=== PATIENT | female | born 1970 | race African-American/Black ===

== ENCOUNTER 2019-04-02 06:58 | Emergency (ER) | payer OTHER, BC ==
[2019-04-02 07:25] VITALS: BP 119/70; PULSE 87; TEMP 98.3; BMI 34.3
[2019-04-02] MEDS ORDERED: ONDANSETRON *ODT* 4 MG TABLET SL ONE (07:31)
[2019-04-02] MEDS ORDERED: ONDANSETRON *ODT* 4 MG TABLET ONE (07:34)
[2019-04-02] MEDS ORDERED: METOCLOPRAMIDE HCL 10 MG TABLET (FP) PO ONE ×2 (08:29→08:40)
--- NOTE | 2019-04-02 08:29 | PDOC ---
History of Present Illness - General History Source: Patient Exam Limitations: No Limitations <Jessica Peña - Last Filed: 04/02/19 09:06> <Immanuel Álvarez - Last Filed: 04/02/19 12:46> - General Chief Complaint: Injury Stated Complaint: R KNEE INJURY Time Seen by Provider: 04/02/19 07:20 Past History - Travel Traveled outside of the country in the last 30 days: No Close contact w/someone who was outside of country & ill: No - Past Medical History COPD: No HTN: Yes Hypercholesterolemia: Yes - Immunization History Immunization Up to Date: Yes - Psycho Social/Smoking Cessation Hx Smoking History: Never smoked Have you smoked in the past 12 months: No Hx Alcohol Use: No Drug/Substance Use Hx: No Substance Use Type: None <Jessica Peña - Last Filed: 04/02/19 09:06> <Immanuel Álvarez - Last Filed: 04/02/19 12:46> - Past Medical History Allergies/Adverse Reactions: Allergies Allergy/AdvReac Type Severity Reaction Status Date / Time metaxalone [From Skelaxin] Allergy Hives Verified 05/16/15 21:30 Home Medications: Ambulatory Orders Atorvastatin Ca [Lipitor -] 40 mg PO HS 05/16/15 Carvedilol 25 mg PO BID 04/02/19 Ondansetron [Zofran Odt -] 4 mg SL TID #10 od.tablet 04/02/19 Oxycodone HCl/Acetaminophen [Percocet 5-325 mg Tablet] 1 tab PO Q6H PRN #10 tab MDD 4 04/02/19 hydrALAZINE HCL [Apresoline -] 25 mg PO TID 04/02/19 Review of Systems - Review of Systems Able to Perform ROS?: Yes Comments:: 04/02/19 08:19 CONSTITUTIONAL: Absent: fever, chills, diaphoresis, generalized weakness, malaise, loss of appetite MUSCULOSKELETAL: Present: R knee pain Absent: myalgia, arthralgia, joint swelling SKIN: Absent: rash, itching, pallor NEUROLOGIC: Absent: headache, focal weakness or paresthesias, dizziness, unsteady gait, seizure, mental status changes, bladder or bowel incontinence PSYCHIATRIC: Absent: anxiety, depression, suicidal or homicidal ideation, hallucinations. Is the patient limited Guamanian proficient: No <Jessica Peña - Last Filed: 04/02/19 09:06> *Physical Exam - Vital Signs Last Vital Signs Temp Pulse Resp BP Pulse Ox 98.3 F 87 20 119/70 99 04/02/19 07:16 04/02/19 07:16 04/02/19 07:16 04/02/19 07:16 04/02/19 07:16 - Physical Exam 04/02/19 08:20 GENERAL: The patient is awake, alert, and fully oriented, in no acute distress. HEAD: Normal with no signs of trauma. EYES: Pupils equal, round and reactive to light, extraocular movements intact, sclera anicteric, conjunctiva clear. EXTREMITIES: Normal range of motion, no edema. NEUROLOGICAL: Tenderness to palpation of the distal right knee. Positive Janeth's test. (-) anterior draw, varus/valgus stress, Normal speech, normal gait. PSYCH: Normal mood, normal affect. SKIN: Warm, Dry, normal turgor, no rashes or lesions noted. <Jessica Peña - Last Filed: 04/02/19 09:06> - Vital Signs Last Vital Signs Temp Pulse Resp BP Pulse Ox 98.3 F 87 20 119/70 99 04/02/19 07:16 04/02/19 07:16 04/02/19 07:16 04/02/19 07:16 04/02/19 07:16 <Immanuel Álvarez - Last Filed: 04/02/19 12:46> ED Treatment Course - RADIOLOGY Radiology Studies Ordered: Category Date Time Status KNEE 3 POS-RIGHT [RAD] Stat Radiology 04/02/19 07:32 Ordered - Medications Given in the ED: ED Medications Discontinued Medications Generic Name Dose Route Start Last Admin Trade Name Freq PRN Reason Stop Dose Admin Ondansetron HCl 4 mg 04/02/19 07:31 04/02/19 07:35 Zofran Odt - SL 04/02/19 07:32 4 mg ONCE ONE Administration Oxycodone/Acetaminophen 1 combo 04/02/19 07:31 04/02/19 07:35 Percocet 5/325 - PO 04/02/19 07:32 1 combo ONCE ONE Administration <Jessica Peña - Last Filed: 04/02/19 09:06> - Medications Given in the ED: ED Medications Discontinued Medications Generic Name Dose Route Start Last Admin Trade Name Tolu PRN Reason Stop Dose Admin Metoclopramide HCl 10 mg 04/02/19 08:29 04/02/19 08:40 Reglan - PO 04/02/19 08:30 10 mg ONCE ONE Administration Ondansetron HCl 4 mg 04/02/19 07:31 04/02/19 07:35 Zofran Odt - SL 04/02/19 07:32 4 mg ONCE ONE Administration Oxycodone/Acetaminophen 1 combo 04/02/19 07:31 04/02/19 07:35 Percocet 5/325 - PO 04/02/19 07:32 1 combo ONCE ONE Administration <Immanuel Álvarez - Last Filed: 04/02/19 12:46> Medical Decision Making - Medical Decision Making 04/02/19 09:11 The patient is a 48-year-old female who presents the ER with right knee pain. 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 She states that it immediately swelled up. She states that it hurts to walk up the steps or to squat. Denies fevers, chills, numbness and tingling and weakness the affected extremity. A/P: Right knee pain On exam positive Rich's test with medial stressing of the right foot. X-ray shows no acute pathology. Oxycodone given for relief of pain. Patient took Tylenol at home with no relief yesterday. Concern for meniscus injury We will refer to orthopedics. Percocet prescription written. I stop was referenced. No outstanding prescriptions for narcotics noted Patient given knee immobilizer and crutches, weight-bear as tolerated Discharge home I discussed the physical exam findings, ancillary test results and final diagnoses with the patient. I answered all of the patient's questions. The patient was satisfied with the care received and felt comfortable with the discharge plan and treatment plan. The Patient agrees to follow up with the primary care physician/specialist within 24-72 hours. Return precautions were given. <Jessica Peña - Last Filed: 04/02/19 09:06> - Medical Decision Making 04/02/19 12:46 I reviewed the case of the mid-level practitioner and was available for consultation while in the emergency department <Immanuel Álvarez - Last Filed: 04/02/19 12:46> Discharge - Discharge Information Problems reviewed: Yes - Admission No - Additional Discharge Information Prescription Drug Monitoring Program (I-STOP) results: I-STOP reviewed and no issues identified (Reference #: [id number]) <Jessica Peña - Last Filed: 04/02/19 09:06> <Immanuel Álvarez - Last Filed: 04/02/19 12:46> - Discharge Information Clinical Impression/Diagnosis: Right knee pain Qualifiers: Chronicity: acute Qualified Code(s): M25.561 - Pain in right knee Condition: Stable Disposition: HOME - Additional Discharge Information Prescriptions: Ondansetron [Zofran Odt -] 4 mg SL TID #10 od.tablet Oxycodone HCl/Acetaminophen [Percocet 5-325 mg Tablet] 1 tab PO Q6H PRN #10 tab MDD 4 PRN Reason: Pain - Follow up/Referral Referrals: Minal Rachel [Primary Care Provider] - Michael Jackson MD [Staff Physician] - - Patient Discharge Instructions Patient Printed Discharge Instructions: DI for Knee Pain Additional Instructions: You were evaluated for your knee pain today I suspect you may have injured your meniscus Take the Percocet every 6 hours as needed for pain. Do not drink or drive after taking this medication as it may make you drowsy You may apply heat to the area to help with your pain. Please wear the knee immobilizer and use the crutches. You may weight-bear as tolerated. You may take the knee immobilizer off to shower. Please follow-up with orthopedics within the week. A referral has been provided to you. Return to the ER for worsening pain, numbness and tingling down the leg or if you have any changes in your symptoms. - Post Discharge Activity Work/Back to School Note: Back to Work
== END 2019-04-02 09:30 | disposition home or self-care (01) ==
LOC: JER 06:58
CPT/HCPCS: 73562-TC-RT-FY; 99282-25; Q0162

== ENCOUNTER 2020-01-11 23:04 | Inpatient (IN) | payer BC, OTHER ==
--- OUTSIDE RECORDS SUMMARY | 2020-01-11 23:31 | XMS ---
:1970 [facility] Care Team Providers Name Role Phone Merary De La Cruz Unavailable Unavailable Errol Wilkinson MD Unavailable Unavailable Other Unavailable Unavailable MD Joyce Unavailable Unavailable MD Demario Unavailable Unavailable MD Demario Unavailable Unavailable MD Demario Unavailable Unavailable Re-disclosure Warning The records that you are about to access may contain information from federally- assisted alcohol or drug abuse programs. If such information is present, then the following federally mandated warning applies: This information has been disclosed to you from records protected by federal confidentiality rules (42 CFR part 2). The federal rules prohibit you from making any further disclosure of this information unless further disclosure is expressly permitted by the written consent of the person to whom it pertains or as otherwise permitted by 42 CFR part 2. A general authorization for the release of medical or other information is NOT sufficient for this purpose. The Federal rules restrict any use of the information to criminally investigate or prosecute any alcohol or drug abuse patient.The records that you are about to access may contain highly sensitive health information, the redisclosure of which is protected by Article 27-F of the [place] State Public Health law. If you continue you may haveaccess to information: Regarding HIV / AIDS; Provided by facilities licensed or operated by the [facility] Office of Mental Health; or Provided by the [facility] Office for People With Developmental Disabilities. If such information is present, then the following [facility] mandated warning applies: This information has been disclosed to you from confidential records which are protected by state law. State law prohibits you from making any further disclosure of this information without the specific written consent of the person to whom it pertains, or as otherwise permitted by law. Any unauthorized further disclosure in violation of state law may result in a fine or senior care sentence or both. A general authorization for the release of medical or other information is NOT sufficient authorization for further disclosure. Allergies and Adverse Reactions Type Description Substance Reaction Status Data Source(s ) Drug allergy metaxalone metaxalone [facility] Encounters Encounter Providers Location Date Indications Data Source(s ) Outpatient Attender: ICU-LAB 10/21/2019 [facility] Josh Cook 10:05:00 AM Hospit al EDT - 10/21/2019 11:59:00 PM EDT Patient discharged. Emergency Attender: Merary ICU-EMERG 09/17/2019 COVID TEST S - Trisha Quirosttender: Doctor 11:58:00 AM EDT Angelica Other - 09/17/2019 [facility] 12:45:00 PM EDT COVID TEST Patient discharged. Emergency Attender: Verónica ICU-EMERG 09/16/2019 RAPID COVID [facility] Josh Hanks 06:31:00 PM EDT - TEST FOR Marii e CHERRYttender: Doctor 09/16/2019 [facility] Other 08:19:00 PM EDT RAPID COVID TEST FOR DIALYSIS Patient discharged. Outpatient Attender: Errol 04/09/2019 08:43:00 AM [facility] Wilkinson MD [facility] Hospital SCREENING Medications Medication Brand Start Product Dose Route Administrative Pharmacy [facility] Indications Reaction Description Data Name Date Form Instructions Instructions Source(s) Hydralazine hydrAL 1 P78502 active HydrALA ZINE [facility] Hydrochlori AZINE {tab( Hydrochlori d Health de 50 MG 50 mg s)} e System Oral Tablet oral hydrALAZINE tablet 50 mg oral tablet atorvastati atorva 1 K53092 active Lipitor [facility] n 40 MG statin {tab( Health Oral Tablet 40 mg s)} System atorvastati oral n 40 mg tablet oral tablet carvedilol carved 2 H67817 active Carvedil ol [facility] 25 MG Oral ilol {tab( Health Tablet 25 mg s)} System carvedilol oral 25 mg oral tablet tablet Insurance Providers Payer name Policy type Policy ID Covered Covered green party's Policy P armaan / Coverage green party ID relationship to [employer] ormation type [place] [employer] [id number] 1 [id number] [facility] BLUE CROSS [id number] PT [id number] [place] [id number] SP [id number] BC INDEMNITY [id number] SP [id number] PENDING WC/NF [id number] SP [id number] ONLY Problems, Conditions, and Diagnoses Code Display Name Description Problem Type Effective Data Sour ce(s) Dates I12.0 Hypertensive Hypertensive renal Diagnosis 09/17/2019 [facility] - New chronic kidney disease with stage 11:58:00 AM R ochelle disease with 5 chronic kidney EDT Hospit al stage 5 chronic disease or end kidney disease or stage renal disease end stage renal disease N18.6 End stage renal End-stage renal Diagnosis 09/17/2019 S - New disease disease 11:58:00 AM [facility] COVID TEST COVID TEST Diagnosis 09/17/2019 S - New 11:58:00 AM [facility] Z11.59 Encounter for Special screening Diagnosis 09/17/2019 [facility] - New screening for examination for 11:58:00 AM [facility] other viral other specified EDT Hospital diseases viral diseases RAPID COVID TEST RAPID COVID TEST Diagnosis 09/16/2019 [facility] S - New FOR DIALYSIS FOR DIALYSIS 06:31:00 PM [facility] E78.5 Hyperlipidemia, Hyperlipidemia Diagnosis 09/16/2019 S - New unspecified 06:31:00 PM [facility] Z13.9 Encounter for Encounter for Diagnosis 09/16/2019 S - Ne w screening, screening 06:31:[address] [facility] Z03.818 Encounter for Encounter for Diagnosis 09/16/2019 S - Ne w observation for observation for 06:31:00 PM [facility]art suspected suspected exposure EDT Hospit al exposure to other to other biological biological agents agent, ruled out ruled out Z12.39 Encounter for Z12.39 Diagnosis 04/09/2019 [facility] other screening 08:43:00 AM Hospital for malignant EST neoplasm of breast Z12.31 Encounter for Z12.31 Diagnosis 04/09/2019 [facility] screening 08:43:00 AM Hospital mammogram for EST malignant neoplasm of breast Surgeries/Procedures Procedure Description Date Indications Data Source(s) Venipuncture 10/21/2019 [facility] th 10:08:02 AM EDT - System 10/21/2019 12:00:07 PM EDT COVID-19.. RNA Swab 09/17/2019 [facility] 12:07:48 PM EDT - System 09/17/2019 12:08:00 PM EDT Results ID Date Data Source [id number] 11/29/2019 01:41:00 PM EDT [facility] Name Value Range Interpretation Code Description Data Valery rce(s) Supporting Document(s ) SARS-CoV-2 [facility] RNA [facility] Ql ZARINA+probe This lab was ordered by [facility] a nd reported by [facility]. ID Date Data Source [id number] 11/02/2019 11:53:00 AM EDT [facility] Name Value Range Interpretation Code Description Data Valery rce(s) Supporting Document(s ) SARS-CoV-2 [facility] RNA [facility] Ql ZARINA+probe This lab was ordered by [facility] a nd reported by [facility]. ID Date Data Source [id number] 10/27/2019 02:01:23 AM EDT [facility] Name Value Range Interpretation Description Data Sup porting Code Source(s) Document(s ) 55258-4 NEGATIVE Testing Normal (applies COVID-19.. [facility] using Leos ID results) NOW COVID-19, an isothermal nucleic acid amplification technology for the qualitative detection of nucleic acid from the SARS-CoV-2 viral RNA in respiratory specimens. The ID NOW COVID-19 test has been approved by the Food and Drug Administration (FDA) under an Emergency Use Authorization for use by authorized laboratories. Reference Range: NEGATIVE . ID Date Data Source [id number] 10/27/2019 02:01:23 AM EDT [facility] Name Value Range Interpretation Description Data Sup porting Code Source(s) Document(s ) 35585-5 NEGATIVE Testing Normal (applies COVID-19.. [facility] was performed to [facility] using [facility] ID results) NOW COVID-19, an isothermal nucleic acid amplification technology for the qualitative detection of nucleic acid from the SARS-CoV-2 viral RNA in respiratory specimens. The ID NOW COVID-19 test has been approved by the Food and Drug Administration (FDA) under an Emergency Use Authorization for use by authorized laboratories. Reference Range: NEGATIVE . ID Date Data Source [id number] 09/27/2019 01:25:00 PM EDT [facility] Name Value Range Interpretation Code Description Data Valery rce(s) Supporting Document(s ) SARS-CoV-2 [facility] Ql ZARINA+probe This lab was ordered by [facility] a nd reported by [facility]. ID Date Data Source [id number] 09/17/2019 12:10:00 PM EDT [facility] Name Value Range Interpretation Code Description Data Valery rce(s) Supporting Document(s ) COVID-19.. [facility] This lab was ordered by [facility] and reported by [facility]. ID Date Data Source [id number] 09/16/2019 06:41:00 PM EDT [facility] Name Value Range Interpretation Code Description Data Valery rce(s) Supporting Document(s ) COVID-19.. [facility] This lab was ordered by [facility] and reported by [facility]. ID Date Data Source [id number] 09/13/2019 04:32:00 PM EDT [facility] Name Value Range Interpretation Code Description Data Valery rce(s) Supporting Document(s ) COV2 [facility] This lab was ordered by MITRA MOY a nd reported by [facility]. ID Date Data Source [id number] 08/28/2019 05:04:00 PM EDT [facility] Name Value Range Interpretation Code Description Data Valery rce(s) Supporting Document(s ) COV2 [facility] This lab was ordered by MITRA harrison nd reported by [facility]. ID Date Data Source [id number] 07/20/2019 12:00:00 AM EDT [facility] Name Value Range Interpretation Code Description Data Valery rce(s) Supporting Document(s ) OVER [facility] This lab was ordered by [facility] and reported by [employer] [facility]. Procedure Vital Signs ID Date Data Source UNK Name Value Range Interpretation Code Description Data Source(s) Body surface area 2.1 m2 2.1 m2 [facility] from [facility] formula Body mass index 34.8 kg/m2 34.8 kg/m2 [facility] (BMI) [Ratio] [facility] Body weight 103.87 kg 103.87 kg [facility] Body height 172.72 cm 172.72 cm [facility] Body temperature 98.4 [degF] 0 - 200 Normal (applies to 98.4 [degF ] [facility] non-numeric results) [facility] Body temperature 36.8 Robyn 0 - 99.9 Normal (applies to 36.8 Robyn [facility] non-numeric results) [facility] Diastolic blood 81 mm[Hg] 0 - 999 Normal (applies to 81 mm[Hg] [facility] pressure non-numeric results) [facility] Systolic blood 149 mm[Hg] 0 - 999 Above high normal 149 mm[Hg] [facility] pressure [facility] Oxygen saturation 97 % 0 - 999 Normal (applies to 97 % [facility] in Arterial blood non-numeric results) [facility] by Pulse oximetry Respiratory rate 16 0 - 999 Normal (applies to 16 [facility] non-numeric results) [facility] Heart rate 85 0 - 999 Normal (applies to 85 [facility] non-numeric results) [facility] Body surface area 2.1 m2 2.1 m2 [facility] Derived [facility] formula Body mass index 34.8 kg/m2 34.8 kg/m2 [facility] (BMI) [Ratio] [facility] Body weight 103.87 kg 103.87 kg [facility] Body height 172.72 cm 172.72 cm [facility] Body temperature 99 [degF] 0 - 200 Normal (applies to 99 [degF] [facility] non-numeric results) [facility] Body temperature 37.2 Robyn 0 - 99.9 Normal (applies to 37.2 Robyn [facility] non-numeric results) [facility] Diastolic blood 73 mm[Hg] 0 - 999 Normal (applies to 73 mm[Hg] [facility] pressure non-numeric results) [facility] Systolic blood 134 mm[Hg] 0 - 999 Normal (applies to 134 mm[Hg] [facility] pressure non-numeric results) [facility] Oxygen saturation 98 % 0 - 999 Normal (applies to 98 % [facility] in Arterial blood non-numeric results) [facility] by Pulse oximetry Respiratory rate 17 0 - 999 Normal (applies to 17 [facility] non-numeric results) [facility] Heart rate 86 0 - 999 Normal (applies to 86 [facility] non-numeric results) [facility] Patient Treatment Plan of Care Planned Activity Planned Date Details Description Data Source (s) atorvastatin 40 MG Oral [facility] Tablet Hydralazine Hydrochloride 50 [facility] MG Oral Tablet carvedilol 25 MG Oral Tablet [facility]
--- NOTE | 2020-01-12 00:12 | PDOC ---
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 She reports that the flank pain began after a peritoneal dialysis 5 days ago, and she is concerned that the line may not have been fully primed leading to air in her peritoneum. She reports 7/10 pleuritic chest pain that radiates to her R flank. She reports speaking with her gis coordinator (Dr. Ochoa) who encouraged her to present to the ED. She reports nausea, shortness of breath, chest pain. No similar prior episodes. 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 Past History - Medical History Allergies/Adverse Reactions: Allergies Allergy/AdvReac Type Severity Reaction Status Date / Time metaxalone [From Skelaxin] Allergy Hives Verified 05/16/15 21:30 Home Medications: Ambulatory Orders Atorvastatin Ca [Lipitor -] 40 mg PO HS 05/16/15 Carvedilol 25 mg PO BID 04/02/19 Ondansetron [Zofran Odt -] 4 mg SL TID #10 od.tablet 04/02/19 Oxycodone HCl/Acetaminophen [Percocet 5-325 mg Tablet] 1 tab PO Q6H PRN #10 tab MDD 4 04/02/19 hydrALAZINE HCL [Apresoline -] 25 mg PO TID 04/02/19 COPD: No Dialysis: Yes (ESRD) HTN: Yes Hypercholesterolemia: Yes - Reproductive History Is Patient Now?: No - Immunization History Immunization Up to Date: Yes - Psycho-Social/Smoking History Smoking History: Never smoked Have you smoked in the past 12 months: No - Substance Abuse Hx (Audit-C & DAST Scrn) How often the patient has a drink containing alcohol: Never Score: In Men: 4 or > Positive; In Women: 3 or > Positive: 0 Screen Result (Pos requires Nsg. Audit-10AR): Negative Review of Systems - Review of Systems Able to Perform ROS?: Yes Comments:: 01/12/20 05:27 GENERAL/CONSTITUTIONAL: Fevers. No chills. No weakness. HEAD, EYES, EARS, NOSE AND THROAT: No change in vision. No ear pain or discharge. No sore throat. CARDIOVASCULAR: Chest pain, shortness of breath RESPIRATORY: No cough, wheezing, or hemoptysis. GASTROINTESTINAL: Nausea. No vomiting, diarrhea or constipation. GENITOURINARY: No dysuria, frequency, or change in urination. MUSCULOSKELETAL: No joint or muscle swelling or pain. No neck or back pain. SKIN: No rash NEUROLOGIC: No headache, vertigo, loss of consciousness, or change in strength/sensation. ENDOCRINE: No increased thirst. No abnormal weight change HEMATOLOGIC/LYMPHATIC: No anemia, easy bleeding, or history of blood clots. ALLERGIC/IMMUNOLOGIC: No hives or skin allergy. *Physical Exam - Vital Signs Last Vital Signs Temp Pulse Resp BP Pulse Ox 99.1 F 130 H 20 105/69 96 01/11/20 23:12 01/11/20 23:12 01/11/20 23:12 01/11/20 23:12 01/11/20 23:12 - Physical Exam 01/12/20 05:27 GENERAL: Awake, alert, and fully oriented, in no acute distress HEAD: No signs of trauma, normocephalic, atraumatic EYES: PERRLA, EOMI, sclera anicteric, conjunctiva clear ENT: Auricles normal inspection, hearing grossly normal, nares patent, oropharynx clear without exudates. Moist mucosa NECK: Normal ROM, supple, no lymphadenopathy, JVD, or masses LUNGS: No distress, speaks full sentences, clear to auscultation bilaterally HEART: Regular rate and rhythm, normal S1 and S2, no murmurs, rubs or gallops, peripheral pulses normal and equal bilaterally. ABDOMEN: Peritoneal dialysis port. Soft, nontender, normoactive bowel sounds. No guarding, no rebound. No masses EXTREMITIES : Normal inspection, Normal range of motion, no edema. No clubbing or cyanosis NEUROLOGICAL: Cranial nerves II through XII grossly intact. Normal speech, normal gait, no focal sensorimotor deficits SKIN: Warm, Dry, normal turgor, no rashes or lesions noted ED Treatment Course - LABORATORY CBC & Chemistry Diagram: 01/12/20 00:50 01/12/20 00:50 Medical Decision Making - Medical Decision Making 49F w/hx ESRD on peritoneal dialysis p/w 4 days of intermittent fevers, pleuritic chest pain, tachycardic to 130s with O2% to 95% on room air. Ddx PE given tachycardia, chest pain, decreased O2%. SBP unlikely without ascites. Pneumonia vs other infectious etiology also possible given intermittent fevers. 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 Plan: CBC CMP EKG CXR Blood cultures UA urine culture Acetaminophen Nephrology consult CTA chest pending nephrology consult Dispo: admit --- Attempted to reach Dr. Ochoa (patient's gis coordinator). No answer to contact phone number. Plan for consult with on-call gis coordinator, Dr. Deluca, prior to CTA chest. 01/12/20 03:02 Case d/w Nephrology (Dr. Deluca) Peritoneal dialysis not a contraindication to contrast load if clinical suspicion for PE. Plan for CTA Chest, HD tomorrow 01/12/20 04:51 Per imaging supervisor home energy consultant read: No PE visualized R sided pneumonia Abx ordered Plan for admission for HD tomorrow, pneumonia, worsening kidney function despite peritoneal dialysis regimen 01/12/20 05:26 Discharge - Discharge Information Problems reviewed: Yes Clinical Impression/Diagnosis: Pneumonia Qualifiers: Pneumonia type: due to unspecified organism Laterality: right Lung location: lower lobe of lung Qualified Code(s): J18.9 - Pneumonia, unspecified organism Condition: Stable - Admission Yes - Follow up/Referral - Patient Discharge Instructions - Post Discharge Activity
[2020-01-12] MEDS ORDERED: ACETAMINOPHEN 1000 MG/100 ML VIAL (NON FORMULARY) IVPB ONE ×3 (00:26→23:00)
[2020-01-12] MEDS ORDERED: PANTOPRAZOLE SODIUM 40 MG VIAL IVPUSH ONE (00:26)
[2020-01-12] MEDS ORDERED: ACETAMINOPHEN INJECTION 100 ML IVPB ONE ×2 (00:38→05:40)
[2020-01-12] MEDS ORDERED: PANTOPRAZOLE SODIUM 40 MG VIAL ONE (00:38)
[2020-01-12 01:14] LABS: BASO % 0.7 % (0-2.0); EOS % 0.4 % (0-4.5); HEMATOCRIT 41.1 % (32.4-45.2); HEMOGLOBIN 13.1 GM/dL (10.7-15.3); LYMPH % 8.4 % (8-40); MCH 28.5 pg (25.7-33.7); MCHC 31.8 g/dl (32.0-36.0); MEAN CELL VOLUME 89.5 fl (80-96); MEAN PLT VOLUME 8.6 fl (7.5-11.1); MONO % 8.8 % (3.8-10.2); NEUT % 81.7 % (42.8-82.8); PLATELET COUNT 270 K/MM3 (134-434); RDW 15.8 % (11.6-15.6)
--- NOTE | 2020-01-12 01:24 | PDOC ---
Attending Attestation - Resident Resident Name: ElsyBruno fraknlin - ED Attending Attestation I have performed the following: I have examined & evaluated the patient, The case was reviewed & discussed with the resident, I agree w/resident's findings & plan, Exceptions are as noted - HPI HPI: 01/12/20 01:22 49-year-old female with a longstanding history of kidney disease, FSGS who started peritoneal dialysis 1 month ago and presents with right sided back pain with inspiration Her technical supervisor is Valdemar She reports intermittent fevers for several days and today it was 101.1 at home 01/12/20 01:24 - Physicial Exam PE: 01/12/20 01:57 49-year-old female presents with complaint of several days of intermittent fevers, pleuritic pain and right upper back pain Head normocephalic atraumatic Neck is supple Lungs are clear to auscultation bilaterally CVS tachycardia Abdomen no rebound Right flank tenderness Skin warm and dry Neuro axox3.ambulatory - Medical Decision Making 01/12/20 01:58 plan Lals/ekg/imaging case discussed with Dr Migdalia Narayan 01/12/20 01:59 case S/O to B team, Dr Miller Discharge - Discharge Information Problems reviewed: Yes Clinical Impression/Diagnosis: Pneumonia Qualifiers: Pneumonia type: due to unspecified organism Laterality: right Lung location: lower lobe of lung Qualified Code(s): J18.9 - Pneumonia, unspecified organism Condition: Improved Disposition: HOME - Follow up/Referral - Patient Discharge Instructions - Post Discharge Activity
[2020-01-12 01:40] LABS: ALBUMIN 2.9 g/dl (3.4-5.0); ALK PHOS 98 U/L (45-117); ANION GAP 14 MMOL/L (8-16); BLOOD UREA NITROGEN 64.6 mg/dL (7-18); CHLORIDE 94 mmol/L (98-107); CO2 26 mmol/L (21-32); GLUCOSE,RANDOM 117 mg/dL (74-106); POTASSIUM 3.6 mmol/L (3.5-5.1); SGOT/AST 15 U/L (15-37); SODIUM 135 mmol/L (136-145)
[2020-01-12 01:44] LABS: BILIRUBIN,TOTAL 0.2 mg/dL (0.2-1); LIPASE 121 U/L (73-393); SGPT/ALT 28 U/L (13-61); TOT PROT 7.7 g/dl (6.4-8.2)
[2020-01-12 02:07] LABS: PROTHROMBIN TIME (PATIENT) 13.5 SEC (9.7-13.0)
[2020-01-12 02:18] LABS: ACTIVATED PTT 30.7 SECONDS (25.2-36.5); INR 1.14 (0.83-1.09)
[2020-01-12 02:47] LABS: EPI CELLS >36 /uL (0-25.1); HYALINE CASTS 4 /uL (0-3.1); URINE APPEARANCE TURBID; URINE BILIRUBIN NEGATIVE (NEGATIVE); URINE COLOR YELLOW; URINE GLUCOSE (UA) NEGATIVE (NEGATIVE); URINE KETONE NEGATIVE (NEGATIVE); URINE LEUK ESTERASE TRACE (NEGATIVE); URINE NITRITE NEGATIVE (NEGATIVE); URINE PROTEIN 3+ (NEGATIVE); URINE RBC 9 /uL (0-23.9); URINE UROBILINOGEN 0.2 mg/dL (0.2-1.0); URINE WBC 218 /uL (0-25.8)
[2020-01-12 03:42] LABS: URINE BACTERIA 1090.4 /uL (0-1359)
[2020-01-12] MEDS ORDERED: AZITHROMYCIN IVPB 500 MG in DEXTROSE 5%-WATER - 250 ML IVPB ONE (04:45)
[2020-01-12] MEDS ORDERED: CEFTRIAXONE 1,000 MG in DEXTROSE 5%-WATER - 50 ML IVPB ONE (04:45)
[2020-01-12] MEDS ORDERED: morphine CARPU-JECT 4 MG/1 ML DISP.SYRIN IVPUSH ONE (04:51)
[2020-01-12] MEDS ORDERED: CEFTRIAXONE 1 GM/50 ML BAG ONE (05:12)
--- OUTSIDE RECORDS SUMMARY | 2020-01-12 05:51 | XMS ---
:1970 Author Organization [facility] Care Team Providers Name Role Phone Antoinepadmini Bellehunter Unavailable Unavailable Errol Wilkinson MD Unavailable Unavailable [...] is protected by Article 27-F of the [facility] Public Health law. If you continue you may haveaccess to information: Regarding HIV / AIDS; Provided by facilities licensed or operated by the [facility] Office of Mental Health; or Provided by the [facility] Office for People With Developmental Disabilities. If such information is present, then the following [facility] mandated warning applies: This information has been [...] law may result in a fine or mcc sentence or both. A general authorization for the release of medical or other information is NOT sufficient authorization for further disclosure. Allergies and Adverse Reactions Type Description Substance Reaction Status Data Source(s ) Drug allergy metaxalone metaxalone [facility] Encounters Encounter Providers Location Date Indications Data Source(s ) Outpatient Attender: ICU-LAB 10/21/2019 [facility] Josh Cook 10:05:00 AM Hospit al EDT - 10/21/2019 11:59:00 PM EDT Patient discharged. Emergency Attender: Merary ICU-EMERG 09/17/2019 COVID TEST S - Trisha Thomasender: Doctor 11:58:00 AM EDT Angelica Other - 09/17/2019 [facility] 12:45:00 PM EDT COVID TEST Patient discharged. Emergency Attender: Verónica ICU-EMERG 09/16/2019 RAPID COVID [facility] Josh Hanks 06:31:00 PM EDT - TEST FOR Marii e CHERRYttender: Doctor 09/16/2019 [facility] Other 08:19:00 PM EDT RAPID COVID TEST FOR DIALYSIS Patient discharged. Outpatient Attender: Errol 04/09/2019 08:43:00 AM FRANKLIN Wilkinson MD [facility] SCREENING Medications Medication Brand Start Product Dose Route Administrative Pharmacy [facility] Indications Reaction Description Data Name Date Form Instructions Instructions Source(s) Hydralazine hydrAL 1 R63841 active HydrALA ZINE [facility] Hydrochlori AZINE {tab( Hydrochlori d Health de 50 MG 50 mg s)} e System Oral Tablet oral hydrALAZINE tablet 50 mg oral tablet atorvastati atorva 1 [id number] active Lipitor [facility] n 40 MG statin {tab( Health Oral Tablet 40 mg s)} System atorvastati oral n 40 mg tablet oral tablet carvedilol carved 2 K73228 active Carvedil ol [facility] 25 MG Oral ilol {tab( Health Tablet 25 mg s)} System carvedilol oral 25 mg oral tablet tablet Insurance Providers Payer name Policy type Policy ID Covered Covered constitution party's Policy P armaan / Coverage constitution party ID relationship to [employer] ormation type [employer] BC INDEMNITY [id number] SP [id number] BC PPO [id number] SP [id number] [place] [employer] [id number] 1 [id number] [place] BLUE CROSS [id number] PT [id number] [place] [id number] SP [id number] BC INDEMNITY [id number] SP [id number] PENDING WC/NF [id number] SP [id number] ONLY Problems, Conditions, and Diagnoses Code [...] End stage renal End-stage renal Diagnosis 09/17/2019 [facility] - New disease disease 11:58:00 AM [facility] COVID TEST COVID TEST Diagnosis 09/17/2019 [facility] - New 11:58:00 AM [facility] Z11.59 Encounter for Special screening Diagnosis 09/17/2019 [facility] - New screening for examination for 11:58:00 AM Gabriella lle other viral other specified EDT Hospital diseases viral diseases RAPID COVID TEST RAPID COVID TEST Diagnosis 09/16/2019 MH S - New FOR DIALYSIS FOR DIALYSIS 06:31:00 PM [facility] E78.5 Hyperlipidemia, Hyperlipidemia Diagnosis 09/16/2019 [facility] - New unspecified 06:31:00 PM [facility] Z13.9 Encounter for Encounter for Diagnosis 09/16/2019 S - Ne w screening, screening 06:31:00 PM [place] unspecified [facility] Z03.818 Encounter for Encounter for Diagnosis 09/16/2019 [facility] - Ne w observation for observation for 06:31:00 PM [place] suspected suspected exposure EDT Hospit al exposure to other to other biological biological agents agent, ruled out ruled out Z12.39 Encounter for Z12.39 Diagnosis 04/09/2019 [facility] s other screening 08:43:00 AM Hospital for malignant EST neoplasm of breast Z12.31 Encounter for Z12.31 Diagnosis 04/09/2019 [facility] s screening 08:43:00 AM Hospital mammogram for EST malignant neoplasm of breast Surgeries/Procedures Procedure Description Date Indications Data Source(s) Venipuncture 10/21/2019 [facility] 10:08:02 AM EDT - System 10/21/2019 12:00:07 PM EDT COVID-19.. RNA Swab 09/17/2019 [facility] 12:07:48 PM EDT - System 09/17/2019 12:08:00 PM EDT Results ID Date Data Source [id number] 11/29/2019 01:41:00 PM EDT [facility] System Name Value Range Interpretation Code Description Data Valery rce(s) Supporting Document(s ) SARS-CoV-2 [facility] RNA [facility] Ql ZARINA+probe This lab was ordered by [facility] a nd reported by [facility]. ID Date Data Source [id number] 11/02/2019 11:53:00 AM EDT [facility] Name Value Range Interpretation Code Description Data Valery rce(s) Supporting Document(s ) SARS-CoV-2 [facility] RNA [facility] Ql ZARINA+probe This lab was ordered by [facility] a nd reported by [facility]. ID Date Data Source [id number] 10/27/2019 02:01:23 AM EDT [facility] Name Value Range Interpretation Description Data Sup porting Code Source(s) Document(s ) 35573-2 NEGATIVE Testing Normal (applies COVID-19.. [facility] was performed to non-numeric Health Syst em using Leos ID results) NOW COVID-19, an isothermal nucleic acid amplification technology for the qualitative detection of nucleic acid from the SARS-CoV-2 viral RNA in respiratory specimens. The ID NOW COVID-19 test has been approved by the Food and Drug Administration (FDA) under an Emergency Use Authorization for use by authorized laboratories. Reference Range: NEGATIVE . ID Date Data Source [id number] 10/27/2019 02:01:23 AM EDT [facility] Name Value Range Interpretation Description Data Sup porting Code Source(s) Document(s ) 45923-8 NEGATIVE Testing Normal (applies COVID-19.. [facility] was performed to non-numeric Health Syst em using Leos ID results) NOW COVID-19, an isothermal nucleic acid amplification technology for the qualitative detection of nucleic acid from the SARS-CoV-2 viral RNA in respiratory specimens. The ID NOW COVID-19 test has been approved by the Food and Drug Administration (FDA) under an Emergency Use Authorization for use by authorized laboratories. Reference Range: NEGATIVE . ID Date Data Source [id number] 09/27/2019 01:25:00 PM EDT [facility] Name Value Range Interpretation Code Description Data Valery rce(s) Supporting Document(s ) SARS-CoV-2 [facility] Ql ZARINA+probe This lab was ordered by [facility] nd reported by [facility]. ID Date Data Source [id number] 09/17/2019 12:10:00 PM EDT [facility] Name Value Range Interpretation Code Description Data Valery rce(s) Supporting Document(s ) COVID-19.. [facility] This lab was ordered by [facility] and reported by [facility]. ID Date Data Source [id number] 09/16/2019 06:41:00 PM EDT [facility] Name Value Range Interpretation Code Description Data Valery rce(s) Supporting Document(s ) COVID-19.. [facility] This lab was ordered by [facility] and reported by [facility]. ID Date Data Source [id number] 09/13/2019 04:32:00 PM EDT [facility] Name Value Range Interpretation Code Description Data Valery rce(s) Supporting Document(s ) COV2 [facility] This lab was ordered by [facility] nd reported by [facility]. ID Date Data Source [id number] 08/28/2019 05:04:00 PM EDT [facility] Name Value Range Interpretation Code Description Data Valery rce(s) Supporting Document(s ) COV2 [facility] This lab was ordered by [facility] nd reported by [facility]. ID Date Data Source [id number] 07/20/2019 12:00:00 AM EDT [facility] Name Value Range Interpretation Code Description Data Valery rce(s) Supporting Document(s ) OVER [facility] This lab was ordered by [facility] and reported by [facility]. Procedure Vital Signs ID Date Data Source UNK Name Value Range Interpretation Code Description Data Source(s) Body surface area 2.1 m2 2.1 m2 [facility] Derived from Health Sy[facility] m formula Body mass index 34.8 kg/m2 34.8 [facility] Body weight 103.87 kg 103.87 kg [facility] Body height 172.72 cm 172.72 cm [facility] Body temperature 98.4 [degF] 0 - 200 Normal (applies to 98.4 [degF ] [facility] non-numeric results) [facility] Body temperature 36.8 Robyn 0 - 99.9 Normal (applies to 36.8 Robyn [facility] non-numeric results) [facility] Diastolic blood 81 mm[Hg] 0 - 999 Normal (applies to 81 mm[Hg] [facility] pressure non-numeric results) [facility] Systolic blood 149 mm[Hg] 0 - 999 Above high normal 149 mm[Hg] [facility] pressure [facility] Oxygen saturation 97 % 0 - 999 Normal (applies to 97 % [facility] in Arterial blood non-numeric results) Health System by Pulse oximetry Respiratory rate 16 0 - 999 Normal (applies to 16 [facility] non-numeric results) [facility] Heart rate 85 0 - 999 Normal (applies to 85 [facility] non-numeric results) [facility] Body surface area 2.1 m2 2.1 m2 [facility] Derived from [facility] formula Body mass index 34.8 kg/m2 34.8 kg/m2 [facility] (BMI) [Ratio] [facility] Body weight 103.87 kg 103.87 kg [facility] Body height 172.72 cm 172.72 cm [facility] Body temperature 99 [degF] 0 - 200 Normal (applies to 99 [degF] [facility] non-numeric results) [facility] Body temperature 37.2 Robyn 0 - 99.9 Normal (applies to 37.2 Robyn [facility] non-numeric results) [facility] Diastolic blood 73 mm[Hg] 0 - 999 Normal (applies to 73 mm[Hg] [facility] pressure non-numeric results) [facility] Systolic blood 134 mm[Hg] 0 - 999 Normal (applies to 134 mm[Hg] [facility] pressure non-numeric results) [facility] Oxygen saturation 98 % 0 - 999 Normal (applies to 98 % [facility] in Arterial blood non-numeric results) [facility] by Pulse oximetry Respiratory rate 17 0 - 999 Normal (applies to 17 [facility] non-numeric results) [facility] Heart rate 86 0 - 999 Normal (applies to 86 [facility] non-numeric results) [facility] Patient Treatment Plan of Care Planned Activity Planned Date Details Description Data Source (s) atorvastatin 40 MG Oral [facility] Tablet Hydralazine Hydrochloride 50 [facility] MG Oral Tablet carvedilol 25 MG Oral Tablet [facility]
[2020-01-12] MEDS ORDERED: AZITHROMYCIN IVPB 500 MG/250 ML BAG IVPB ONE (06:32)
[2020-01-12] MEDS ORDERED: ACETAMINOPHEN 325 MG TABLET (FP) PO PRN (07:10)
[2020-01-12] MEDS ORDERED: SODIUM CHLORIDE 1,000 ML IV SCH ×2 (07:15→12:45)
--- NOTE | 2020-01-12 07:15 | HP ---
CHIEF COMPLAINT: abdominal pain, low grade fever PCP: HISTORY OF PRESENT ILLNESS: patient is a 49 y/o female with a history of ESRD 2/2 to FSG, HTN, HLD, and positive JOHANA antibody who presents for difficulty breathing. Patient notes her symptoms began on with a low grade fever. By friday she had difficulty breathing,a nd now she reports she has difficulty taking deep breaths in due to abdominal pain. patient began dialysis in 2019 after she had COVID and it worsened her kidney function. December 16 her hemacath was removed and she started periotoneal dialysis. Patient has peritoneal dialysis 4 times a day at home. Patient currently complains of pain and low grade fever. Fam hx: 12 family members with kidney disease/ FSG, family currently undergoing genetic testing ER course was notable for: (1) (2) (3) Recent Travel: PAST MEDICAL HISTORY: ESRD 2/2 to FSG, HTN, HLD, and positive JOHANA PAST SURGICAL HISTORY: hemacatha placement, peritoneal catheter Social History: Smoking: denies Alcohol: denies Drugs: denies Allergies metaxalone [From Skelaxin] Allergy (Verified 05/16/15 21:30) Hives HOME MEDICATIONS: Home Medications Medication Instructions Recorded Atorvastatin Ca [Lipitor -] 40 mg PO HS 05/16/15 Carvedilol 25 mg PO DAILY PRN 04/02/19 Multivitamin [One-Daily 0 each PO DAILY 01/12/20 Multi-Vitamin] REVIEW OF SYSTEMS CONSTITUTIONAL: fever, Absent: chills, diaphoresis, generalized weakness, malaise, loss of appetite, weight change HEENT: Absent: rhinorrhea, nasal congestion, throat pain, throat swelling, difficulty swallowing, mouth swelling, ear pain, eye pain, visual changes CARDIOVASCULAR: Absent: chest pain, syncope, palpitations, irregular heart rate, lighthe adedness, peripheral edema RESPIRATORY: shortness of breath, Absent: cough, dyspnea with exertion, orthopnea, wheezing, stridor, hemoptysis GASTROINTESTINAL:abdominal pain, Absent: abdominal distension, nausea, vomiting, diarrhea, constipation, melena, hematochezia GENITOURINARY: Absent: dysuria, frequency, urgency, hesitancy, hematuria, flank pain, genital pain MUSCULOSKELETAL: Absent: myalgia, arthralgia, joint swelling, back pain, neck pain SKIN: Absent: rash, itching, pallor HEMATOLOGIC/IMMUNOLOGIC: Absent: easy bleeding, easy bruising, lymphadenopathy, frequent infections ENDOCRINE: Absent: unexplained weight gain, unexplained weight loss, heat intolerance, cold intolerance NEUROLOGIC: Absent: headache, focal weakness or paresthesias, dizziness, unsteady gait, seizure, mental status changes, bladder or bowel incontinence PSYCHIATRIC: Absent: anxiety, depression, suicidal or homicidal ideation, hallucinations. PHYSICAL EXAMINATION Vital Signs - 24 hr 01/11/20 01/12/20 01/12/20 23:12 02:33 06:02 Temperature 99.1 F Pulse Rate 130 H Pulse Rate [ 106 H Radial] Respiratory 20 Rate Blood Pressure 105/69 Blood Pressure [Right Arm] O2 Sat by Pulse 96 95 97 Oximetry (%) 01/12/20 06:05 Temperature 98.7 F Pulse Rate Pulse Rate [ 104 H Radial] Respiratory 18 Rate Blood Pressure Blood Pressure 104/73 [Right Arm] O2 Sat by Pulse Oximetry (%) GENERAL: Awake, alert, and fully oriented, in no acute distress. HEAD: Normal with no signs of trauma. EYES: Pupils equal, round and reactive to light, extraocular movements intact, EARS, NOSE, THROAT:Moist mucous membranes. LUNGS: Breath sounds equal, clear to auscultation bilaterally. No wheezes, and no crackles. No accessory muscle use. difficult for patient to take deep breaths 2/2 to pain HEART: Regular rate and rhythm, normal S1 and S2 without murmur, rub or gallop. no erythema around old hemacath site ABDOMEN: Soft, nontender, not distended, normoactive bowel sounds, no guarding, no rebound, no masses. peritoneal catheter, no erythema around site MUSCULOSKELETAL: Normal range of motion at all joints. No bony deformities or tenderness. No CVA tenderness. LOWER EXTREMITIES: 2+ pulses, warm, well-perfused. No calf tenderness. No peripheral edema. SKIN: Warm, dry, normal turgor, no rashes or lesions noted, normal capillary refill. CBC, BMP 01/12/20 00:50 01/12/20 00:50 ASSESSMENT/PLAN: patient is a 49 y/o female with a history of ESRD 2/2 to FSG, HTN, HLD, and positive JOHANA antibody who is admitted for PNA,. #PNA - Chest CTA: extensive consolidation/atelectasis - will continue Azithro and Ceftriaxone - f/u ID, PNA in setting of HD - f/u sputum cx, rsv, influenza, urine for PNA - referred pain, tylenol or tramadol, zofran for nausea QTC 430 #ESRD - will need dialysis - Dr. Deluca aware - continue auyrixia with meals #HTN - continue carvedilol daily - patient takes med prn #DVT ppx: avoid heparin products, cannot give lovenox with CKD, patient on SCD's FEN - renal diet Dispo: monitor on med/surg Family Medical History Family History: As Documented Visit type - Emergency Visit Emergency Visit: Yes ED Registration Date: 01/12/20 Care time: The patient presented to the Emergency Department on the above date and was hospitalized for further evaluation of their emergent condition. - New Patient This patient is new to me today: Yes Date on this admission: 01/14/20 - Critical Care Critical Care patient: No ATTENDING PHYSICIAN STATEMENT I saw and evaluated the patient. I reviewed the resident's note and discussed the case with the resident. I agree with the resident's findings and plan as documented. SUBJECTIVE: OBJECTIVE: ASSESSMENT AND PLAN:
[2020-01-12] MEDS ORDERED: traMADol HCL 50 MG TABLET ONE (09:14)
[2020-01-12] MEDS: POLYETHYLENE GLYCOL 3350 119 GM BTL PO SCH (10:50)
[2020-01-12] MEDS: CARVEDILOL 25 MG TABLET (FP) PO SCH (10:51)
[2020-01-12] MEDS ORDERED: PATIENT'S OWN MEDICATION (NON-FORMULARY) (Ferric Citrate [Auryxia] 210 MG) PO SCH (11:00)
[2020-01-12] MEDS: ACETAMINOPHEN 325 MG TABLET (FP) PO PRN ×2 (11:03→15:40)
--- NOTE | 2020-01-12 11:08 | EKG ---
Test Reason : Blood Pressure : / mmHG Vent. Rate : 122 BPM Atrial Rate : 122 BPM P-R Int : 134 ms QRS Dur : 082 ms QT Int : 302 ms P-R-T Axes : 013 042 -11 degrees QTc Int : 430 ms POOR DATA QUALITY, INTERPRETATION MAY BE ADVERSELY AFFECTED SINUS TACHYCARDIA T WAVE ABNORMALITY, CONSIDER INFERIOR ISCHEMIA ABNORMAL ECG NO PREVIOUS ECGS AVAILABLE Confirmed by MD Kelly, Ford ([id number]) on 01/12/2020 11:08:15 AM Referred By: Confirmed By:Ford Mendoza MD
[2020-01-12 11:50] LABS: PLATELET COUNT 260 K/MM3 (134-434); RDW 16.2 % (11.6-15.6)
[2020-01-12] MEDS: CALCIUM ACETATE 667 MG CAPSULE (FP) PO SCH ×2 (11:53→17:52)
[2020-01-12 11:54] LABS: BASO % 0.5 % (0-2.0); EOS % 0.6 % (0-4.5); HEMATOCRIT 36.9 % (32.4-45.2); HEMOGLOBIN 11.8 GM/dL (10.7-15.3); LYMPH % 7.7 % (8-40); MCH 28.7 pg (25.7-33.7); MCHC 32.1 g/dl (32.0-36.0); MEAN CELL VOLUME 89.4 fl (80-96); MEAN PLT VOLUME 8.8 fl (7.5-11.1); MONO % 8.9 % (3.8-10.2); NEUT % 82.3 % (42.8-82.8); RBC 4.13 M/mm3 (3.60-5.2); WHITE BLOOD COUNT 12.8 K/mm3 (4.0-10.0)
[2020-01-12 12:09] VITALS: BMI 357.6
[2020-01-12 12:24] LABS: ALBUMIN 2.7 g/dl (3.4-5.0); ALK PHOS 91 U/L (45-117); ANION GAP 12 MMOL/L (8-16); BILIRUBIN,TOTAL 0.3 mg/dL (0.2-1); BLOOD UREA NITROGEN 65.8 mg/dL (7-18); CALCIUM 8.8 mg/dL (8.5-10.1); CHLORIDE 92 mmol/L (98-107); CO2 26 mmol/L (21-32); GLUCOSE,RANDOM 92 mg/dL (74-106); MAGNESIUM 2.2 mg/dL (1.8-2.4); PHOSPHOROUS 6.5 mg/dL (2.5-4.9); POTASSIUM 3.3 mmol/L (3.5-5.1); SGOT/AST 8 U/L (15-37); SGPT/ALT 21 U/L (13-61); SODIUM 131 mmol/L (136-145); TOT PROT 7.3 g/dl (6.4-8.2)
[2020-01-12 12:33] LABS: CREATININE 10.7 mg/dL (0.55-1.3)
[2020-01-12] MEDS ORDERED: POTASSIUM CHLORIDE TABS 20 MEQ TABLET.ER (FP) PO ONE (13:30)
[2020-01-12] MEDS: traMADol HCL 50 MG TABLET PO PRN (13:53)
[2020-01-12] MEDS: ONDANSETRON 4 MG/2 ML VIAL IVPB PRN ×2 (13:53→21:21)
--- NOTE | 2020-01-12 15:05 | PN ---
Progress Note (short form) - Note Progress Note: ID DICTATED COMMUNITY ACQUIRED V. ATYPICAL PNEUMONIA ESRD ON PD UTI DOUBT PERITONITIS PENDING SEPSIS W/U EMPIRIC CEFTRIAXONE/ ZITHROMAX
--- NOTE | 2020-01-12 15:32 | CONS ---
INFECTIOUS DISEASE CONSULTATION DATE OF CONSULTATION: DATE OF DICTATION: 01/12/2020 HISTORY: The patient is a 49-year-old female who is evaluated for pneumonia. 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 She has a history of chronic kidney disease on peritoneal dialysis. She presents with a 3-day history of worsening cough productive of clear sputum and right-sided pleuritic type chest pain. She also experienced fever at home. She presented to the emergency room where she was evaluated. A CAT scan of the chest was performed and showed bibasilar infiltrates with atelectasis. Patient complains of pleuritic type chest pain with cough on deep inspiration. She denies any ill contacts. She is a registered nurse. 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 No recent travel. No recent hospitalizations. She is a nonsmoker. She denies any exposure to patients with COVID-19. Patient denies any urinary tract symptoms and reports that the dialysis fluid has been clear. PAST MEDICAL HISTORY: Positive for hypertension, hyperlipidemia, chronic kidney disease, end-stage renal disease on peritoneal dialysis for 1 month. Patient reports having COVID in June 2019, however, did not require treatment or hospitalization. PAST SURGICAL HISTORY: Status post peritoneal dialysis catheter. ALLERGIES: To METAXALONE. MEDICATIONS: Include Zithromax, ceftriaxone, Lipitor, Coreg, tramadol. SOCIAL HISTORY: As per HPI. LABORATORY DATA: White count 12.8, hematocrit 36.9, platelets 260. Creatinine 10.7. Blood, sputum and urine cultures pending. Urine legionella antigen pending. Urine analysis 218 white cells. PHYSICAL EXAMINATION: General: She is awake and alert. She is seated in bed in no acute distress. Vital Signs: Temperature 98.1, blood pressure 105/73, pulse 92 regular, respiration 20 per minute. HEENT: Sclerae are anicteric. Heart: Sounds S1, S2. Lungs: Clear. Decreased breath sounds at the bases. Abdomen: Distended with dialysate fluid. Extremities: Negative for edema. IMPRESSION: 1. Bibasilar pneumonia. 2. End-stage renal disease on peritoneal dialysis. 3. Urinary tract infection. 4. History of COVID-19. Await sepsis workup. Empiric antibiotic coverage with Zithromax and ceftriaxone. Will treat as a community-acquired versus atypical pneumonia as patient has not been working since March 2019. Doubt recurrent COVID, however, PCR is pending. Doubt peritonitis. Will follow. Thank you for the kind referral. LINDA WAGNER M.D. MEHRAN/[id number]
[2020-01-12] MEDS ORDERED: MORPHINE SULFATE 2 MG/ML VIAL IVPUSH ONE (15:54)
--- NOTE | 2020-01-12 16:35 | CON.NEP ---
Consult Consult Specialty:: Nephrology Referred by:: Medicine Reason for Consultation:: ESRD on PD - History of Present Illness Chief Complaint: right flank pain History of Present Illness: This is a 49 year old woman with history of ESRD, FSGS, hypertension, hyperlipidemia, Positive JOHANA antibody who presented with with right sided flank pain, low grade temperature, cough and found to have right middle/lower lobe pneumonia. Seen and examined at the bedside. She continues to have right flank pain. No fevers now. No chest pain. Does have slight cough. No N/V/D. Appetite is poor. No leg swelling. Makes urine typically. Last PD exchange was yesterday evening. Fluid has been clear. No anterior abdominal pain and no discharge or redness at PD exit site. - History Source History Provided By: Patient Limitations to Obtaining History: No Limitations - Past Medical History ...LMP: 12/18/19 ...: No - Alcohol/Substance Use Hx Alcohol Use: No - Smoking History Smoking history: Never smoked Have you smoked in the past 12 months: No Home Medications - Allergies Allergies/Adverse Reactions: Allergies Allergy/AdvReac Type Severity Reaction Status Date / Time metaxalone [From Skelaxin] Allergy Hives Verified 05/16/15 21:30 - Home Medications Home Medications: Ambulatory Orders Atorvastatin Ca [Lipitor -] 40 mg PO HS 05/16/15 Carvedilol 25 mg PO DAILY PRN 04/02/19 Ferric Citrate [Auryxia] 210 mg PO TID 01/12/20 Multivitamin [One-Daily Multi-Vitamin] 0 each PO DAILY 01/12/20 Family Medical History Family History: Unremarkable Review of Systems - Review of Systems Constitutional: reports: Fever, Loss of Appetite Eyes: reports: No Symptoms HENT: reports: Gingival Bleeding Neck: reports: No Symptoms Cardiovascular: reports: Shortness of Breath. denies: Chest Pain, Edema, Palpitations Respiratory: reports: Cough, SOB. denies: Hemoptysis, Orthopnea Gastrointestinal: denies: Abdominal Pain Genitourinary: reports: Flank Pain. denies: Dysuria Musculoskeletal: reports: Back Pain. denies: Extremity Pain Integumentary: reports: No Symptoms Neurological: reports: No Symptoms Endocrine: reports: No Symptoms Nephrology Consult - Height Height: 5 ft 8 in - Weight Weight: 1066.977 kg - BMI Body Mass Index (BMI): 357.6 - Lab Results CBC,BMP: CBC, BMP 01/12/20 11:30 01/12/20 11:30 Anion Gap: Anion Gap Anion Gap 12 MMOL/L (8-16) 01/12/20 11:30 - Imaging Chest X-ray: Report Reviewed Cat Scan: Report Reviewed - Physical Examination Vital Signs: Vital Signs Temperature 98.3 F 01/12/20 14:00 Pulse Rate 97 H 01/12/20 14:00 Respiratory Rate 16 01/12/20 14:00 Blood Pressure 117/76 01/12/20 14:00 O2 Sat by Pulse Oximetry (%) 98 01/12/20 11:06 Constitutional: Yes: No Distress, Calm Eyes: Yes: Conjunctiva Clear HENT: Yes: Atraumatic Neck: Yes: Supple Cardiovascular: Yes: Regular Rate and Rhythm Respiratory: Yes: Regular, CTA Bilaterally. No: Rales, Rhonchi Gastrointestinal: Yes: Soft, Other (PD catheter exit site is clean). No: Tenderness Renal/: Yes: CVA Tenderness - Right. No: Bladder Distention, CVA Tenderness - Left Extremities: No: Cold, Cool, Cyanosis Edema: No Neurological: Yes: Alert, Oriented Assessment/Plan 49 year old woman with history of ESRD, FSGS, hypertension, hyperlipidemia, Positive JOHANA antibody who presented with with right sided flank pain, low grade temperature, cough and found to have right middle/lower lobe pneumonia. 1. Community Acquired pneumonia 2. ESRD on PD 3. Hx of FSGS/CKD 4. Hypertension 5. Hyperlipidemia Continue empiric antibiotics per ID and follow up cultures Will continue intermittent PD with manual exchanges will use 2.5% dextrose solution with 2L exchanges done every 6 hours. Will check PD fluid cell count and culture as well pain control w/o NSAIDs Continue Coreg for hypertension Continue potassium chloride 40meq BID, titrate as needed to keep K > 3.5 Start stool softeners to prevent constipation Thank you Will follow Rashad Adorno DO
[2020-01-12] MEDS ORDERED: MECLIZINE HCL 12.5 MG TABLET PO ONE (17:51)
--- NOTE | 2020-01-12 20:22 | PN ---
Teaching Attending Note Name of Resident: Jodie Garcia ATTENDING PHYSICIAN STATEMENT I saw and evaluated the patient. I reviewed the resident's note and discussed the case with the resident. I agree with the resident's findings and plan as documented. SUBJECTIVE: Patient seen and examined at bedside, presents w/ uremia requiring HD. VSS. OBJECTIVE: GA ambulating around room, AAOx3 HEENT NC/AT, EOMI, no JVD Chest CTAB CVS s1, S2+, RRR Abd PD dialysis catheter+ no PUS, no erythema, NT Ext no LE edema Vital Signs (72 hours) 01/11/20 01/12/20 01/12/20 23:12 02:33 06:02 Temperature 99.1 F Pulse Rate 130 H Pulse Rate [ 106 H Radial] Respiratory 20 Rate Blood Pressure 105/69 Blood Pressure [Right Arm] O2 Sat by Pulse 96 95 97 Oximetry (%) 01/12/20 01/12/20 01/12/20 06:05 07:10 10:50 Temperature 98.7 F 98.1 F Pulse Rate Pulse Rate [ 104 H 80 Radial] Respiratory 18 20 Rate Blood Pressure Blood Pressure 104/73 105/72 [Right Arm] O2 Sat by Pulse 98 95 Oximetry (%) 01/12/20 01/12/20 01/12/20 11:06 14:00 16:56 Temperature 98.1 F 98.3 F Pulse Rate 112 H 97 H 92 H Pulse Rate [ Radial] Respiratory 19 16 17 Rate Blood Pressure 105/73 117/76 139/83 Blood Pressure [Right Arm] O2 Sat by Pulse 95 96 Oximetry (%) Laboratory Results - last 24 hr 01/12/20 01/12/20 01/12/20 00:48 00:50 00:50 WBC 14.0 H RBC 4.60 Hgb 13.1 Hct 41.1 MCV 89.5 MCH 28.5 MCHC 31.8 L RDW 15.8 H Plt Count 270 MPV 8.6 Absolute Neuts (auto) 11.5 H Neutrophils % 81.7 Lymphocytes % 8.4 Monocytes % 8.8 Eosinophils % 0.4 Basophils % 0.7 Nucleated RBC % 0 PT with INR 13.50 H INR 1.14 H PTT (Actin FS) 30.7 D-Dimer Sodium Potassium Chloride Carbon Dioxide Anion Gap BUN Creatinine Est GFR (CKD-EPI)AfAm Est GFR (CKD-EPI)NonAf POC Glucometer 136 Random Glucose Lactic Acid Calcium Phosphorus Magnesium Total Bilirubin AST ALT Alkaline Phosphatase Troponin I Total Protein Albumin Lipase Serum , Qual Urine Color Urine Appearance Urine pH Ur Specific [place] Urine Protein Urine Glucose (UA) Urine Ketones Urine Blood Urine Nitrite Urine Bilirubin Urine Urobilinogen Ur Leukocyte Esterase Urine WBC (Auto) Urine RBC (Auto) Urine Casts (Auto) U Pathogenic Cast Auto U Epithel Cells (Auto) Urine Bacteria (Auto) 01/12/20 01/12/20 01/12/20 00:50 00:50 00:50 WBC RBC Hgb Hct MCV MCH MCHC RDW Plt Count MPV Absolute Neuts (auto) Neutrophils % Lymphocytes % Monocytes % Eosinophils % Basophils % Nucleated RBC % PT with INR INR PTT (Actin FS) D-Dimer Sodium 135 L Potassium 3.6 Chloride 94 L Carbon Dioxide 26 Anion Gap 14 BUN 64.6 H Creatinine 10.0 H* Est GFR (CKD-EPI)AfAm 4.73 Est GFR (CKD-EPI)NonAf 4.08 POC Glucometer Random Glucose 117 H Lactic Acid 0.8 Calcium 9.0 Phosphorus Magnesium Total Bilirubin 0.2 AST 15 ALT 28 Alkaline Phosphatase 98 Troponin I < 0.02 Total Protein 7.7 Albumin 2.9 L Lipase 121 Serum , Qual Negative Urine Color Urine Appearance Urine pH Ur Specific [place] Urine Protein Urine Glucose (UA) Urine Ketones Urine Blood Urine Nitrite Urine Bilirubin Urine Urobilinogen Ur Leukocyte Esterase Urine WBC (Auto) Urine RBC (Auto) Urine Casts (Auto) U Pathogenic Cast Auto U Epithel Cells (Auto) Urine Bacteria (Auto) 01/12/20 01/12/20 01/12/20 00:50 02:01 11:30 WBC 12.8 H RBC 4.13 Hgb 11.8 Hct 36.9 MCV 89.4 MCH 28.7 MCHC 32.1 RDW 16.2 H Plt Count 260 MPV 8.8 Absolute Neuts (auto) 10.6 H Neutrophils % 82.3 Lymphocytes % 7.7 L Monocytes % 8.9 Eosinophils % 0.6 Basophils % 0.5 Nucleated RBC % 0 PT with INR INR PTT (Actin FS) D-Dimer 4984 H Sodium Potassium Chloride Carbon Dioxide Anion Gap BUN Creatinine Est GFR (CKD-EPI)AfAm Est GFR (CKD-EPI)NonAf POC Glucometer Random Glucose Lactic Acid Calcium Phosphorus Magnesium Total Bilirubin AST ALT Alkaline Phosphatase Troponin I Total Protein Albumin Lipase Serum , Qual Urine Color Yellow Urine Appearance Turbid Urine pH 5.0 Ur Specific [place] 1.019 Urine Protein 3+ H Urine Glucose (UA) Negative Urine Ketones Negative Urine Blood Trace Urine Nitrite Negative Urine Bilirubin Negative Urine Urobilinogen 0.2 Ur Leukocyte Esterase Trace Urine WBC (Auto) 218 Urine RBC (Auto) 9 Urine Casts (Auto) 4 U Pathogenic Cast Auto Few U Epithel Cells (Auto) >36 Urine Bacteria (Auto) 1090.4 01/12/20 11:30 WBC RBC Hgb Hct MCV MCH MCHC RDW Plt Count MPV Absolute Neuts (auto) Neutrophils % Lymphocytes % Monocytes % Eosinophils % Basophils % Nucleated RBC % PT with INR INR PTT (Actin FS) D-Dimer Sodium 131 L Potassium 3.3 L Chloride 92 L Carbon Dioxide 26 Anion Gap 12 BUN 65.8 H Creatinine 10.7 H* Est GFR (CKD-EPI)AfAm 4.36 Est GFR (CKD-EPI)NonAf 3.76 POC Glucometer Random Glucose 92 Lactic Acid Calcium 8.8 Phosphorus 6.5 H Magnesium 2.2 Total Bilirubin 0.3 AST 8 L ALT 21 Alkaline Phosphatase 91 Troponin I < 0.02 Total Protein 7.3 Albumin 2.7 L Lipase Serum , Qual Urine Color Urine Appearance Urine pH Ur Specific [place] Urine Protein Urine Glucose (UA) Urine Ketones Urine Blood Urine Nitrite Urine Bilirubin Urine Urobilinogen Ur Leukocyte Esterase Urine WBC (Auto) Urine RBC (Auto) Urine Casts (Auto) U Pathogenic Cast Auto U Epithel Cells (Auto) Urine Bacteria (Auto) Home Medications Medication Instructions Recorded Atorvastatin Ca [Lipitor -] 40 mg PO HS 05/16/15 Carvedilol 25 mg PO DAILY PRN 04/02/19 Ferric Citrate [Auryxia] 210 mg PO TID 01/12/20 Multivitamin [One-Daily 0 each PO DAILY 01/12/20 Multi-Vitamin] Current Medications Generic Name Dose Route Start Last Admin Trade Name Freq PRN Reason Stop Dose Admin Acetaminophen 650 mg 01/12/20 08:41 01/12/20 15:40 Tylenol - PO 650 mg Q4H PRN Administration PAIN LEVEL 4 - 6 Atorvastatin Calcium 40 mg 01/12/20 22:00 Lipitor - PO HS [facility] Calcium Acetate 667 mg 01/12/20 12:00 01/12/20 17:52 Phoslo - PO 667 mg TIDCM [facility] Administration Carvedilol 25 mg 01/12/20 10:00 01/12/20 10:51 Coreg - PO Not Given DAILY [facility] Ceftriaxone Sodium 1 gm/ 50 mls @ 100 mls/hr 01/13/20 10:00 Dextrose IVPB DAILY [facility] Protocol Azithromycin 250 mg/ Dextrose 250 mls @ 250 mls/hr 01/13/20 10:00 IVPB DAILY [facility] Sodium Chloride 1,000 mls @ 100 mls/hr 01/12/20 12:45 01/12/20 13:00 Normal Saline - IV 01/12/20 22:44 100 mls/hr ASDIR [facility] Administration Peritoneal Dialysis Solution 2,000 mls @ 4,000 mls/hr 01/12/20 16:45 Dianeal 2.5% IP Q6H [facility] Protocol Ondansetron HCl 8 mg 01/12/20 08:40 01/12/20 13:53 Zofran Injection IVPB 8 mg Q6H PRN Administration NAUSEA Polyethylene Glycol 17 gm 01/12/20 10:00 01/12/20 10:50 Miralax (For Daily Use) - PO 17 gm DAILY [facility] Administration Potassium Chloride 40 meq 01/13/20 10:00 K-Dur - PO DAILY [facility] Tramadol HCl 50 mg 01/12/20 08:40 01/12/20 13:53 Ultram - PO 50 mg Q6H PRN Administration PAIN LEVEL 6-10 ASSESSMENT AND PLAN: 49 F CAP PNA Uremia requiring HD ESRD 2/2 FSGS on Peritoneal HD HTN HLD Chronic pain ACD Depression Plan: Ceftriaxone/Azithromycin for CAP Send urine legionella/strep/pneumo/RSV/FLU/covid pending HD per renal service Given Flagyl in ED Replace electrolytes DVT ppx: Heparin SC
[2020-01-12] MEDS: ATORVASTATIN CA 40 MG TABLET (FP) PO SCH (21:21)
[2020-01-12] MEDS: PERITONEAL DIALYSIS 2.5% SOLN 2,000 ML IP SCH ×2 (21:22→22:57)
[2020-01-13] MEDS: PERITONEAL DIALYSIS 2.5% SOLN 2,000 ML IP SCH ×3 (03:53→18:30)
[2020-01-13 06:45] LABS: BASO % 0.7 % (0-2.0); EOS % 1.6 % (0-4.5); HEMOGLOBIN 11.9 GM/dL (10.7-15.3); LYMPH % 14.4 % (8-40); MCH 28.8 pg (25.7-33.7); MCHC 32.3 g/dl (32.0-36.0); MEAN CELL VOLUME 89.1 fl (80-96); MEAN PLT VOLUME 8.8 fl (7.5-11.1); MONO % 8.5 % (3.8-10.2); NEUT % 74.8 % (42.8-82.8); PLATELET COUNT 311 K/MM3 (134-434); RBC 4.15 M/mm3 (3.60-5.2)
[2020-01-13 07:17] LABS: ALBUMIN 2.8 g/dl (3.4-5.0); BLOOD UREA NITROGEN 64.8 mg/dL (7-18); CALCIUM 8.8 mg/dL (8.5-10.1); MAGNESIUM 0.8 mg/dL (1.8-2.4); POTASSIUM 3.6 mmol/L (3.5-5.1)
[2020-01-13 07:19] LABS: BILIRUBIN,TOTAL 0.3 mg/dL (0.2-1); PHOSPHOROUS 6.6 mg/dL (2.5-4.9); TOT PROT 7.6 g/dl (6.4-8.2)
[2020-01-13 07:27] LABS: CREATININE 10.8 mg/dL (0.55-1.3)
[2020-01-13] MEDS: CALCIUM ACETATE 667 MG CAPSULE (FP) PO SCH ×4 (08:00→17:25)
[2020-01-13] MEDS ORDERED: SODIUM PHOSPHATE/NA BIPHOS 133 ML ENEMA PR ONE (08:51)
[2020-01-13] MEDS ORDERED: cefTRIAXone SODIUM 1 GM VIAL ONE (09:43)
[2020-01-13] MEDS ORDERED: PT OWN MED DRAWER 7, Y5N ONE ×3 (09:43→14:22)
[2020-01-13] MEDS ORDERED: DEXTROSE 5%-WATER - 50 ML IVPB ONE (09:43)
[2020-01-13] MEDS ORDERED: MAGNESIUM SULF 50% (8.12 MEQ/2 ML-1 GM VIAL) IVPB ONE (10:00)
[2020-01-13] MEDS ORDERED: POTASSIUM CHLORIDE TABS 10 MEQ TABLET.ER (FP) PO SCH (10:00)
[2020-01-13] MEDS: traMADol HCL 50 MG TABLET PO PRN (10:27)
[2020-01-13] MEDS: CARVEDILOL 25 MG TABLET (FP) PO SCH (10:29)
[2020-01-13] MEDS: CEFTRIAXONE 1 GM in DEXTROSE 5%-WATER - 50 ML IVPB SCH (10:30)
[2020-01-13] MEDS: POLYETHYLENE GLYCOL 3350 119 GM BTL PO SCH (10:31)
--- NOTE | 2020-01-13 11:49 | PN ---
Progress Note, Physician History of Present Illness: Seen and examined at the bedside awake and alert still has intermittent right flank pain able to do PD exchanges w/o issue fluid is clear no fever or chills no sob, cp, abdominal pain, V/D Has nausea with opioids - Current Medication List Current Medications: Active Medications Acetaminophen (Tylenol -) 650 mg PO Q4H PRN PRN Reason: PAIN LEVEL 4 - 6 Last Admin: 01/12/20 15:40 Dose: 650 mg Documented by: Atorvastatin Calcium (Lipitor -) 40 mg PO HS [facility] Last Admin: 01/12/20 21:21 Dose: 40 mg Documented by: Calcium Acetate (Phoslo -) 667 mg PO TIDCM [facility] Last Admin: 01/13/20 10:30 Dose: 667 mg Documented by: Carvedilol (Coreg -) 25 mg PO DAILY [facility] Last Admin: 01/13/20 10:29 Dose: 25 mg Documented by: Ceftriaxone Sodium 1 gm/ (Dextrose) 50 mls @ 100 mls/hr IVPB DAILY [facility]; Protocol Last Admin: 01/13/20 10:30 Dose: 100 mls/hr Documented by: Azithromycin 250 mg/ Dextrose 250 mls @ 250 mls/hr IVPB DAILY [facility] Peritoneal Dialysis Solution (Dianeal 2.5%) 2,000 mls @ 4,000 mls/hr IP Q6H [facility]; Protocol Last Admin: 01/13/20 03:53 Dose: 4,000 mls/hr Documented by: Ondansetron HCl (Zofran Injection) 8 mg IVPB Q6H PRN PRN Reason: NAUSEA Last Admin: 01/12/20 21:21 Dose: 8 mg Documented by: Polyethylene Glycol (Miralax (For Daily Use) -) 17 gm PO DAILY [facility] Last Admin: 01/13/20 10:31 Dose: Not Given Documented by: Tramadol HCl (Ultram -) 50 mg PO Q6H PRN PRN Reason: PAIN LEVEL 6-10 Last Admin: 01/13/20 10:27 Dose: 50 mg Documented by: - Objective Vital Signs: Vital Signs Temperature 99.0 F 01/13/20 06:00 Pulse Rate 102 H 01/13/20 06:00 Respiratory Rate 19 01/13/20 06:00 Blood Pressure 118/74 01/13/20 06:00 O2 Sat by Pulse Oximetry (%) 92 L 01/12/20 21:00 Constitutional: Yes: No Distress, Calm HENT: Yes: Atraumatic Neck: Yes: Supple Cardiovascular: Yes: Regular Rate and Rhythm Respiratory: Yes: Regular Gastrointestinal: Yes: Soft. No: Tenderness Extremities: No: Cold, Cool, Cyanosis Edema: No Neurological: Yes: Alert Labs: CBC, BMP 01/13/20 05:41 01/13/20 05:41 INR, PTT INR 1.14 (0.83-1.09) H 01/12/20 00:50 Assessment/Plan 49 year old woman with history of ESRD, FSGS, hypertension, hyperlipidemia, Positive JOHANA antibody who presented with with right sided flank pain, low grade temperature, cough and found to have right middle/lower lobe pneumonia. 1. Community Acquired pneumonia 2. ESRD on PD 3. Hx of FSGS/CKD 4. Hypertension 5. Hyperlipidemia Continue empiric antibiotics per ID and follow up cultures continue intermittent PD with manual exchanges will use 2.5% dextrose solution with 2L exchanges done every 6 hours. Will check PD fluid cell count and culture as well (pending) pain control w/o NSAIDs will add chlorpromazine for nausea Continue Coreg for hypertension Continue potassium chloride 40meq BID, titrate as needed to keep K > 3.5 Start stool softeners to prevent constipation Thank you Will follow Rashad Adorno DO
[2020-01-13] MEDS: AZITHROMYCIN IVPB 250 MG in DEXTROSE 5%-WATER - 250 ML IVPB SCH (12:06)
[2020-01-13] MEDS: ACETAMINOPHEN 325 MG TABLET (FP) PO PRN ×2 (12:07→21:16)
--- NOTE | 2020-01-13 13:44 | PN ---
Teaching Attending Note Name of Resident: Luis Zepeda ATTENDING PHYSICIAN STATEMENT I saw and evaluated the patient. I reviewed the resident's note and discussed the case with the resident. I agree with the resident's findings and plan as documented. SUBJECTIVE: Patient complains of pleuritic right sided chest/back pain. OBJECTIVE: Vital Signs Period Temp Pulse Resp BP Sys/Cabezas Pulse Ox Last 24 Hr 98.2 F-99.0 F 92-102 16-19 117-139/64-83 92-96 HEART: S1S2, RRR LUNGS: Clear ABDOMEN: Obese, soft, non-tender, non-distended, normal BS, PD catheter site clean, no CVA tenderness EXTREMITIES: No edema Laboratory Results - last 24 hr 01/12/20 01/13/20 01/13/20 06:00 05:41 05:41 WBC 10.0 RBC 4.15 Hgb 11.9 Hct 37.0 MCV 89.1 MCH 28.8 MCHC 32.3 RDW 16.0 H Plt Count 311 MPV 8.8 Absolute Neuts (auto) 7.5 Neutrophils % 74.8 Lymphocytes % 14.4 D Monocytes % 8.5 Eosinophils % 1.6 D Basophils % 0.7 Nucleated RBC % 0 Sodium 132 L Potassium 3.6 Chloride 93 L Carbon Dioxide 26 Anion Gap 14 BUN 64.8 H Creatinine 10.8 H* Est GFR (CKD-EPI)AfAm 4.31 Est GFR (CKD-EPI)NonAf 3.72 Random Glucose 106 Calcium 8.8 Phosphorus 6.6 H Magnesium 0.8 L Total Bilirubin 0.3 AST 10 L ALT 23 Alkaline Phosphatase 99 Total Protein 7.6 Albumin 2.8 L COVID-19 ([facility]) Not detected Current Medications Generic Name Dose Route Start Last Admin Trade Name Freq PRN Reason Stop Dose Admin Acetaminophen 650 mg 01/12/20 08:41 01/13/20 12:07 Tylenol - PO 650 mg Q4H PRN Administration PAIN LEVEL 4 - 6 Atorvastatin Calcium 40 mg 01/12/20 22:00 01/12/20 21:21 Lipitor - PO 40 mg HS [facility] Administration Calcium Acetate 667 mg 01/12/20 12:00 01/13/20 10:30 Phoslo - PO 667 mg TIDCM [facility] Administration Carvedilol 25 mg 01/12/20 10:00 01/13/20 10:29 Coreg - PO 25 mg DAILY [facility] Administration Chlorpromazine HCl 25 mg 01/13/20 11:44 Thorazine - PO QID PRN NAUSEA Ceftriaxone Sodium 1 gm/ 50 mls @ 100 mls/hr 01/13/20 10:00 01/13/20 10:30 Dextrose IVPB 100 mls/hr DAILY [facility] Administration Protocol Azithromycin 250 mg/ Dextrose 250 mls @ 250 mls/hr 01/13/20 10:00 01/13/20 12:06 IVPB 250 mls/hr DAILY [facility] Administration Peritoneal Dialysis Solution 2,000 mls @ 4,000 mls/hr 01/12/20 16:45 01/13/20 11:55 Dianeal 2.5% IP 4,000 mls/hr Q6H [facility] Administration Protocol Polyethylene Glycol 17 gm 01/12/20 10:00 01/13/20 10:31 Miralax (For Daily Use) - PO Not Given DAILY [facility] Potassium Chloride 40 meq 01/13/20 22:00 K-Dur - PO BID [facility] Tramadol HCl 50 mg 01/12/20 08:40 01/13/20 10:27 Ultram - PO 50 mg Q6H PRN Administration PAIN LEVEL 6-10 ASSESSMENT AND PLAN: This is a 49 year old woman with a history of HTN, hyperlipidemia, ESRD, FSGS, 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 1. Sepsis secondary to pneumonia - Leukocytosis, tachycardia improved - Continue ceftriaxone, azithromycin - Urine Legionella, Pneumococcus Ag negative - COVID-19 PCR negative 2. Hyponatremia 3. Hypokalemia - Continue K-Dur 4. ESRD, history of FSGS - Continue PD as per nephrology - Continue PhosLo 5. HTN - Continue Coreg 6. Hyperlipidemia - Continue Lipitor
--- NOTE | 2020-01-13 14:29 | PN ---
Physical Exam: SUBJECTIVE: Patient seen and examined at bedside, reports intermittent sharp 10/10 pleuritic flank pain. Endorses night fevers Tmax 101.3 for the past few days with occasional dry cough. Denies any SOB, chest pain, sore throat, loss of smell/taste, runny nose, abd pain, nausea, vomiting, diarrhea OBJECTIVE: Vital Signs Period Temp Pulse Resp BP Sys/Cabezas Pulse Ox Last 24 Hr 97.7 F-99.0 F 92-102 16-19 117-139/64-83 92-96 GENERAL: AAOx3, in no acute distress HEENT: NCAT, PERRLA, EOMI, sclera anicteric, conjunctiva clear, oropharynx clear w/o exudates. MMM. NECK: Normal ROM, supple, no lymphadenopathy, JVD, or masses LUNGS: Inspiratory crackles heard at right lower lung base. No distress, speaks in full sentences. No increased work of breathing. HEART: RRR, normal S1 S2, no M/R/G, peripheral pulses 2+ and equal b/l ABDOMEN: Soft, non-tender, + BS. No guarding or rebound. No hepatomegaly or splenomegaly. peritoneal catheter, no erythema/drainage MSK: ROM WNL, NO CVA tenderness EXTREMITIES: Normal inspection. No peripheral edema. No clubbing or cyanosis. NEUROLOGICAL: CN II-XII intact. Normal speech, gait not observed, no focal sensorimotor deficits. PSYCH: Normal mood, normal affect. SKIN: Warm, Dry, normal turgor, no rashes or lesions noted, Right chest wall, old hemacath site Laboratory Results - last 24 hr 01/12/20 01/13/20 01/13/20 06:00 05:41 05:41 WBC 10.0 RBC 4.15 Hgb 11.9 Hct 37.0 MCV 89.1 MCH 28.8 MCHC 32.3 RDW 16.0 H Plt Count 311 MPV 8.8 Absolute Neuts (auto) 7.5 Neutrophils % 74.8 Lymphocytes % 14.4 D Monocytes % 8.5 Eosinophils % 1.6 D Basophils % 0.7 Nucleated RBC % 0 Sodium 132 L Potassium 3.6 Chloride 93 L Carbon Dioxide 26 Anion Gap 14 BUN 64.8 H Creatinine 10.8 H* Est GFR (CKD-EPI)AfAm 4.31 Est GFR (CKD-EPI)NonAf 3.72 Random Glucose 106 Calcium 8.8 Phosphorus 6.6 H Magnesium 0.8 L Total Bilirubin 0.3 AST 10 L ALT 23 Alkaline Phosphatase 99 Total Protein 7.6 Albumin 2.8 L COVID-19 ([facility]) Not detected Active Medications Generic Name Dose Route Start Last Admin Trade Name Freq PRN Reason Stop Dose Admin Acetaminophen 650 mg 01/12/20 08:41 01/13/20 12:07 Tylenol - PO 650 mg Q4H PRN Administration PAIN LEVEL 4 - 6 Atorvastatin Calcium 40 mg 01/12/20 22:00 01/12/20 21:21 Lipitor - PO 40 mg HS [facility] Administration Calcium Acetate 667 mg 01/12/20 12:00 01/13/20 12:51 Phoslo - PO 667 mg TIDCM [facility] Administration Carvedilol 25 mg 01/12/20 10:00 01/13/20 10:29 Coreg - PO 25 mg DAILY [facility] Administration Chlorpromazine HCl 25 mg 01/13/20 11:44 Thorazine - PO QID PRN NAUSEA Ceftriaxone Sodium 1 gm/ 50 mls @ 100 mls/hr 01/13/20 10:00 01/13/20 10:30 Dextrose IVPB 100 mls/hr DAILY [facility] Administration Protocol Azithromycin 250 mg/ Dextrose 250 mls @ 250 mls/hr 01/13/20 10:00 01/13/20 12:06 IVPB 250 mls/hr DAILY [facility] Administration Peritoneal Dialysis Solution 2,000 mls @ 4,000 mls/hr 01/12/20 16:45 01/13/20 11:55 Dianeal 2.5% IP 4,000 mls/hr Q6H [facility] Administration Protocol Polyethylene Glycol 17 gm 01/12/20 10:00 01/13/20 10:31 Miralax (For Daily Use) - PO Not Given DAILY [facility] Potassium Chloride 40 meq 01/13/20 22:00 K-Dur - PO BID [facility] Tramadol HCl 50 mg 01/12/20 08:40 01/13/20 10:27 Ultram - PO 50 mg Q6H PRN Administration PAIN LEVEL 6-10 ASSESSMENT/PLAN: 49 Y F with a PMH of ESRD, FSGS, hypertension, hyperlipidemia, Positive JOHANA antibody, presented with with right sided flank pain, low grade temperature, cough, CT chest revealed extensive b/l consolidation/atelectasis and small right pleural effusion, admitted for treatment of PNA #Sepsis 2/2 PNA - On admission WBC 14.0, P130, improved now - sputum cx, rsv, influenza pending - Urine Legionella, Pneumococcus Ag, COVID negative - will continue with Azithro 250mg QD and ceftriaxone 1gm QD #Hyponatremia - Likley due to fluid overload - Na 132 - Will continue to monitor post dialysis #Hypokalemia - 3.3, treated with K-Dur 40 meq x 2, improved to 3.6 - will continue to monitor and replete as needed #Hx of ESRD #Hx of FSGS - Nephro, Dr. owusu is following, recs appreciated intermittent PD with manual exchanges PD fluid cell count and culture pending Continue potassium chloride 40meq BID, titrate as needed to keep K > 3.5 - will continue with Phoslo # Hx of HTN - Continue home med, Coreg 25mg PO QD #Hx of HLD - Continue home med, Lipitor 40mg HS DVT ppx: - No chemical ppx: JOHANA, CKD - SCDs FEN - No standing fluids - Will continue to monitor electrolytes, keep K > 3.5 - Renal DT Dispo: Will continue to monitor in [place] Visit type - Emergency Visit Emergency Visit: Yes ED Registration Date: 01/12/20 Care time: The patient presented to the Emergency Department on the above date and was hospitalized for further evaluation of their emergent condition. - New Patient This patient is new to me today: No - Critical Care Critical Care patient: No - Discharge Referral Referred to [facility] Med P.C.: No ATTENDING PHYSICIAN STATEMENT I saw and evaluated the patient. I reviewed the resident's note and discussed the case with the resident. I agree with the resident's findings and plan as documented. SUBJECTIVE: OBJECTIVE: ASSESSMENT AND PLAN:
[2020-01-13 15:01] LABS: BF WBC & OTHER NUCLEATED CELLS 24 /mm3
[2020-01-13] MEDS: chlorproMAZINE HCL 25 MG TABLET PO PRN (15:20)
[2020-01-13 17:54] LABS: BODY FLUID MACROPHAGES 2 %; BODY FLUID MESOTHELIAL 6 %; BODY FLUID MONOCYTE 24 %
[2020-01-13] MEDS: ATORVASTATIN CA 40 MG TABLET (FP) PO SCH (21:15)
[2020-01-13] MEDS: POTASSIUM CHLORIDE TABS 20 MEQ TABLET.ER (FP) PO SCH (21:15)
[2020-01-13] MEDS ORDERED: CALCIUM ACETATE 667 MG CAPSULE (FP) PO ONE (23:22)
[2020-01-14] MEDS: PERITONEAL DIALYSIS 2.5% SOLN 2,000 ML IP SCH ×4 (00:40→17:26)
[2020-01-14] MEDS ORDERED: PT OWN MED DRAWER 7, Y5N ONE ×2 (02:18→16:49)
[2020-01-14] MEDS: chlorproMAZINE HCL 25 MG TABLET PO PRN ×3 (02:20→22:33)
[2020-01-14] MEDS: traMADol HCL 50 MG TABLET PO PRN ×3 (02:21→22:33)
[2020-01-14] MEDS: ACETAMINOPHEN 325 MG TABLET (FP) PO PRN (06:35)
[2020-01-14 06:40] LABS: BASO % 0.6 % (0-2.0); EOS % 3.6 % (0-4.5); HEMATOCRIT 31.2 % (32.4-45.2); HEMOGLOBIN 10.3 GM/dL (10.7-15.3); LYMPH % 21.6 % (8-40); MCH 29.4 pg (25.7-33.7); MCHC 33.1 g/dl (32.0-36.0); MEAN CELL VOLUME 88.9 fl (80-96); MEAN PLT VOLUME 8.4 fl (7.5-11.1); NEUT % 63.2 % (42.8-82.8); PLATELET COUNT 290 K/MM3 (134-434); RBC 3.51 M/mm3 (3.60-5.2); WHITE BLOOD COUNT 7.2 K/mm3 (4.0-10.0)
[2020-01-14 07:16] LABS: ALBUMIN 2.4 g/dl (3.4-5.0); BILIRUBIN,TOTAL 0.2 mg/dL (0.2-1); BLOOD UREA NITROGEN 64.1 mg/dL (7-18); CALCIUM 8.4 mg/dL (8.5-10.1); PHOSPHOROUS 5.7 mg/dL (2.5-4.9); TOT PROT 6.5 g/dl (6.4-8.2)
[2020-01-14 07:37] LABS: CREATININE 11.2 mg/dL (0.55-1.3)
[2020-01-14] MEDS: CALCIUM ACETATE 667 MG CAPSULE (FP) PO SCH ×3 (08:23→17:36)
[2020-01-14] MEDS ORDERED: cefTRIAXone SODIUM 1 GM VIAL ONE (09:58)
[2020-01-14] MEDS ORDERED: DEXTROSE 5%-WATER - 50 ML IVPB ONE (09:58)
[2020-01-14] MEDS: POTASSIUM CHLORIDE TABS 20 MEQ TABLET.ER (FP) PO SCH ×2 (10:08→22:00)
[2020-01-14] MEDS: POLYETHYLENE GLYCOL 3350 119 GM BTL PO SCH (10:09)
[2020-01-14] MEDS: CEFTRIAXONE 1 GM in DEXTROSE 5%-WATER - 50 ML IVPB SCH (10:21)
[2020-01-14] MEDS: CARVEDILOL 25 MG TABLET (FP) PO SCH (10:22)
[2020-01-14] MEDS: AZITHROMYCIN IVPB 250 MG in DEXTROSE 5%-WATER - 250 ML IVPB SCH (11:35)
--- NOTE | 2020-01-14 12:57 | PN ---
Teaching Attending Note Name of Resident: Luis Zepeda ATTENDING PHYSICIAN STATEMENT I saw and evaluated the patient. I reviewed the resident's note and discussed the case with the resident. I agree with the resident's findings and plan as documented. SUBJECTIVE: No fever or chills. earlier this am, had pleuritic pain in R flank, which made her anxious and became tachypnic and SOB. pain resolved and she is calm now. no abd pain, or SOB. R flank pain comes and goes few times a day . in general, she feels much better compared to admission OBJECTIVE: NAD, awake, alert, cooperative and pleasant. MMM. CV: RRR, no MRG Lungs: R sided crackles half way down. good air entry Abd: soft, NT, ND, nl BS, no CVA tenderness. a Pd catheter in abd wall with a celan dressing on insertion site. no erythema surrounding the dressing Skin: RU chest with a healing wound at site of an old HD cath . No skin erythema or discharge form wounds. EXt : R thigh circumference > L. no erythema , no tenderness . 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 1- S/p sepsis due to b.l PNA . clinically improved , R sided flank pain is likely pleuritic. - No leukocytosis or fever . no other source of infection , urine cx with low colony count , peritoneal fluid cx neg - cont Abx ( Ceftriaxone and azithro ) - legioneall and strep Ag neg 2- Elevated DD. likely due to sepsis. CTA neg for PE, but patient has increased R thigh circumference compared to L. will get US 3- ESRD: cot PD per renal 4- HTN: cont coreg 5- Suspected uterine abscess on CT. refer to her [employer]ISK [employer] DIRECTOR for US eval 6- Scds .
--- NOTE | 2020-01-14 14:26 | PN ---
Physical Exam: SUBJECTIVE: Patient seen and examined at beside, overnight intermittent sharp pleuritic flank pain that wakes her up from the sleep. O2 desat to 92% overnight and was placed on 2L NC. This morning she reports she feels a little better, no SOB, she feels anxious because this is the first time she has experienced this pain. OBJECTIVE: Vital Signs Period Temp Pulse Resp BP Sys/Cabezas Pulse Ox Last 24 Hr 98.0 F-98.7 F 90-101 18-20 122-154/68-88 92-95 GENERAL: AAOx3, in no acute distress HEENT: NCAT, PERRLA, EOMI, sclera anicteric, conjunctiva clear, oropharynx clear w/o exudates. MMM. NECK: Normal ROM, supple, no lymphadenopathy, JVD, or masses LUNGS: Inspiratory crackles heard at b/l lower lung drake. right>Left. No distress, speaks in full sentences. No increased work of breathing. HEART: RRR, normal S1 S2, no M/R/G, peripheral pulses 2+ and equal b/l ABDOMEN: Soft, non-tender, + BS. No guarding or rebound. No hepatomegaly or splenomegaly. peritoneal catheter, no erythema/drainage, clean dressing MSK: ROM WNL, NO CVA tenderness EXTREMITIES: Normal inspection. No peripheral edema. No clubbing or cyanosis. Right thigh circumference > Left, no visible erythema, non tender to palpation, No calf tenderness b/l NEUROLOGICAL: CN II-XII intact. Normal speech, gait not observed, no focal sensorimotor deficits. PSYCH: Normal mood, normal affect. SKIN: Warm, Dry, normal turgor, no rashes or lesions noted, Right chest wall, old hemacath site, healting Laboratory Results - last 24 hr 01/13/20 01/14/20 01/14/20 12:45 05:31 05:31 WBC 7.2 RBC 3.51 L Hgb 10.3 L Hct 31.2 L D MCV 88.9 MCH 29.4 MCHC 33.1 RDW 16.0 H Plt Count 290 MPV 8.4 Absolute Neuts (auto) 4.5 Neutrophils % 63.2 Lymphocytes % 21.6 D Monocytes % 11.0 H Eosinophils % 3.6 D Basophils % 0.6 Nucleated RBC % 0 Sodium 136 Potassium 4.0 Chloride 98 Carbon Dioxide 26 Anion Gap 12 BUN 64.1 H Creatinine 11.2 H* Est GFR (CKD-EPI)AfAm 4.13 Est GFR (CKD-EPI)NonAf 3.56 Random Glucose 91 Calcium 8.4 L Phosphorus 5.7 H Total Bilirubin 0.2 AST 16 ALT 28 Alkaline Phosphatase 84 Total Protein 6.5 Albumin 2.4 L Fluid Source Peritoneal Fluid WBC 24 Fluid RBC 296 Fluid Neutrophils 55 Fluid Lymphocytes 13 Pleural Monocytes 24 Pleural Macrophages 2 Pleural Mesothelial 6 Active Medications Generic Name Dose Route Start Last Admin Trade Name Freq PRN Reason Stop Dose Admin Acetaminophen 650 mg 01/12/20 08:41 01/14/20 06:35 Tylenol - PO 650 mg Q4H PRN Administration PAIN LEVEL 4 - 6 Atorvastatin Calcium 40 mg 01/12/20 22:00 01/13/20 21:15 Lipitor - PO 40 mg HS [facility] Administration Calcium Acetate 667 mg 01/12/20 12:00 01/14/20 12:59 Phoslo - PO 667 mg TIDCM [facility] Administration Carvedilol 25 mg 01/12/20 10:00 01/14/20 10:22 Coreg - PO Not Given DAILY [facility] Chlorpromazine HCl 25 mg 01/13/20 11:44 01/14/20 02:20 Thorazine - PO 25 mg QID PRN Administration NAUSEA Ceftriaxone Sodium 1 gm/ 50 mls @ 100 mls/hr 01/13/20 10:00 01/14/20 10:21 Dextrose IVPB 100 mls/hr DAILY [facility] Administration Protocol Azithromycin 250 mg/ Dextrose 250 mls @ 250 mls/hr 01/13/20 10:00 01/14/20 11:35 IVPB 250 mls/hr DAILY [facility] Administration Peritoneal Dialysis Solution 2,000 mls @ 4,000 mls/hr 01/12/20 16:45 01/14/20 13:30 Dianeal 2.5% IP 4,000 mls/hr Q6H [facility] Administration Protocol Polyethylene Glycol 17 gm 01/12/20 10:00 01/14/20 10:09 Miralax (For Daily Use) - PO Not Given DAILY [facility] Potassium Chloride 40 meq 01/13/20 22:00 01/14/20 10:08 K-Dur - PO 40 meq BID [facility] Administration Tramadol HCl 50 mg 01/12/20 08:40 01/14/20 02:21 Ultram - PO 50 mg Q6H PRN Administration PAIN LEVEL 6-10 ASSESSMENT/PLAN: 49 Y F with a PMH of ESRD, FSGS, hypertension, hyperlipidemia, Positive JOHANA antibody, presented with with right sided flank pain, low grade temperature, c ough, CT chest revealed extensive b/l consolidation/atelectasis and small right pleural effusion, admitted for treatment of sepsis 2/2 PNA #Sepsis 2/2 PNA - On admission WBC 14.0, P130, improved now - sputum cx, rsv, influenza pending - Urine Legionella, Pneumococcus Ag, COVID negative - will continue with Azithro 250mg QD and ceftriaxone 1gm QD - Trace LE, WBC 218, Bacteria 1090, Urine culture positive for Enterococcus Fecalis, but low colony count 10,000-20, 000 CFU - peritoneal fluid cx : no growth in 24 hrs #Elevated D-Dimer - Likley 2/2 to sepsis, CTA: no PE - However, Right thigh circumference > Left, No chemical dvt ppx (only SCDS and ambulation) due to JOHANA and ESRD - Will f/u with b/l US #Hx of ESRD #Hx of FSGS - Nephro, Dr. owusu is following, recs appreciated intermittent PD with manual exchanges PD fluid cell count: wnl and culture: negative Continue potassium chloride 40meq BID, titrate as needed to keep K > 3.5 - will continue with Phoslo # Hx of HTN - Continue home med, Coreg 25mg PO QD #Hx of HLD - Continue home med, Lipitor 40mg HS #Hyponatremia-resolved - Tina due to fluid overload - s/p PD, today 136 - Will continue to monitor #Hypokalemia-resolved - 3.3, treated with K-Dur 40 meq - Today 4.0 - will continue to monitor and replete as needed DVT ppx: - No chemical ppx: JOHANA, ESRD - SCDs FEN - No standing fluids - Will continue to monitor electrolytes, keep K > 3.5 - Renal DT Dispo: Will continue to monitor in [place] Visit type - Emergency Visit Emergency Visit: Yes ED Registration Date: 01/12/20 Care time: The patient presented to the Emergency Department on the above date and was hospitalized for further evaluation of their emergent condition. - New Patient This patient is new to me today: No - Critical Care Critical Care patient: No - Discharge Referral Referred to [facility] Med P.C.: No ATTENDING PHYSICIAN STATEMENT I saw and evaluated the patient. I reviewed the resident's note and discussed the case with the resident. I agree with the resident's findings and plan as documented. SUBJECTIVE: OBJECTIVE: ASSESSMENT AND PLAN:
--- NOTE | 2020-01-14 15:11 | PN ---
Progress Note, Physician History of Present Illness: Seen and examined at the bedside awake and alert still has intermittent right flank pain tolerating PD exchanges no abdominal pain - Current Medication List Current Medications: Active Medications Acetaminophen (Tylenol -) 650 mg PO Q4H PRN PRN Reason: PAIN LEVEL 4 - 6 Last Admin: 01/14/20 06:35 Dose: 650 mg Documented by: Atorvastatin Calcium (Lipitor -) 40 mg PO HS [facility] Last Admin: 01/13/20 21:15 Dose: 40 mg Documented by: Calcium Acetate (Phoslo -) 667 mg PO TIDCM [facility] Last Admin: 01/14/20 12:59 Dose: 667 mg Documented by: Carvedilol (Coreg -) 25 mg PO DAILY [facility] Last Admin: 01/14/20 10:22 Dose: Not Given Documented by: Chlorpromazine HCl (Thorazine -) 25 mg PO QID PRN PRN Reason: NAUSEA Last Admin: 01/14/20 02:20 Dose: 25 mg Documented by: Ceftriaxone Sodium 1 gm/ (Dextrose) 50 mls @ 100 mls/hr IVPB DAILY [facility]; Protocol Last Admin: 01/14/20 10:21 Dose: 100 mls/hr Documented by: Azithromycin 250 mg/ Dextrose 250 mls @ 250 mls/hr IVPB DAILY [facility] Last Admin: 01/14/20 11:35 Dose: 250 mls/hr Documented by: Peritoneal Dialysis Solution (Dianeal 2.5%) 2,000 mls @ 4,000 mls/hr IP Q6H [facility]; Protocol Last Admin: 01/14/20 13:30 Dose: 4,000 mls/hr Documented by: Peritoneal Dialysis Solution (Dianeal 4.25%) 3,000 mls @ 6,000 mls/hr IP ONCE ONE; Protocol Stop: 01/14/20 18:29 Polyethylene Glycol (Miralax (For Daily Use) -) 17 gm PO DAILY [facility] Last Admin: 01/14/20 10:09 Dose: Not Given Documented by: Potassium Chloride (K-Dur -) 40 meq PO BID [facility] Last Admin: 01/14/20 10:08 Dose: 40 meq Documented by: Tramadol HCl (Ultram -) 50 mg PO Q6H PRN PRN Reason: PAIN LEVEL 6-10 Last Admin: 01/14/20 02:21 Dose: 50 mg Documented by: - Objective Vital Signs: Vital Signs Temperature 98.0 F 01/14/20 14:00 Pulse Rate 91 H 01/14/20 14:00 Respiratory Rate 16 01/14/20 14:00 Blood Pressure 137/89 01/14/20 14:00 O2 Sat by Pulse Oximetry (%) 94 L 01/14/20 10:00 Constitutional: Yes: No Distress, Calm Neck: Yes: Supple Cardiovascular: Yes: Regular Rate and Rhythm Respiratory: Yes: Regular Gastrointestinal: Yes: Soft. No: Tenderness Extremities: No: Cyanosis Labs: CBC, BMP 01/14/20 05:31 01/14/20 05:31 INR, PTT INR 1.14 (0.83-1.09) H 01/12/20 00:50 Assessment/Plan 49 year old woman with history of ESRD, FSGS, hypertension, hyperlipidemia, Positive JOHANA antibody who presented with with right sided flank pain, low grade temperature, cough and found to have right middle/lower lobe pneumonia. 1. Community Acquired pneumonia 2. ESRD on PD 3. Hx of FSGS/CKD 4. Hypertension 5. Hyperlipidemia continue intermittent PD with manual exchanges will use 2.5% dextrose solution with 2L exchanges done every 6 hours. will use 4.25% bag x 1 this evening to improve UF PD cell count and culture w/o evidence of peritonitis pain control w/o NSAIDs Continue Coreg for hypertension Continue potassium chloride 40meq BID, titrate as needed to keep K > 3.5 Continue stool softeners to prevent constipation Rashad Adorno DO
[2020-01-14] MEDS ORDERED: PERITONEAL DIALYSIS 4.25% SOL 2,500 ML IP ONE (15:45)
[2020-01-14] MEDS ORDERED: PERITONEAL DIALYSIS 4.25% IP ONE (18:00)
--- NOTE | 2020-01-14 18:33 | PN ---
Progress Note, Physician History of Present Illness: OOB IN BED IN CHAIR STILL WITH PLEURITIC TYPE R CHEST PAIN OCCASIONAL COUGH NO C/O FEVER/ CHILLS WBC WNL BC (-) URINE C/S LOW COLONY COUNT ENTEROCOCCUS PERITONEAL FLUID C/S (-) - Current Medication List Current Medications: Active Medications Acetaminophen (Tylenol -) 650 mg PO Q4H PRN PRN Reason: PAIN LEVEL 4 - 6 Last Admin: 01/14/20 06:35 Dose: 650 mg Documented by: Atorvastatin Calcium (Lipitor -) 40 mg PO HS [facility] Last Admin: 01/13/20 21:15 Dose: 40 mg Documented by: Calcium Acetate (Phoslo -) 667 mg PO TIDCM [facility] Last Admin: 01/14/20 17:36 Dose: 667 mg Documented by: Carvedilol (Coreg -) 25 mg PO DAILY [facility] Last Admin: 01/14/20 10:22 Dose: Not Given Documented by: Chlorpromazine HCl (Thorazine -) 25 mg PO QID PRN PRN Reason: NAUSEA Last Admin: 01/14/20 16:57 Dose: 25 mg Documented by: Ceftriaxone Sodium 1 gm/ (Dextrose) 50 mls @ 100 mls/hr IVPB DAILY [facility]; Protocol Last Admin: 01/14/20 10:21 Dose: 100 mls/hr Documented by: Azithromycin 250 mg/ Dextrose 250 mls @ 250 mls/hr IVPB DAILY [facility] Last Admin: 01/14/20 11:35 Dose: 250 mls/hr Documented by: Peritoneal Dialysis Solution (Dianeal 2.5%) 2,000 mls @ 4,000 mls/hr IP Q6H [facility]; Protocol Last Admin: 01/14/20 17:26 Dose: Not Given Documented by: Polyethylene Glycol (Miralax (For Daily Use) -) 17 gm PO DAILY [facility] Last Admin: 01/14/20 10:09 Dose: Not Given Documented by: Potassium Chloride (K-Dur -) 40 meq PO BID [facility] Last Admin: 01/14/20 10:08 Dose: 40 meq Documented by: Tramadol HCl (Ultram -) 50 mg PO Q6H PRN PRN Reason: PAIN LEVEL 6-10 Last Admin: 01/14/20 16:56 Dose: 50 mg Documented by: - Objective Vital Signs: Vital Signs Temperature 98.2 F 01/14/20 18:00 Pulse Rate 104 H 01/14/20 18:00 Respiratory Rate 19 01/14/20 18:00 Blood Pressure 153/86 01/14/20 18:00 O2 Sat by Pulse Oximetry (%) 99 01/14/20 18:00 Constitutional: Yes: No Distress Cardiovascular: Yes: Regular Rate and Rhythm, S1, S2 Respiratory: Yes: CTA Bilaterally Gastrointestinal: Yes: Normal Bowel Sounds, Soft Edema: No Labs: CBC, BMP 01/14/20 05:31 01/14/20 05:31 INR, PTT INR 1.14 (0.83-1.09) H 01/12/20 00:50 Assessment/Plan PNEUMONIA ESRD ON PERITONEAL DIALYSIS + URINE C/S C/W CONTAMINATION LEUKOCYTOSIS RESOLVED CONTINUE EMPIRIC CEFTRIAXONE/ ZITHROMAX
[2020-01-14] MEDS ORDERED: PERITONEAL DIALYSIS 4.25% NR ONE (19:00)
[2020-01-14] MEDS: ATORVASTATIN CA 40 MG TABLET (FP) PO SCH (22:00)
[2020-01-15] MEDS ORDERED: ALBUTEROL SO4 2.5/IPRATROPIUM 0.5 INH SOL 3 ML VIAL.NEB. NEB ONE ×2 (00:03→06:27)
[2020-01-15 06:52] LABS: BASO % 0.7 % (0-2.0); EOS % 3.1 % (0-4.5); HEMATOCRIT 31.4 % (32.4-45.2); HEMOGLOBIN 10.2 GM/dL (10.7-15.3); LYMPH % 17.1 % (8-40); MCH 29.2 pg (25.7-33.7); MCHC 32.5 g/dl (32.0-36.0); MEAN CELL VOLUME 89.9 fl (80-96); MEAN PLT VOLUME 8.3 fl (7.5-11.1); MONO % 10.2 % (3.8-10.2); NEUT % 68.9 % (42.8-82.8); PLATELET COUNT 316 K/MM3 (134-434); RBC 3.49 M/mm3 (3.60-5.2); RDW 16.1 % (11.6-15.6); WHITE BLOOD COUNT 7.1 K/mm3 (4.0-10.0)
[2020-01-15 07:28] LABS: ALBUMIN 2.3 g/dl (3.4-5.0); BLOOD UREA NITROGEN 70.1 mg/dL (7-18); CALCIUM 8.3 mg/dL (8.5-10.1); MAGNESIUM 2.5 mg/dL (1.8-2.4); PHOSPHOROUS 6.9 mg/dL (2.5-4.9); POTASSIUM 4.2 mmol/L (3.5-5.1)
[2020-01-15 07:30] LABS: BILIRUBIN,TOTAL 0.2 mg/dL (0.2-1); TOT PROT 6.2 g/dl (6.4-8.2)
[2020-01-15 07:33] LABS: CREATININE 11.8 mg/dL (0.55-1.3)
[2020-01-15] MEDS: PERITONEAL DIALYSIS 2.5% NR SCH ×4 (07:51→18:02)
[2020-01-15] MEDS: CALCIUM ACETATE 667 MG CAPSULE (FP) PO SCH ×3 (07:53→17:16)
[2020-01-15] MEDS: POTASSIUM CHLORIDE TABS 20 MEQ TABLET.ER (FP) PO SCH ×2 (10:31→21:35)
[2020-01-15] MEDS: CEFTRIAXONE 1 GM in DEXTROSE 5%-WATER - 50 ML IVPB SCH (10:31)
[2020-01-15] MEDS: AZITHROMYCIN IVPB 250 MG in DEXTROSE 5%-WATER - 250 ML IVPB SCH (10:31)
[2020-01-15] MEDS ORDERED: PT OWN MED DRAWER 7, Y5N ONE ×2 (10:41→19:08)
[2020-01-15] MEDS: chlorproMAZINE HCL 25 MG TABLET PO PRN ×2 (10:46→19:10)
[2020-01-15] MEDS: traMADol HCL 50 MG TABLET PO PRN ×2 (10:49→19:09)
[2020-01-15] MEDS: CARVEDILOL 25 MG TABLET (FP) PO SCH (10:51)
[2020-01-15] MEDS: POLYETHYLENE GLYCOL 3350 119 GM BTL PO SCH (10:51)
[2020-01-15] MEDS ORDERED: PERITONEAL DIALYSIS 2.5% NR ONE (12:00)
[2020-01-15] MEDS ORDERED: AZITHROMYCIN 250 MG TABLET PO ONE (12:12)
--- NOTE | 2020-01-15 13:36 | PN ---
Progress Note, Physician History of Present Illness: Pt seen and examined at bedside. She denies fever or chills. She complains of fibrin in the dialysate. She denies abd pain. - Current Medication List Current Medications: Active Medications Acetaminophen (Tylenol -) 650 mg PO Q4H PRN PRN Reason: PAIN LEVEL 4 - 6 Last Admin: 01/14/20 06:35 Dose: 650 mg Documented by: Atorvastatin Calcium (Lipitor -) 40 mg PO HS [facility] Last Admin: 01/14/20 22:00 Dose: 40 mg Documented by: Calcium Acetate (Phoslo -) 667 mg PO TIDCM [facility] Last Admin: 01/15/20 11:59 Dose: 667 mg Documented by: Carvedilol (Coreg -) 25 mg PO DAILY [facility] Last Admin: 01/15/20 10:51 Dose: 25 mg Documented by: Chlorpromazine HCl (Thorazine -) 25 mg PO QID PRN PRN Reason: NAUSEA Last Admin: 01/15/20 10:46 Dose: 25 mg Documented by: Ceftriaxone Sodium 1 gm/ (Dextrose) 50 mls @ 100 mls/hr IVPB DAILY [facility]; Protocol Last Admin: 01/15/20 10:31 Dose: Not Given Documented by: Azithromycin 250 mg/ Dextrose 250 mls @ 250 mls/hr IVPB DAILY [facility] Last Admin: 01/15/20 10:31 Dose: Not Given Documented by: Peritoneal Dialysis (2.5% (Delfex) 2000ml) 1 each NR Q6H [facility] Last Admin: 01/15/20 11:44 Dose: Not Given Documented by: Polyethylene Glycol (Miralax (For Daily Use) -) 17 gm PO DAILY [facility] Last Admin: 01/15/20 10:51 Dose: Not Given Documented by: Potassium Chloride (K-Dur -) 40 meq PO BID [facility] Last Admin: 01/15/20 10:31 Dose: Not Given Documented by: Tramadol HCl (Ultram -) 50 mg PO Q6H PRN PRN Reason: PAIN LEVEL 6-10 Last Admin: 01/15/20 10:49 Dose: 50 mg Documented by: - Objective Vital Signs: Vital Signs Temperature 98.0 F 01/15/20 13:24 Pulse Rate 86 01/15/20 13:24 Respiratory Rate 16 01/15/20 13:24 Blood Pressure 117/78 01/15/20 13:24 O2 Sat by Pulse Oximetry (%) 98 01/15/20 13:24 Constitutional: Yes: Calm Eyes: Yes: Conjunctiva Clear HENT: Yes: Atraumatic Neck: Yes: Supple Cardiovascular: Yes: S1, S2 Respiratory: Yes: CTA Bilaterally Gastrointestinal: Yes: Soft Genitourinary: Yes: WNL Musculoskeletal: Yes: WNL Edema: No Integumentary: Yes: WNL Neurological: Yes: Oriented Psychiatric: Yes: Oriented Labs: CBC, BMP 01/15/20 05:47 01/15/20 05:47 INR, PTT INR 1.14 (0.83-1.09) H 01/12/20 00:50 Assessment/Plan Current Medications Generic Name Dose Route Start Last Admin Trade Name Freq PRN Reason Stop Dose Admin Acetaminophen 650 mg 01/12/20 08:41 01/14/20 06:35 Tylenol - PO 650 mg Q4H PRN Administration PAIN LEVEL 4 - 6 Atorvastatin Calcium 40 mg 01/12/20 22:00 01/14/20 22:00 Lipitor - PO 40 mg HS [facility] Administration Calcium Acetate 667 mg 01/12/20 12:00 01/15/20 11:59 Phoslo - PO 667 mg TIDCM [facility] Administration Carvedilol 25 mg 01/12/20 10:00 01/15/20 10:51 Coreg - PO 25 mg DAILY [facility] Administration Chlorpromazine HCl 25 mg 01/13/20 11:44 01/15/20 10:46 Thorazine - PO 25 mg QID PRN Administration NAUSEA Ceftriaxone Sodium 1 gm/ 50 mls @ 100 mls/hr 01/13/20 10:00 01/15/20 10:31 Dextrose IVPB Not Given DAILY [facility] Protocol Azithromycin 250 mg/ Dextrose 250 mls @ 250 mls/hr 01/13/20 10:00 01/15/20 10:31 IVPB Not Given DAILY [facility] Peritoneal Dialysis 1 each 01/15/20 00:00 01/15/20 11:44 2.5% (Delfex) 2000ml NR Not Given Q6H [facility] Polyethylene Glycol 17 gm 01/12/20 10:00 01/15/20 10:51 Miralax (For Daily Use) - PO Not Given DAILY [facility] Potassium Chloride 40 meq 01/13/20 22:00 01/15/20 10:31 K-Dur - PO Not Given BID [facility] Tramadol HCl 50 mg 01/15/20 10:17 01/15/20 10:49 Ultram - PO 50 mg Q6H PRN Administration PAIN LEVEL 6-10 1. ESRD on PD 2. PNA 3. Hx of FSGS 4. Hypertension 5. Hyperlipidemia 6. anemia 7. hypokalemia Plan - cont with pd - will add heparin to next bag - discussed plan with nurse and pt - pt follows with Dr Cook, will speak to her on Friday - abx per primary team - avoid nsaids - bp stable - avoid constipation
[2020-01-15] MEDS: ACETAMINOPHEN 325 MG TABLET (FP) PO PRN ×2 (15:03→21:39)
[2020-01-15] MEDS ORDERED: CEFPODOXIME PROXETIL 100 MG TABLET PO ONE (16:36)
--- NOTE | 2020-01-15 16:48 | PN ---
Teaching Attending Note Name of Resident: Luis Zepeda ATTENDING PHYSICIAN STATEMENT I saw and evaluated the patient. I reviewed the resident's note and discussed the case with the resident. I agree with the resident's findings and plan as documented. SUBJECTIVE: No fever or chills . no ESCAMILLA . had an episode of R sided chest pain earlier today but it resolved. no SOB. No abd pain OBJECTIVE: NAD, awake, alert. CV: RRR, no MRG. Lungs: R sided crackles half way down. good air entry Abd: soft, NT, ND, nl BS, no CVA tenderness. a Pd catheter in abd wall with clean intact skin with no erythema or discharge . Skin: RU chest with a healing wound at site of an old HD cath ( scabbed ). No skin erythema or discharge form wounds. EXT: No edema on legs. no erythema. 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 1- S/p sepsis due to b.l PNA. clinically improved , removed her IV line and declined IV Abx. No signs of sepsis any more , and SAt O2 95% on RA. - will get Cxray t o rule out pneumothorax a s a cause of her pleuritic cp. expect some effusion due to PD. - switch to po Abx , vantin and last dose of azithro today - finish 10 day course of Abx - if cxray does not show PTx , then she can cont Abx at home 2- Elevated DD. likely due to sepsis . US neg for DVTs. CTA neg for PE. No further investigation s 3- ESRD: d/w dr. Christensen, cont PD at home as per pre-admission routine 4- HTN: cont coreg 5- Suspected uterine fibroids on CT. refer to her [facility] for US eval will Dc home today if Xray is neg for PTx
--- NOTE | 2020-01-15 19:01 | PN ---
Physical Exam: SUBJECTIVE: Patient seen and examined at beside, c/o SOB and wheezing overnight, received duoneb treatments x 2. Feels better in the morning. No new complaints OBJECTIVE: Vital Signs Period Temp Pulse Resp BP Sys/Cabezas Pulse Ox Last 24 Hr 97.9 F-98.8 F 86-115 16-20 117-149/71-86 95-98 GENERAL: AAOx3, in no acute distress HEENT: NCAT, PERRLA, EOMI, sclera anicteric, conjunctiva clear, oropharynx clear w/o exudates. MMM. NECK: Normal ROM, supple, no lymphadenopathy, JVD, or masses LUNGS: Inspiratory crackles heard at b/l lower lung drake. right>Left. No distress, speaks in full sentences. No increased work of breathing. HEART: RRR, normal S1 S2, no M/R/G, peripheral pulses 2+ and equal b/l ABDOMEN: Soft, non-tender, + BS. No guarding or rebound. No hepatomegaly or splenomegaly. peritoneal catheter, no erythema/drainage, clean dressing MSK: ROM WNL, NO CVA tenderness EXTREMITIES: Normal inspection. No peripheral edema. No clubbing or cyanosis. Right thigh circumference > Left, no visible erythema, non tender to palpation, No calf tenderness b/l NEUROLOGICAL: CN II-XII intact. Normal speech, gait not observed, no focal sensorimotor deficits. PSYCH: Normal mood, normal affect. SKIN: Warm, Dry, normal turgor, no rashes or lesions noted, Right chest wall, old hemacath site, healting Laboratory Results - last 24 hr 01/15/20 01/15/20 05:47 05:47 WBC 7.1 RBC 3.49 L Hgb 10.2 L Hct 31.4 L MCV 89.9 MCH 29.2 MCHC 32.5 RDW 16.1 H Plt Count 316 MPV 8.3 Absolute Neuts (auto) 4.9 Neutrophils % 68.9 Lymphocytes % 17.1 D Monocytes % 10.2 Eosinophils % 3.1 Basophils % 0.7 Nucleated RBC % 0 Sodium 137 Potassium 4.2 Chloride 101 Carbon Dioxide 25 Anion Gap 11 BUN 70.1 H Creatinine 11.8 H* Est GFR (CKD-EPI)AfAm 3.88 Est GFR (CKD-EPI)NonAf 3.34 Random Glucose 93 Calcium 8.3 L Phosphorus 6.9 H Magnesium 2.5 H Total Bilirubin 0.2 AST 14 L ALT 26 Alkaline Phosphatase 77 Total Protein 6.2 L Albumin 2.3 L Active Medications Generic Name Dose Route Start Last Admin Trade Name Freq PRN Reason Stop Dose Admin Acetaminophen 650 mg 01/12/20 08:41 01/15/20 15:03 Tylenol - PO 650 mg Q4H PRN Administration PAIN LEVEL 4 - 6 Atorvastatin Calcium 40 mg 01/12/20 22:00 01/14/20 22:00 Lipitor - PO 40 mg HS [facility] Administration Calcium Acetate 667 mg 01/12/20 12:00 01/15/20 17:16 Phoslo - PO 667 mg TIDCM [facility] Administration Carvedilol 25 mg 01/12/20 10:00 01/15/20 10:51 Coreg - PO 25 mg DAILY [facility] Administration Cefpodoxime Proxetil 200 mg 01/16/20 06:00 Vantin - PO Q12H [facility] Chlorpromazine HCl 25 mg 01/13/20 11:44 01/15/20 10:46 Thorazine - PO 25 mg QID PRN Administration NAUSEA Peritoneal Dialysis 1 each 01/15/20 00:00 01/15/20 18:02 2.5% (Delfex) 2000ml NR 1 each Q6H [facility] Administration Polyethylene Glycol 17 gm 01/12/20 10:00 01/15/20 10:51 Miralax (For Daily Use) - PO Not Given DAILY [facility] Potassium Chloride 40 meq 01/13/20 22:00 01/15/20 10:31 K-Dur - PO Not Given BID [facility] Tramadol HCl 50 mg 01/15/20 10:17 01/15/20 10:49 Ultram - PO 50 mg Q6H PRN Administration PAIN LEVEL 6-10 ASSESSMENT/PLAN: 49 Y F with a PMH of ESRD, FSGS, hypertension, hyperlipidemia, Positive JOHANA antibody, presented with with right sided flank pain, low grade temperature, cough, CT chest revealed extensive b/l consolidation/atelectasis and small right pleural effusion, admitted for treatment of sepsis 2/2 PNA #Sepsis 2/2 PNA - On admission WBC 14.0, P130, clinically improved now - sputum cx, rsv, influenza pending - Urine Legionella, Pneumococcus Ag, COVID negative - removed her IV lines and refused antibiotics, switched to Oral, Ordered one dose of Azithro 250mg PO and Vantin 200 mg PO Q12h - Trace LE, WBC 218, Bacteria 1090, Urine culture positive for Enterococcus Fecalis, but low colony count 10,000-20, 000 CFU - peritoneal fluid cx : no growth in 24 hrs - Ordered CXR to r/o hydrothorax, Pending final read #Elevated D-Dimer - Likley 2/2 to sepsis, CTA: no PE - However, Right thigh circumference > Left, No chemical dvt ppx (only SCDS and ambulation) due to JOHANA and ESRD - U/S: No DVT #Hx of ESRD #Hx of FSGS - Nephro, Dr. Maya is following, recs appreciated intermittent PD with manual exchanges - will continue with Phoslo # Hx of HTN - Continue home med, Coreg 25mg PO QD #Hx of HLD - Continue home med, Lipitor 40mg HS #Hyponatremia-resolved - Tina due to fluid overload - Will continue to monitor #Hypokalemia-resolved - 3.3, treated with K-Dur 40 meq - will continue to monitor and replete as needed DVT ppx: - No chemical ppx: JOHANA, ESRD - SCDs FEN - No standing fluids - Will continue to monitor electrolytes, keep K > 3.5 - Renal DT Dispo: Will continue to monitor in [place] Visit type - Emergency Visit Emergency Visit: Yes ED Registration Date: 01/12/20 Care time: The patient presented to the Emergency Department on the above date and was hospitalized for further evaluation of their emergent condition. - New Patient This patient is new to me today: No - Critical Care Critical Care patient: No - Discharge Referral Referred to [facility] Med P.C.: No ATTENDING PHYSICIAN STATEMENT I saw and evaluated the patient. I reviewed the resident's note and discussed the case with the resident. I agree with the resident's findings and plan as documented. SUBJECTIVE: OBJECTIVE: ASSESSMENT AND PLAN:
[2020-01-15] MEDS: ATORVASTATIN CA 40 MG TABLET (FP) PO SCH (21:35)
[2020-01-16] MEDS: PERITONEAL DIALYSIS 2.5% NR SCH ×4 (00:56→18:45)
[2020-01-16] MEDS ORDERED: ALBUTEROL SO4 2.5/IPRATROPIUM 0.5 INH SOL 3 ML VIAL.NEB. NEB ONE (01:54)
[2020-01-16] MEDS ORDERED: PT OWN MED DRAWER 7, Y5N ONE ×3 (05:11→17:11)
[2020-01-16] MEDS: ACETAMINOPHEN 325 MG TABLET (FP) PO PRN (05:16)
[2020-01-16] MEDS: chlorproMAZINE HCL 25 MG TABLET PO PRN ×3 (05:17→17:11)
[2020-01-16] MEDS: CEFPODOXIME PROXETIL 200 MG TABLET [NF] PO SCH ×2 (05:17→17:11)
[2020-01-16 07:05] LABS: EOS % 3.2 % (0-4.5); HEMOGLOBIN 11.8 GM/dL (10.7-15.3); LYMPH % 21.7 % (8-40); MCH 29.1 pg (25.7-33.7); MCHC 32.7 g/dl (32.0-36.0); MEAN CELL VOLUME 89.2 fl (80-96); MONO % 7.8 % (3.8-10.2); NEUT % 66.3 % (42.8-82.8); PLATELET COUNT 367 K/MM3 (134-434); RBC 4.04 M/mm3 (3.60-5.2); RDW 16.1 % (11.6-15.6); WHITE BLOOD COUNT 6.3 K/mm3 (4.0-10.0)
[2020-01-16 07:34] LABS: ALBUMIN 2.5 g/dl (3.4-5.0); BILIRUBIN,TOTAL 0.2 mg/dL (0.2-1); BLOOD UREA NITROGEN 63.5 mg/dL (7-18); CALCIUM 8.8 mg/dL (8.5-10.1); MAGNESIUM 2.4 mg/dL (1.8-2.4); PHOSPHOROUS 6.6 mg/dL (2.5-4.9); POTASSIUM 4.1 mmol/L (3.5-5.1); TOT PROT 6.9 g/dl (6.4-8.2)
[2020-01-16 07:36] LABS: CREATININE 11.5 mg/dL (0.55-1.3)
[2020-01-16] MEDS: CALCIUM ACETATE 667 MG CAPSULE (FP) PO SCH ×3 (08:08→16:54)
[2020-01-16] MEDS: POLYETHYLENE GLYCOL 3350 119 GM BTL PO SCH (09:09)
[2020-01-16] MEDS: POTASSIUM CHLORIDE TABS 20 MEQ TABLET.ER (FP) PO SCH (09:09)
[2020-01-16] MEDS: CARVEDILOL 25 MG TABLET (FP) PO SCH (09:54)
--- NOTE | 2020-01-16 13:48 | PN ---
Progress Note, Physician History of Present Illness: Pt seen and examined at bedside. She is alert and awake. She is tolerating PD. - Current Medication List Current Medications: Active Medications Acetaminophen (Tylenol -) 650 mg PO Q4H PRN PRN Reason: PAIN LEVEL 4 - 6 Last Admin: 01/16/20 05:16 Dose: 650 mg Documented by: Atorvastatin Calcium (Lipitor -) 40 mg PO HS [facility] Last Admin: 01/15/20 21:35 Dose: 40 mg Documented by: Calcium Acetate (Phoslo -) 667 mg PO TIDCM [facility] Last Admin: 01/16/20 11:54 Dose: 667 mg Documented by: Carvedilol (Coreg -) 25 mg PO DAILY [facility] Last Admin: 01/16/20 09:54 Dose: 25 mg Documented by: Cefpodoxime Proxetil (Vantin -) 200 mg PO Q12H [facility] Last Admin: 01/16/20 05:17 Dose: 200 mg Documented by: Chlorpromazine HCl (Thorazine -) 25 mg PO QID PRN PRN Reason: NAUSEA Last Admin: 01/16/20 11:47 Dose: 25 mg Documented by: Peritoneal Dialysis (2.5% (Delfex) 2000ml) 1 each NR Q6H [facility] Last Admin: 01/16/20 11:54 Dose: 1 each Documented by: Polyethylene Glycol (Miralax (For Daily Use) -) 17 gm PO DAILY [facility] Last Admin: 01/16/20 09:09 Dose: Not Given Documented by: Potassium Chloride (K-Dur -) 40 meq PO BID [facility] Last Admin: 01/16/20 09:09 Dose: Not Given Documented by: Tramadol HCl (Ultram -) 50 mg PO Q6H PRN PRN Reason: PAIN LEVEL 6-10 Last Admin: 01/15/20 19:09 Dose: 50 mg Documented by: - Objective Vital Signs: Vital Signs Temperature 98.0 F 01/16/20 10:00 Pulse Rate 95 H 01/16/20 10:00 Respiratory Rate 16 01/16/20 10:00 Blood Pressure 129/79 01/16/20 10:00 O2 Sat by Pulse Oximetry (%) 97 01/16/20 10:00 Constitutional: Yes: Calm Eyes: Yes: Conjunctiva Clear HENT: Yes: Atraumatic Neck: Yes: Supple Cardiovascular: Yes: S1, S2 Respiratory: Yes: CTA Bilaterally Gastrointestinal: Yes: Normal Bowel Sounds, Soft Genitourinary: Yes: WNL Musculoskeletal: Yes: WNL Edema: No Integumentary: Yes: WNL Neurological: Yes: Oriented Psychiatric: Yes: Oriented Labs: CBC, BMP 01/16/20 05:34 01/16/20 05:34 INR, PTT INR 1.14 (0.83-1.09) H 01/12/20 00:50 Assessment/Plan Current Medications Generic Name Dose Route Start Last Admin Trade Name Freq PRN Reason Stop Dose Admin Acetaminophen 650 mg 01/12/20 08:41 01/16/20 05:16 Tylenol - PO 650 mg Q4H PRN Administration PAIN LEVEL 4 - 6 Atorvastatin Calcium 40 mg 01/12/20 22:00 01/15/20 21:35 Lipitor - PO 40 mg HS [facility] Administration Calcium Acetate 667 mg 01/12/20 12:00 01/16/20 11:54 Phoslo - PO 667 mg TIDCM [facility] Administration Carvedilol 25 mg 01/12/20 10:00 01/16/20 09:54 Coreg - PO 25 mg DAILY [facility] Administration Cefpodoxime Proxetil 200 mg 01/16/20 06:00 01/16/20 05:17 Vantin - PO 200 mg Q12H [facility] Administration Chlorpromazine HCl 25 mg 01/13/20 11:44 01/16/20 11:47 Thorazine - PO 25 mg QID PRN Administration NAUSEA Peritoneal Dialysis 1 each 01/15/20 00:00 01/16/20 11:54 2.5% (Delfex) 2000ml NR 1 each Q6H [facility] Administration Polyethylene Glycol 17 gm 01/12/20 10:00 01/16/20 09:09 Miralax (For Daily Use) - PO Not Given DAILY [facility] Potassium Chloride 40 meq 01/13/20 22:00 01/16/20 09:09 K-Dur - PO Not Given BID [facility] Tramadol HCl 50 mg 01/15/20 10:17 01/15/20 19:09 Ultram - PO 50 mg Q6H PRN Administration PAIN LEVEL 6-10 1. ESRD on PD 2. PNA 3. Hx of FSGS 4. Hypertension 5. Hyperlipidemia 6. anemia 7. hypokalemia Plan - cont PD - pt dies get heparin in PD fluids as outpt despite allergy, called and confirmed yesterday - pt will see Dr Cook this week - pt not taking potassium supplements and her potassium is stable - cont renal diet - dialysis is clear and there is no fibrin today - pt to be discharged today - avoid nsaids - avoid constipation Dr Christensen
--- NOTE | 2020-01-16 13:59 | PN ---
Progress Note (short form) - Note Progress Note: Subjective: no fever or chills . no pain in abd , no SOB at time of interview. felt little SOB when walked. no CP . nausea + Objective: Vital Signs: Last Vital Signs Temp Pulse Resp BP Pulse Ox 98.0 F 95 H 16 129/79 97 01/16/20 10:00 01/16/20 10:00 01/16/20 10:00 01/16/20 10:00 01/16/20 10:00 Laboratory Results - last 24 hr 01/16/20 01/16/20 05:34 05:34 WBC 6.3 RBC 4.04 Hgb 11.8 Hct 36.0 MCV 89.2 MCH 29.1 MCHC 32.7 RDW 16.1 H Plt Count 367 MPV 8.0 Absolute Neuts (auto) 4.2 Neutrophils % 66.3 Lymphocytes % 21.7 D Monocytes % 7.8 Eosinophils % 3.2 Basophils % 1.0 Nucleated RBC % 0 Sodium 135 L Potassium 4.1 Chloride 98 Carbon Dioxide 25 Anion Gap 12 BUN 63.5 H Creatinine 11.5 H* Est GFR (CKD-EPI)AfAm 4.00 Est GFR (CKD-EPI)NonAf 3.45 Random Glucose 93 Calcium 8.8 Phosphorus 6.6 H Magnesium 2.4 Total Bilirubin 0.2 AST 16 ALT 32 Alkaline Phosphatase 88 Total Protein 6.9 Albumin 2.5 L Physical Exam: getting peritoneal dialysis NAD, awake, alert. CV: RRR, no MRG. Lungs: minimal crackles in R base. good air entry Skin: RU chest with a healing wound at site of an old HD cath ( scabbed ). No skin erythema or discharge form wounds. EXT: No edema on legs. no erythema. 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 1- S/p sepsis due to b.l PNA. clinically improved , 2- Elevated D dimer 3- HTN 4- ESRD plan : - cont po abx - cxray with no pneumothorax. pleural effusion is expected with PD - has been refusing K-dur will not continue at home . K nl - explained that ANDERSON is expected while recovering form PNA - coreg BID - cont Peritoneal dialysis , will follow up with her carton filling machine operator - f/u with EMAIL DEVELOPER for TVUS for suspected fibroids - nausea is likely due to Abx, and tramadol use . She was ready for dc yesterday, but decided to leave today as she did not have a ride. Visit type - Emergency Visit Emergency Visit: Yes ED Registration Date: 01/12/20 Care time: The patient presented to the Emergency Department on the above date and was hospitalized for further evaluation of their emergent condition. - New Patient This patient is new to me today: No - Critical Care Critical Care patient: No
[2020-01-16] MEDS ORDERED: MECLIZINE HCL 12.5 MG TABLET PO ONE (17:55)
[2020-01-16 19:06] VITALS: BP 115/75; PULSE 89; TEMP 97.8
--- NOTE | 2020-01-17 16:02 | DS ---
Physical Exam: SUBJECTIVE: As per Dr. Morris' note OBJECTIVE: Vital Signs Period Temp Pulse Resp BP Sys/Cabezas Pulse Ox Last 24 Hr 97.8 F 89 17 115/75 98 PHYSICAL EXAM : As per Dr. Morris' note LABS: As per Dr. Morris' note HOSPITAL COURSE: Date of Admission:01/12/20 49 Y F with a PMH of ESRD, FSGS, hypertension, hyperlipidemia, Positive JOHANA antibody, presented with with right sided flank pain, low grade temperature, cough, CT chest revealed extensive b/l consolidation/atelectasis and small right pleural effusion, admitted for treatment of sepsis 2/2 PNA. On admission WBC 14.0, P130, clinically improved now. Urine Legionella, Pneumococcus Ag, COVID negative. She was treated with IV antibiotics, she removed her IV lines and refused antibiotics, switched to Oral Azithro 250mg PO once and Vantin 200 mg PO Q12h. Ua revealed Trace LE, WBC 218, Bacteria 1090, Urine culture positive for Enterococcus Fecalis, but low colony count 10,000-20, 000 CFU. peritoneal fluid cx : no growth in 24 hrs Labs revealed Elevated D-Dimer, likley 2/2 to sepsis, CTA: no PE. U/S: No DVT Patient was clinically stable for discharge and discharged her with the following instructions, referrals and prescriptions Date of Discharge: 01/17/20 Minutes to complete discharge: 36 Discharge Summary Problems reviewed: Yes Reason For Visit: DIALYSIS PATIENT, PNEUMONIA Condition: Improved - Instructions Diet, Activity, Other Instructions: YOUR VISIT You came to the hospital because you were experiencing right flank pain, sob, and dry cough. Imaging(CT chest) showed evidence for bilateral pneumonia(lung infection). You were admitted to the hospital for care of these symptoms. You were treated with IV antibiotics and will give you 5 more days of oral antibiotics. You are now stable and may return home. You continued to receive intermittent peritoneal dialysis while you were admitted to the hospital, we did not find any evidence for a infection in the peritoneal fluids analysis. You will need to schedule an appointment with your biomathematician within 1 week to discuss the hospital course and further care regarding your peritoneal dialysis. continue your peritoneal dialysis as per your routine at home. dialysis catheter care as per pre-admission routine. make sure skin is always dry and clean around catheter site, and you can cover with clean dry gazue that you change daily CT imaging revealed questionable findings in your uterus, please see your soda flaker for further evaluation, as you have fibroids and need Ultra sound evaluation MEDICATIONS Please continue to take your home medications as prescribed. You have *NEW* medication. Please START taking Vantin 200 mg two times a day for he next 5 days to complete your antibiotic treatment Please START taking Tramadol 50mg as needed for 2 days. You can take up to three times a day if needed Please START taking Zofran 4mg daily as needed for nausea. if nausea persists , please consult with your doctor take coreg twice a day instead of once a day for your blood pressure ADDITIONAL CARE Please make an appointment to see your primary care provider within 1 week from today to discuss hospital course and to repeat blood works Please make an appointment to see your biomathematician Dr. Cook. within 1 week from today for further management of your peritoneal dialysis Please make an appointment to see your MEDICAL ANTHROPOLOGIST, within 1-2 weeks from today to discuss the CT findings during your hospital course. if you do not have one, we have provided you with a referral, Dr. Douglas ADDITIONAL INFORMATION Please call 911 or come directly to the emergency department if you experience recurrence of the symptoms that brought you to the hospital, unusual headache, vision change, shortness of breath, chest pain, numbness, tingling, loss of alertness/awareness, loss of function, unusual bleeding or any alarming symptoms. Referrals: Francois Cook MD [Non Staff, Medical] - Zana Douglas MD [Staff Physician] - Disposition: HOME - Home Medications Comprehensive Discharge Medication List: Ambulatory Orders Atorvastatin Ca [Lipitor] 40 mg PO HS 05/16/15 Ferric Citrate [Auryxia] 210 mg PO TID 01/12/20 Multivitamin [One-Daily Multi-Vitamin] 0 each PO DAILY 01/12/20 Carvedilol [Coreg -] 25 mg PO BID tablet 01/15/20 Cefpodoxime Proxetil [Vantin -] 200 mg PO Q12H #10 tablet 01/15/20 Ondansetron HCl [Zofran] 4 mg PO DAILY PRN #4 tablet 01/15/20 Meclizine HCl 12.5 mg PO HS PRN #3 tablet 01/16/20 Tramadol HCl 50 mg PO Q8H PRN #6 tablet MDD three tabs 01/16/20 This patient is new to me today: No Emergency Visit: Yes ED Registration Date: 01/12/20 Care time: The patient presented to the Emergency Department on the above date and was hospitalized for further evaluation of their emergent condition. Critical Care patient: No - Discharge Referral Referred to [facility] Med P.C.: No ATTENDING PHYSICIAN STATEMENT I saw and evaluated the patient. I reviewed the resident's note and discussed the case with the resident. I agree with the resident's findings and plan as documented. SUBJECTIVE: OBJECTIVE: ASSESSMENT AND PLAN:
== END 2020-01-16 20:38 | disposition home or self-care (01) | DRG 871 ==
LOC: JER 23:04 → JERBED 01-12 04:45 → J4S 01-12 10:02
PROVIDERS: ADMIT Internal Medicine; ATTEND Internal Medicine
PROC: 3E1M39Z Irrigation of Peritoneal Cavity using Dialysate, Percutaneous Approach (ICD-10-PCS; principal; 2020-01-12)
DX: A41.9 Sepsis, unspecified organism (principal); J18.9 Pneumonia, unspecified organism; N18.6 End stage renal disease; I12.0 Hypertensive chronic kidney disease with stage 5 chronic kidney disease or end stage renal disease; J98.11 Atelectasis; N39.0 Urinary tract infection, site not specified; E87.1 Hypo-osmolality and hyponatremia; J90 Pleural effusion, not elsewhere classified; I10 Essential (primary) hypertension; E78.5 Hyperlipidemia, unspecified; F32.9 Major depressive disorder, single episode, unspecified; R10.9 Unspecified abdominal pain; E87.6 Hypokalemia; D64.9 Anemia, unspecified; Z99.2 Dependence on renal dialysis
CPT/HCPCS: 36415; 71045-TC-FY; 71046-TC-FY; 71275-TC; 74176-TC; 80053; 81003; 82962; 83605; 83690; 83735; 84100; 84484; 84703; 85025; 85379; 85610; 85730; 87040; 87070; 87075; 87086; 87186; 87205; 87899; 93005; 93010; 93970-TC; 94010; 94640; 99285-25; J0131; U0003

== ENCOUNTER 2021-11-03 19:44 | Inpatient (IN) | payer BC, OTHER ==
[2021-11-03] MEDS ORDERED: ACETAMINOPHEN 500 MG TABLET (FP) PO ONE (21:04)
[2021-11-03] MEDS ORDERED: ACETAMINOPHEN 325 MG TABLET (FP) ONE (21:19)
[2021-11-03] MEDS ORDERED: ONDANSETRON 4 MG TABLET PO ONE (21:30)
[2021-11-03 23:25] LABS: HEMOGLOBIN 9.4 GM/dL (10.7-15.3); MCH 28.3 pg (25.7-33.7); MCHC 32.6 g/dl (32.0-36.0); MEAN CELL VOLUME 86.7 fl (80-96); MEAN PLT VOLUME 8.2 fl (7.5-11.1); PLATELET COUNT 333 10^3/uL (134-434); RBC 3.34 M/mm3 (3.60-5.2); RDW 12.7 % (11.6-15.6); WHITE BLOOD COUNT 20.1 K/mm3 (4.0-10.0)
[2021-11-03 23:27] LABS: URINE APPEARANCE CLEAR; URINE BILIRUBIN NEGATIVE (NEGATIVE); URINE COLOR YELLOW; URINE GLUCOSE (UA) NEGATIVE (NEGATIVE); URINE KETONE NEGATIVE (NEGATIVE); URINE LEUK ESTERASE TRACE (NEGATIVE); URINE NITRITE NEGATIVE (NEGATIVE); URINE PROTEIN 2+ (NEGATIVE); URINE UROBILINOGEN 0.2 mg/dL (0.2-1.0)
[2021-11-03 23:34] LABS: INR 1.13 (0.83-1.09)
[2021-11-03 23:36] LABS: ACTIVATED PTT 29.3 SECONDS (25.2-36.5)
[2021-11-03 23:45] LABS: CHLORIDE 95 mmol/L (98-107); SODIUM 132 mmol/L (136-145)
[2021-11-03 23:47] LABS: ALBUMIN 2.6 g/dl (3.4-5.0); ANION GAP 12 MMOL/L (8-16); CALCIUM 8.7 mg/dL (8.5-10.1); CO2 26 mmol/L (21-32); GLUCOSE,RANDOM 90 mg/dL (74-106); LIPASE 88 U/L (73-393); MAGNESIUM 1.9 mg/dL (1.8-2.4)
[2021-11-03 23:48] LABS: BLOOD UREA NITROGEN 66.1 mg/dL (7-18)
[2021-11-03 23:50] LABS: PHOSPHOROUS 4.7 mg/dL (2.5-4.9); SGOT/AST 14 U/L (15-37); SGPT/ALT 17 U/L (13-61)
[2021-11-03 23:52] LABS: BILIRUBIN,TOTAL 0.4 mg/dL (0.2-1); TOT PROT 6.2 g/dl (6.4-8.2)
[2021-11-03 23:53] LABS: ALK PHOS 66 U/L (45-117)
[2021-11-03] MEDS ORDERED: VANCOMYCIN 1,000 MG in DEXTROSE 5%-WATER - 250 ML IP ONE (23:56)
[2021-11-04 00:01] LABS: CREATININE 13.9 mg/dL (0.55-1.3)
[2021-11-04 00:14] LABS: ANISOCYTOSIS 1+; MACROCYTOSIS 0
[2021-11-04 00:54] LABS: BF WBC & OTHER NUCLEATED CELLS 4037 /mm3
[2021-11-04] MEDS ORDERED: ONDANSETRON 4 MG TABLET PO ONE (01:08)
[2021-11-04] MEDS ORDERED: morphine SULFATE 4 MG/ML VIAL IVPUSH ONE (01:08)
[2021-11-04] MEDS ORDERED: POLYETHYLENE GLYCOL (HEALTHYLAX) 3350 17 GM PACKET PO ONE (01:09)
[2021-11-04] MEDS ORDERED: CEFEPIME 2 GM/100 ML BAG IVPB ONE (02:39)
[2021-11-04] MEDS ORDERED: POLYETHYLENE GLYCOL (HEALTHYLAX) 3350 17 GM PACKET ONE ×2 (02:39→12:57)
[2021-11-04] MEDS ORDERED: ONDANSETRON *ODT* 4 MG TABLET ONE (02:39)
[2021-11-04] MEDS ORDERED: morphine SULFATE 4 MG/ML VIAL ONE (02:39)
[2021-11-04] MEDS ORDERED: CEFEPIME HCL/D5W 2 GM/50 ML BAG IVPB ONE (03:01)
[2021-11-04] MEDS: CEFEPIME HCL/D5W 2 GM/50 ML BAG IVPB ONE ×2 (03:02→03:03)
[2021-11-04] MEDS ORDERED: ACETAMINOPHEN 1000 MG/100 ML BAG IVPB ONE (03:09)
[2021-11-04 03:23] LABS: EPI CELLS 39.4 /uL (0-25.1); HYALINE CASTS 0.87 /uL (0-3.1); URINE BACTERIA 713.2 /uL (0-1359); URINE RBC 4.3 /uL (0-23.9); URINE WBC 38.1 /uL (0-25.8); YEAST NONE SEEN (NEGATIVE)
[2021-11-04] MEDS ORDERED: VANCOMYCIN/WATER FOR INJ (PEG) 1,000 MG/200 ML BAG IVPB ONE ×2 (03:30→06:08)
[2021-11-04] MEDS ORDERED: ACETAMINOPHEN INJECTION 100 ML IVPB ONE ×3 (03:32→21:54)
[2021-11-04 07:31] LABS: BODY FLUID BASOPHIL 2 %; BODY FLUID MONOCYTE 5 %; BODYL FLD EOSINOPHIL 19 %
[2021-11-04] MEDS ORDERED: CARVEDILOL 25 MG TABLET (FP) ONE ×2 (10:09→21:34)
[2021-11-04] MEDS: CARVEDILOL 25 MG TABLET (FP) PO SCH ×2 (10:14→21:36)
[2021-11-04] MEDS: CINACALCET HCL 30 MG TAB (FP) PO SCH (10:14)
[2021-11-04] MEDS: POLYETHYLENE GLYCOL (HEALTHYLAX) 3350 17 GM PACKET PO SCH (13:03)
[2021-11-04] MEDS: ACETAMINOPHEN 1000 MG/100 ML BAG IVPB PRN ×2 (13:03→21:54)
[2021-11-04] MEDS ORDERED: PANTOPRAZOLE 20 MG TABLET PO ONE (21:23)
[2021-11-04] MEDS ORDERED: ATORVASTATIN CA 40 MG TABLET (FP) ONE (21:34)
[2021-11-04] MEDS: ATORVASTATIN CA 40 MG TABLET (FP) PO SCH (21:36)
[2021-11-04] MEDS ORDERED: ZOLPIDEM TARTRATE 5 MG TABLET PO ONE (23:34)
[2021-11-05] MEDS: PERITONEAL DIALYSIS 2.5% IP SCH ×5 (00:48→22:29)
[2021-11-05] MEDS: HEPARIN IP SCH ×5 (00:48→22:29)
[2021-11-05] MEDS ORDERED: ONDANSETRON 4 MG/2 ML VIAL IVPUSH ONE (03:47)
[2021-11-05] MEDS: ACETAMINOPHEN 1000 MG/100 ML BAG IVPB PRN ×2 (03:51→10:36)
[2021-11-05 08:24] LABS: HEMATOCRIT 26.7 % (32.4-45.2); HEMOGLOBIN 8.9 GM/dL (10.7-15.3); MCH 28.8 pg (25.7-33.7); MCHC 33.2 g/dl (32.0-36.0); MEAN CELL VOLUME 86.9 fl (80-96); MEAN PLT VOLUME 8.5 fl (7.5-11.1); PLATELET COUNT 307 10^3/uL (134-434); RBC 3.07 M/mm3 (3.60-5.2); RDW 12.7 % (11.6-15.6); WHITE BLOOD COUNT 13.8 K/mm3 (4.0-10.0)
[2021-11-05 08:47] LABS: CHLORIDE 94 mmol/L (98-107); SODIUM 133 mmol/L (136-145)
[2021-11-05 08:53] LABS: ALBUMIN 2.4 g/dl (3.4-5.0); ANION GAP 14 MMOL/L (8-16); BLOOD UREA NITROGEN 84.1 mg/dL (7-18); CALCIUM 8.4 mg/dL (8.5-10.1); CO2 24 mmol/L (21-32); GLUCOSE,RANDOM 106 mg/dL (74-106); MAGNESIUM 2.1 mg/dL (1.8-2.4)
[2021-11-05 08:56] LABS: PHOSPHOROUS 4.7 mg/dL (2.5-4.9); SGPT/ALT 13 U/L (13-61)
[2021-11-05 08:57] LABS: SGOT/AST 9 U/L (15-37)
[2021-11-05 08:58] LABS: BILIRUBIN,TOTAL 0.3 mg/dL (0.2-1); TOT PROT 5.8 g/dl (6.4-8.2)
[2021-11-05 08:59] LABS: ALK PHOS 70 U/L (45-117)
[2021-11-05 09:10] LABS: CREATININE 14.5 mg/dL (0.55-1.3)
[2021-11-05] MEDS ORDERED: CEFEPIME HCL 1 GM VIAL (RESTRICTED TO ID) ONE (09:18)
[2021-11-05] MEDS ORDERED: DEXTROSE 5%-WATER - 50 ML IVPB ONE ×2 (09:18→17:08)
[2021-11-05] MEDS: CARVEDILOL 25 MG TABLET (FP) PO SCH ×2 (09:27→23:23)
[2021-11-05 09:28] LABS: ANISOCYTOSIS 0; MACROCYTOSIS 0; ROULEAU 1+
[2021-11-05] MEDS: POLYETHYLENE GLYCOL (HEALTHYLAX) 3350 17 GM PACKET PO SCH ×3 (09:28→23:09)
[2021-11-05] MEDS: CINACALCET HCL 30 MG TAB (FP) PO SCH (09:28)
[2021-11-05] MEDS ORDERED: CEFEPIME 1 GM in DEXTROSE 5%-WATER - 50 ML IVPB SCH (10:00)
[2021-11-05] MEDS ORDERED: VANCOMYCIN 500 MG VIAL (RESTRICTED TO ID ONLY) ONE (11:24)
[2021-11-05] MEDS ORDERED: DEXTROSE 5%-WATER 100 ML IVPB ONE (11:24)
[2021-11-05] MEDS ORDERED: VANCOMYCIN 500 MG in DEXTROSE 5%-WATER 100 ML IVPB ONE (11:30)
[2021-11-05] MEDS: PATIENT'S OWN MEDICATION (NON-FORMULARY) (Linaclotide [Linzess] 290 MCG Capsule) PO SCH (12:23)
[2021-11-05] MEDS ORDERED: HEPARIN IP SCH (13:00)
[2021-11-05] MEDS ORDERED: PERITONEAL DIALYSIS 2.5% IP SCH (13:00)
[2021-11-05] MEDS: CEFAZOLIN SODIUM IP SCH (16:20)
[2021-11-05] MEDS ORDERED: PIPERACILLIN/TAZOBACTAM 2.25 GM VIAL IVPB ONE (17:08)
[2021-11-05] MEDS: PIPERACILLIN/TAZOB 2.25 GM 2.25 GM in DEXTROSE 5%-WATER - 50 ML IVPB SCH (18:34)
[2021-11-05] MEDS: SIMETHICONE 80 MG TAB.CHEW (FP) PO PRN (20:37)
[2021-11-05] MEDS ORDERED: SENNOSIDES 8.6MG TABLET (FP) PO SCH (22:00)
[2021-11-05] MEDS: ATORVASTATIN CA 40 MG TABLET (FP) PO SCH (23:08)
[2021-11-06] MEDS ORDERED: PIPERACILLIN/TAZOBACTAM 2.25 GM VIAL IVPB ONE ×3 (01:10→16:53)
[2021-11-06] MEDS ORDERED: DEXTROSE 5%-WATER - 50 ML IVPB ONE ×3 (01:11→16:53)
[2021-11-06] MEDS: PIPERACILLIN/TAZOB 2.25 GM 2.25 GM in DEXTROSE 5%-WATER - 50 ML IVPB SCH ×3 (02:50→17:14)
[2021-11-06] MEDS: PERITONEAL DIALYSIS 2.5% IP SCH ×3 (04:34→18:43)
[2021-11-06] MEDS: SIMETHICONE 80 MG TAB.CHEW (FP) PO PRN (04:34)
[2021-11-06] MEDS: HEPARIN IP SCH ×3 (04:34→18:43)
[2021-11-06 07:56] LABS: HEMATOCRIT 28.9 % (32.4-45.2); HEMOGLOBIN 9.5 GM/dL (10.7-15.3); MCH 28.5 pg (25.7-33.7); MCHC 32.9 g/dl (32.0-36.0); MEAN CELL VOLUME 86.8 fl (80-96); MEAN PLT VOLUME 8.3 fl (7.5-11.1); PLATELET COUNT 380 10^3/uL (134-434); RBC 3.33 M/mm3 (3.60-5.2); RDW 12.7 % (11.6-15.6); WHITE BLOOD COUNT 25.6 K/mm3 (4.0-10.0)
[2021-11-06 08:22] LABS: CHLORIDE 89 mmol/L (98-107); SODIUM 131 mmol/L (136-145)
[2021-11-06 08:25] LABS: CALCIUM 8.6 mg/dL (8.5-10.1)
[2021-11-06 08:26] LABS: ANION GAP 18 MMOL/L (8-16); BLOOD UREA NITROGEN 80.2 mg/dL (7-18); CO2 25 mmol/L (21-32); GLUCOSE,RANDOM 136 mg/dL (74-106)
[2021-11-06 08:27] LABS: ALBUMIN 2.2 g/dl (3.4-5.0)
[2021-11-06 08:29] LABS: SGOT/AST 8 U/L (15-37); SGPT/ALT 11 U/L (13-61)
[2021-11-06 08:30] LABS: BILIRUBIN,TOTAL 0.3 mg/dL (0.2-1); TOT PROT 6.2 g/dl (6.4-8.2)
[2021-11-06 08:32] LABS: ALK PHOS 79 U/L (45-117); CREATININE 13.8 mg/dL (0.55-1.3)
[2021-11-06 08:56] LABS: ANISOCYTOSIS 0; MACROCYTOSIS 0
[2021-11-06] MEDS: CARVEDILOL 25 MG TABLET (FP) PO SCH ×2 (09:24→21:20)
[2021-11-06] MEDS: CINACALCET HCL 30 MG TAB (FP) PO SCH (09:24)
[2021-11-06] MEDS: POLYETHYLENE GLYCOL (HEALTHYLAX) 3350 17 GM PACKET PO SCH ×2 (09:24→21:20)
[2021-11-06] MEDS: PATIENT'S OWN MEDICATION (NON-FORMULARY) (Linaclotide [Linzess] 290 MCG Capsule) PO SCH ×2 (09:25→09:32)
[2021-11-06] MEDS ORDERED: ACETAMINOPHEN WITH CODEINE 300MG/30MG TABLET PO ONE (09:45)
[2021-11-06] MEDS ORDERED: ACETAMINOPHEN 1000 MG/100 ML BAG IVPB ONE (11:08)
[2021-11-06] MEDS: DOCUSATE SODIUM 100 MG CAPSULE (FP) PO SCH ×3 (11:28→21:19)
[2021-11-06] MEDS ORDERED: VANCOMYCIN/WATER FOR INJ (PEG) 1,000 MG/200 ML BAG IVPB ONE (12:37)
[2021-11-06 14:07] LABS: BODY FLUID ALBUMIN 1.7 g/dL (Not Estab.)
[2021-11-06] MEDS: PATIENT'S OWN MEDICATION (NON-FORMULARY) (Ferric Citrate [Auryxia] 210 MG Tablet) PO SCH ×2 (16:47→16:48)
[2021-11-06] MEDS: traMADol HCL 50 MG TABLET PO PRN ×2 (17:15→23:37)
[2021-11-06] MEDS ORDERED: ONDANSETRON 4 MG/2 ML VIAL IVPUSH ONE (17:24)
[2021-11-06] MEDS: CEFAZOLIN SODIUM IP SCH (18:43)
[2021-11-06 21:16] LABS: BF WBC & OTHER NUCLEATED CELLS 2052 /mm3
[2021-11-06] MEDS: ATORVASTATIN CA 40 MG TABLET (FP) PO SCH (21:19)
[2021-11-06 21:46] LABS: BODY FLUID MONOCYTE 4 %; BODYL FLD EOSINOPHIL 3 %
[2021-11-06] MEDS: ONDANSETRON 4 MG/2 ML VIAL IVPUSH PRN (23:37)
[2021-11-07] MEDS: HEPARIN IP SCH ×5 (00:54→21:11)
[2021-11-07] MEDS: PERITONEAL DIALYSIS 2.5% IP SCH ×4 (00:54→21:11)
[2021-11-07] MEDS ORDERED: PIPERACILLIN/TAZOBACTAM 2.25 GM VIAL IVPB ONE ×3 (00:57→15:36)
[2021-11-07] MEDS ORDERED: DEXTROSE 5%-WATER - 50 ML IVPB ONE ×3 (00:57→15:37)
[2021-11-07] MEDS: PIPERACILLIN/TAZOB 2.25 GM 2.25 GM in DEXTROSE 5%-WATER - 50 ML IVPB SCH ×3 (01:26→18:20)
[2021-11-07] MEDS: traMADol HCL 50 MG TABLET PO PRN (05:31)
[2021-11-07] MEDS: DOCUSATE SODIUM 100 MG CAPSULE (FP) PO SCH ×3 (05:31→21:28)
[2021-11-07] MEDS: ONDANSETRON 4 MG/2 ML VIAL IVPUSH PRN ×3 (05:31→19:20)
[2021-11-07] MEDS ORDERED: MECLIZINE HCL 12.5 MG TABLET PO ONE (06:20)
[2021-11-07 07:53] LABS: HEMATOCRIT 29.5 % (32.4-45.2); HEMOGLOBIN 9.7 GM/dL (10.7-15.3); MCH 28.4 pg (25.7-33.7); MCHC 32.9 g/dl (32.0-36.0); MEAN CELL VOLUME 86.6 fl (80-96); PLATELET COUNT 373 10^3/uL (134-434); RBC 3.41 M/mm3 (3.60-5.2); RDW 12.7 % (11.6-15.6); WHITE BLOOD COUNT 14.3 K/mm3 (4.0-10.0)
[2021-11-07 08:17] LABS: CHLORIDE 90 mmol/L (98-107); SODIUM 132 mmol/L (136-145)
[2021-11-07 08:29] LABS: ANION GAP 16 MMOL/L (8-16); BLOOD UREA NITROGEN 67.8 mg/dL (7-18); CALCIUM 8.6 mg/dL (8.5-10.1); CO2 25 mmol/L (21-32); GLUCOSE,RANDOM 147 mg/dL (74-106); MAGNESIUM 1.8 mg/dL (1.8-2.4)
[2021-11-07 08:32] LABS: PHOSPHOROUS 5.3 mg/dL (2.5-4.9); SGOT/AST 11 U/L (15-37); SGPT/ALT 8 U/L (13-61)
[2021-11-07 08:33] LABS: TOT PROT 6.1 g/dl (6.4-8.2)
[2021-11-07 08:35] LABS: ALK PHOS 75 U/L (45-117); BILIRUBIN,TOTAL 0.4 mg/dL (0.2-1)
[2021-11-07 08:40] LABS: CREATININE 11.8 mg/dL (0.55-1.3)
[2021-11-07] MEDS: CARVEDILOL 25 MG TABLET (FP) PO SCH ×2 (09:45→21:13)
[2021-11-07] MEDS: PATIENT'S OWN MEDICATION (NON-FORMULARY) (Linaclotide [Linzess] 290 MCG Capsule) PO SCH ×2 (09:45→09:52)
[2021-11-07] MEDS: CINACALCET HCL 30 MG TAB (FP) PO SCH (09:45)
[2021-11-07] MEDS: POLYETHYLENE GLYCOL (HEALTHYLAX) 3350 17 GM PACKET PO SCH (09:46)
[2021-11-07] MEDS: SIMETHICONE 80 MG TAB.CHEW (FP) PO PRN (11:31)
[2021-11-07] MEDS ORDERED: MECLIZINE HCL 12.5 MG TABLET PO PRN (11:52)
[2021-11-07] MEDS: ACETAMINOPHEN 1000 MG/100 ML BAG IVPB PRN ×2 (13:49→21:29)
[2021-11-07] MEDS: MECLIZINE HCL 12.5 MG TABLET PO SCH ×2 (13:49→21:28)
[2021-11-07] MEDS: CEFTAZIDIME PENTAHYDRATE IP SCH (15:00)
[2021-11-07] MEDS: [UNRECOGNIZED DRUG - OTHER] IP SCH (15:00)
[2021-11-07] MEDS: ATORVASTATIN CA 40 MG TABLET (FP) PO SCH (21:28)
[2021-11-08] MEDS ORDERED: DEXTROSE 5%-WATER - 50 ML IVPB ONE ×3 (01:03→17:23)
[2021-11-08] MEDS ORDERED: PIPERACILLIN/TAZOBACTAM 2.25 GM VIAL IVPB ONE ×3 (01:03→17:23)
[2021-11-08] MEDS: PIPERACILLIN/TAZOB 2.25 GM 2.25 GM in DEXTROSE 5%-WATER - 50 ML IVPB SCH ×3 (02:05→17:50)
[2021-11-08] MEDS: HEPARIN IP SCH ×4 (03:00→21:22)
[2021-11-08] MEDS: PERITONEAL DIALYSIS 2.5% IP SCH ×3 (03:00→21:22)
[2021-11-08] MEDS: ACETAMINOPHEN 1000 MG/100 ML BAG IVPB PRN ×2 (03:37→09:28)
[2021-11-08] MEDS: DOCUSATE SODIUM 100 MG CAPSULE (FP) PO SCH ×3 (05:46→21:12)
[2021-11-08] MEDS: MECLIZINE HCL 12.5 MG TABLET PO SCH ×3 (05:46→21:12)
[2021-11-08] MEDS: SIMETHICONE 80 MG TAB.CHEW (FP) PO PRN ×3 (07:48→21:22)
[2021-11-08 09:12] LABS: HEMATOCRIT 26.5 % (32.4-45.2); HEMOGLOBIN 8.8 GM/dL (10.7-15.3); MCH 28.9 pg (25.7-33.7); MCHC 33.3 g/dl (32.0-36.0); MEAN CELL VOLUME 86.7 fl (80-96); MEAN PLT VOLUME 8.1 fl (7.5-11.1); PLATELET COUNT 389 10^3/uL (134-434); RBC 3.06 M/mm3 (3.60-5.2); RDW 12.5 % (11.6-15.6); WHITE BLOOD COUNT 10.2 K/mm3 (4.0-10.0)
[2021-11-08] MEDS: POLYETHYLENE GLYCOL (HEALTHYLAX) 3350 17 GM PACKET PO SCH ×2 (09:29→11:25)
[2021-11-08] MEDS: CINACALCET HCL 30 MG TAB (FP) PO SCH (09:40)
[2021-11-08] MEDS: PATIENT'S OWN MEDICATION (NON-FORMULARY) (Linaclotide [Linzess] 290 MCG Capsule) PO SCH (09:40)
[2021-11-08] MEDS: CARVEDILOL 25 MG TABLET (FP) PO SCH ×2 (09:40→21:12)
[2021-11-08 09:42] LABS: CHLORIDE 93 mmol/L (98-107); SODIUM 133 mmol/L (136-145)
[2021-11-08 09:52] LABS: GLUCOSE,RANDOM 93 mg/dL (74-106)
[2021-11-08 09:59] LABS: PHOSPHOROUS 5.7 mg/dL (2.5-4.9)
[2021-11-08 10:00] LABS: CALCIUM 8.2 mg/dL (8.5-10.1)
[2021-11-08 10:02] LABS: ANION GAP 15 MMOL/L (8-16); BLOOD UREA NITROGEN 57.6 mg/dL (7-18); CO2 26 mmol/L (21-32); MAGNESIUM 1.8 mg/dL (1.8-2.4)
[2021-11-08 10:08] LABS: CREATININE 10.9 mg/dL (0.55-1.3)
[2021-11-08] MEDS ORDERED: POTASSIUM CHLORIDE TABS 20 MEQ TABLET.ER (FP) PO ONE (12:15)
[2021-11-08] MEDS: CEFTAZIDIME PENTAHYDRATE IP SCH (15:01)
[2021-11-08] MEDS: [UNRECOGNIZED DRUG - OTHER] IP SCH (15:01)
[2021-11-08] MEDS ORDERED: traMADol HCL 50 MG TABLET PO PRN (17:37)
[2021-11-08] MEDS: ATORVASTATIN CA 40 MG TABLET (FP) PO SCH (21:12)
[2021-11-08] MEDS: ACETAMINOPHEN 325 MG TABLET (FP) PO PRN (21:50)
[2021-11-09] MEDS ORDERED: PIPERACILLIN/TAZOBACTAM 2.25 GM VIAL IVPB ONE ×3 (01:07→16:00)
[2021-11-09] MEDS ORDERED: DEXTROSE 5%-WATER - 50 ML IVPB ONE ×3 (01:07→16:00)
[2021-11-09] MEDS: PIPERACILLIN/TAZOB 2.25 GM 2.25 GM in DEXTROSE 5%-WATER - 50 ML IVPB SCH ×3 (03:15→18:00)
[2021-11-09] MEDS: HEPARIN IP SCH ×4 (04:20→21:06)
[2021-11-09] MEDS: PERITONEAL DIALYSIS 2.5% IP SCH ×3 (04:20→21:06)
[2021-11-09] MEDS: MECLIZINE HCL 12.5 MG TABLET PO SCH ×3 (06:18→21:17)
[2021-11-09] MEDS: DOCUSATE SODIUM 100 MG CAPSULE (FP) PO SCH ×3 (06:19→21:17)
[2021-11-09 08:56] LABS: CHLORIDE 93 mmol/L (98-107); SODIUM 134 mmol/L (136-145)
[2021-11-09 09:01] LABS: ANION GAP 14 MMOL/L (8-16); BLOOD UREA NITROGEN 53.7 mg/dL (7-18); CALCIUM 8.5 mg/dL (8.5-10.1); CO2 27 mmol/L (21-32); GLUCOSE,RANDOM 95 mg/dL (74-106); MAGNESIUM 1.7 mg/dL (1.8-2.4)
[2021-11-09 09:04] LABS: SGOT/AST 12 U/L (15-37)
[2021-11-09 09:05] LABS: BILIRUBIN,TOTAL 0.2 mg/dL (0.2-1); PHOSPHOROUS 4.8 mg/dL (2.5-4.9); TOT PROT 5.9 g/dl (6.4-8.2)
[2021-11-09 09:07] LABS: ALK PHOS 65 U/L (45-117)
[2021-11-09] MEDS ORDERED: MAGNESIUM SULF 50% (8.12 MEQ/2 ML-1 GM VIAL) IVPB ONE (09:09)
[2021-11-09 09:10] LABS: CREATININE 10.8 mg/dL (0.55-1.3); SGPT/ALT < 6 U/L (13-61)
[2021-11-09] MEDS: CARVEDILOL 25 MG TABLET (FP) PO SCH ×2 (09:54→21:05)
[2021-11-09] MEDS: SIMETHICONE 80 MG TAB.CHEW (FP) PO PRN ×3 (09:54→21:05)
[2021-11-09] MEDS: CINACALCET HCL 30 MG TAB (FP) PO SCH (09:54)
[2021-11-09] MEDS: PATIENT'S OWN MEDICATION (NON-FORMULARY) (Linaclotide [Linzess] 290 MCG Capsule) PO SCH (09:56)
[2021-11-09] MEDS: POLYETHYLENE GLYCOL (HEALTHYLAX) 3350 17 GM PACKET PO SCH (09:56)
[2021-11-09] MEDS ORDERED: POTASSIUM CHLORIDE TABS 20 MEQ TABLET.ER (FP) PO ONE ×2 (11:36→15:00)
[2021-11-09] MEDS: KCL 10 MEQ IVPB 10 MEQ/100 ML INFUS.BAG IVPB SCH (12:58)
[2021-11-09] MEDS ORDERED: MAGNESIUM OXIDE 400 MG TABLET (FP) PO ONE (13:00)
[2021-11-09 14:57] VITALS: BMI 33.6
[2021-11-09] MEDS: CEFTAZIDIME PENTAHYDRATE IP SCH (16:03)
[2021-11-09] MEDS: [UNRECOGNIZED DRUG - OTHER] IP SCH (16:03)
[2021-11-09] MEDS: ACETAMINOPHEN 325 MG TABLET (FP) PO PRN (18:05)
[2021-11-09 19:56] LABS: BF WBC & OTHER NUCLEATED CELLS 52 /mm3
[2021-11-09 20:57] LABS: BODY FLUID MESOTHELIAL 2 %; BODY FLUID MONOCYTE 20 %; BODYL FLD EOSINOPHIL 7 %
[2021-11-09] MEDS: ATORVASTATIN CA 40 MG TABLET (FP) PO SCH (21:05)
[2021-11-09] MEDS: BANATROL PLUS POWDER PACKET PO SCH (21:24)
[2021-11-10] MEDS ORDERED: PIPERACILLIN/TAZOBACTAM 2.25 GM VIAL IVPB ONE ×3 (01:31→19:07)
[2021-11-10] MEDS ORDERED: DEXTROSE 5%-WATER - 50 ML IVPB ONE ×3 (01:32→19:07)
[2021-11-10] MEDS: PERITONEAL DIALYSIS 2.5% IP SCH ×3 (02:34→21:27)
[2021-11-10] MEDS: HEPARIN IP SCH ×4 (02:34→21:27)
[2021-11-10] MEDS: PIPERACILLIN/TAZOB 2.25 GM 2.25 GM in DEXTROSE 5%-WATER - 50 ML IVPB SCH ×3 (02:35→19:09)
[2021-11-10] MEDS: DOCUSATE SODIUM 100 MG CAPSULE (FP) PO SCH ×3 (06:11→21:25)
[2021-11-10] MEDS: MECLIZINE HCL 12.5 MG TABLET PO SCH ×3 (06:11→21:25)
[2021-11-10] MEDS: ACETAMINOPHEN 325 MG TABLET (FP) PO PRN (07:47)
[2021-11-10 09:08] LABS: HEMATOCRIT 29.7 % (32.4-45.2); MCHC 33.7 g/dl (32.0-36.0); MEAN CELL VOLUME 86.2 fl (80-96); MEAN PLT VOLUME 7.1 fl (7.5-11.1); PLATELET COUNT 457 10^3/uL (134-434); RBC 3.44 M/mm3 (3.60-5.2); RDW 12.4 % (11.6-15.6); WHITE BLOOD COUNT 9.2 K/mm3 (4.0-10.0)
[2021-11-10] MEDS: CARVEDILOL 25 MG TABLET (FP) PO SCH ×2 (09:27→21:24)
[2021-11-10] MEDS: BANATROL PLUS POWDER PACKET PO SCH ×2 (09:27→21:25)
[2021-11-10] MEDS: PATIENT'S OWN MEDICATION (NON-FORMULARY) (Linaclotide [Linzess] 290 MCG Capsule) PO SCH (09:28)
[2021-11-10] MEDS: CINACALCET HCL 30 MG TAB (FP) PO SCH (09:29)
[2021-11-10 10:29] LABS: CHLORIDE 92 mmol/L (98-107); SODIUM 135 mmol/L (136-145)
[2021-11-10 10:42] LABS: ANION GAP 13 MMOL/L (8-16); BLOOD UREA NITROGEN 47.3 mg/dL (7-18); CO2 29 mmol/L (21-32); GLUCOSE,RANDOM 99 mg/dL (74-106); MAGNESIUM 2.1 mg/dL (1.8-2.4)
[2021-11-10 10:45] LABS: PHOSPHOROUS 4.8 mg/dL (2.5-4.9)
[2021-11-10 10:46] LABS: CREATININE 10.5 mg/dL (0.55-1.3)
[2021-11-10] MEDS: [UNRECOGNIZED DRUG - OTHER] IP SCH (15:06)
[2021-11-10] MEDS: CEFTAZIDIME PENTAHYDRATE IP SCH (15:06)
[2021-11-10] MEDS: SIMETHICONE 80 MG TAB.CHEW (FP) PO PRN (15:09)
[2021-11-10] MEDS: LACTOBACILLUS ACIDOPHILUS 1 TABLET PO ONE ×2 (19:10→19:49)
[2021-11-10] MEDS: ATORVASTATIN CA 40 MG TABLET (FP) PO SCH (21:24)
[2021-11-11] MEDS ORDERED: PIPERACILLIN/TAZOBACTAM 2.25 GM VIAL IVPB ONE ×2 (01:33→09:12)
[2021-11-11] MEDS ORDERED: DEXTROSE 5%-WATER - 50 ML IVPB ONE ×2 (01:33→09:12)
[2021-11-11] MEDS: PIPERACILLIN/TAZOB 2.25 GM 2.25 GM in DEXTROSE 5%-WATER - 50 ML IVPB SCH ×2 (02:38→10:18)
[2021-11-11] MEDS: PERITONEAL DIALYSIS 2.5% IP SCH ×2 (03:29→10:17)
[2021-11-11] MEDS: HEPARIN IP SCH ×4 (03:29→22:10)
[2021-11-11] MEDS: DOCUSATE SODIUM 100 MG CAPSULE (FP) PO SCH ×3 (05:48→21:34)
[2021-11-11] MEDS: MECLIZINE HCL 12.5 MG TABLET PO SCH (06:29)
[2021-11-11] MEDS ORDERED: MECLIZINE HCL 12.5 MG TABLET PO PRN (07:20)
[2021-11-11] MEDS: BANATROL PLUS POWDER PACKET PO SCH ×2 (10:17→21:34)
[2021-11-11] MEDS: CARVEDILOL 25 MG TABLET (FP) PO SCH ×2 (10:17→21:34)
[2021-11-11] MEDS: CINACALCET HCL 30 MG TAB (FP) PO SCH (10:18)
[2021-11-11] MEDS: PATIENT'S OWN MEDICATION (NON-FORMULARY) (Linaclotide [Linzess] 290 MCG Capsule) PO SCH (10:18)
[2021-11-11] MEDS: [UNRECOGNIZED DRUG - OTHER] IP SCH (17:07)
[2021-11-11] MEDS: CEFTAZIDIME PENTAHYDRATE IP SCH (17:07)
[2021-11-11] MEDS ORDERED: HEPARIN IP SCH (19:00)
[2021-11-11] MEDS ORDERED: PERITONEAL DIALYSIS 1.5% IP SCH (19:00)
[2021-11-11] MEDS: SIMETHICONE 80 MG TAB.CHEW (FP) PO PRN (21:34)
[2021-11-11] MEDS: ATORVASTATIN CA 40 MG TABLET (FP) PO SCH (21:34)
[2021-11-11] MEDS: PERITONEAL DIALYSIS 1.5% IP SCH (22:10)
[2021-11-12] MEDS: PERITONEAL DIALYSIS 1.5% IP SCH ×2 (04:10→10:10)
[2021-11-12] MEDS: HEPARIN IP SCH ×2 (04:10→10:10)
[2021-11-12] MEDS: ACETAMINOPHEN 325 MG TABLET (FP) PO PRN (04:56)
[2021-11-12] MEDS: DOCUSATE SODIUM 100 MG CAPSULE (FP) PO SCH ×2 (05:53→14:38)
[2021-11-12 08:54] LABS: HEMOGLOBIN 9.8 GM/dL (10.7-15.3); MCH 28.3 pg (25.7-33.7); MCHC 32.5 g/dl (32.0-36.0); MEAN PLT VOLUME 7.4 fl (7.5-11.1); PLATELET COUNT 487 10^3/uL (134-434); RBC 3.45 M/mm3 (3.60-5.2); RDW 12.1 % (11.6-15.6); WHITE BLOOD COUNT 10.7 K/mm3 (4.0-10.0)
[2021-11-12 09:21] LABS: CHLORIDE 95 mmol/L (98-107); SODIUM 137 mmol/L (136-145)
[2021-11-12 09:23] LABS: CALCIUM 8.7 mg/dL (8.5-10.1)
[2021-11-12 09:24] LABS: ANION GAP 11 MMOL/L (8-16); BLOOD UREA NITROGEN 36.2 mg/dL (7-18); CO2 31 mmol/L (21-32); GLUCOSE,RANDOM 92 mg/dL (74-106)
[2021-11-12 09:25] LABS: MAGNESIUM 1.8 mg/dL (1.8-2.4)
[2021-11-12 09:28] LABS: PHOSPHOROUS 4.9 mg/dL (2.5-4.9)
[2021-11-12] MEDS: BANATROL PLUS POWDER PACKET PO SCH (10:26)
[2021-11-12] MEDS: CINACALCET HCL 30 MG TAB (FP) PO SCH (10:26)
[2021-11-12] MEDS: SIMETHICONE 80 MG TAB.CHEW (FP) PO PRN (10:26)
[2021-11-12] MEDS: CARVEDILOL 25 MG TABLET (FP) PO SCH (10:26)
[2021-11-12] MEDS: PATIENT'S OWN MEDICATION (NON-FORMULARY) (Linaclotide [Linzess] 290 MCG Capsule) PO SCH (10:31)
[2021-11-12] MEDS ORDERED: HEPARIN IP SCH ×2 (13:00→16:00)
[2021-11-12] MEDS ORDERED: [UNRECOGNIZED DRUG - OTHER] IP SCH ×2 (13:00→16:00)
[2021-11-12] MEDS ORDERED: CEFTAZIDIME PENTAHYDRATE IP SCH ×2 (13:00→16:00)
[2021-11-12 13:09] VITALS: RESP 18
[2021-11-12 15:41] VITALS: BP 117/57
[2021-11-12 17:01] VITALS: PULSE 77; TEMP 99.5
== END 2021-11-12 18:54 | disposition home or self-care (01) | DRG 371 ==
LOC: JER 19:44 → JERBED 21:45 → J4S 11-04 22:47
PROVIDERS: ADMIT Hospitalist; ATTEND Internal Medicine
PROC: 3E1M39Z Irrigation of Peritoneal Cavity using Dialysate, Percutaneous Approach (ICD-10-PCS; principal; 2021-11-10)
DX: K65.2 Spontaneous bacterial peritonitis (principal); N18.6 End stage renal disease; I12.0 Hypertensive chronic kidney disease with stage 5 chronic kidney disease or end stage renal disease; Z99.2 Dependence on renal dialysis; D64.9 Anemia, unspecified; E78.5 Hyperlipidemia, unspecified; E87.6 Hypokalemia; K58.9 Irritable bowel syndrome, unspecified
CPT/HCPCS: 0241U-QW; 36415; 74176-TC; 80048; 80053; 81003; 82042; 82150; 82945; 83605; 83615; 83690; 83735; 84100; 84157; 84443; 84702; 85025; 85027; 85610; 85730; 86850; 86900; 86901; 87040; 87070; 87075; 87086; 87102; 87116; 87186; 87205; 87206; 87210; 93005; 93010; 99285-25; G0480; J1644

== ENCOUNTER 2021-12-03 21:03 | Inpatient (IN) | payer BC ==
[2021-12-03] MEDS ORDERED: SODIUM CHLORIDE 0.9% 500 ML INFUS.BAG IV ONE ×2 (21:26→23:01)
[2021-12-03] MEDS ORDERED: ONDANSETRON 4 MG/2 ML VIAL IVPUSH ONE ×2 (21:26→22:05)
[2021-12-03] MEDS ORDERED: FAMOTIDINE 20 MG/50 ML IVPB 20 MG/50 ML MG IVPB ONE ×2 (21:29→21:36)
[2021-12-03] MEDS ORDERED: ONDANSETRON 4 MG/2 ML VIAL ONE ×2 (21:35→22:27)
[2021-12-03 22:23] LABS: BASO % 0.5 % (0-2.0); EOS % 0.1 % (0-4.5); HEMATOCRIT 42.5 % (32.4-45.2); LYMPH % 5.3 % (8-40); MCH 29.1 pg (25.7-33.7); MEAN CELL VOLUME 88.3 fl (80-96); MEAN PLT VOLUME 8.1 fl (7.5-11.1); MONO % 3.1 % (3.8-10.2); PLATELET COUNT 473 10^3/uL (134-434); RBC 4.81 M/mm3 (3.60-5.2); WHITE BLOOD COUNT 13.4 K/mm3 (4.0-10.0)
[2021-12-03 22:33] LABS: INR 1.02 (0.83-1.09); PROTHROMBIN TIME (PATIENT) 11.7 SEC (9.7-13.0)
[2021-12-03 22:35] LABS: ACTIVATED PTT 35.7 SECONDS (25.2-36.5)
[2021-12-03 22:40] LABS: CHLORIDE 89 mmol/L (98-107); SODIUM 132 mmol/L (136-145)
[2021-12-03 22:42] LABS: CALCIUM 11.8 mg/dL (8.5-10.1)
[2021-12-03 22:43] LABS: ANION GAP 22 MMOL/L (8-16); BLOOD UREA NITROGEN 68.9 mg/dL (7-18); CO2 21 mmol/L (21-32); GLUCOSE,RANDOM 167 mg/dL (74-106); LIPASE 448 U/L (73-393); MAGNESIUM 2.6 mg/dL (1.8-2.4)
[2021-12-03 22:46] LABS: PHOSPHOROUS 5.4 mg/dL (2.5-4.9); SGOT/AST 20 U/L (15-37); SGPT/ALT 24 U/L (13-61)
[2021-12-03 22:47] LABS: BILIRUBIN,TOTAL 0.4 mg/dL (0.2-1)
[2021-12-03 22:49] LABS: ALK PHOS 123 U/L (45-117)
[2021-12-03 23:09] LABS: CREATININE 16.2 mg/dL (0.55-1.3)
[2021-12-03 23:21] LABS: ANISOCYTOSIS 1+; MACROCYTOSIS 0
[2021-12-04] MEDS ORDERED: METOCLOPRAMIDE HCL INJECTION 10 MG/2 ML VIAL IVPUSH ONE
[2021-12-04] MEDS ORDERED: METOCLOPRAMIDE HCL INJECTION 10 MG/2 ML VIAL ONE
[2021-12-04 00:51] LABS: LACTIC ACID 7.2 mmol/L (0.4-2.0)
[2021-12-04] MEDS ORDERED: SODIUM CHLORIDE 0.9% 500 ML INFUS.BAG IV ONE ×2 (01:00→04:30)
[2021-12-04 02:43] LABS: LACTIC ACID 7.2 mmol/L (0.4-2.0)
[2021-12-04] MEDS ORDERED: SIMETHICONE 80 MG TAB.CHEW (FP) PO ONE (05:14)
[2021-12-04 05:54] VITALS: BMI 33.2
[2021-12-04 09:26] LABS: BASO % 0.4 % (0-2.0); HEMATOCRIT 38.5 % (32.4-45.2); HEMOGLOBIN 12.4 GM/dL (10.7-15.3); LYMPH % 5.6 % (8-40); MCH 28.8 pg (25.7-33.7); MCHC 32.1 g/dl (32.0-36.0); MEAN CELL VOLUME 89.6 fl (80-96); MEAN PLT VOLUME 8.1 fl (7.5-11.1); MONO % 4.5 % (3.8-10.2); NEUT % 89.5 % (42.8-82.8); PLATELET COUNT 415 10^3/uL (134-434); RDW 13.3 % (11.6-15.6); WHITE BLOOD COUNT 17.5 K/mm3 (4.0-10.0)
[2021-12-04 09:48] LABS: CHLORIDE 96 mmol/L (98-107); SODIUM 136 mmol/L (136-145)
[2021-12-04 09:59] LABS: CALCIUM 10.3 mg/dL (8.5-10.1); GLUCOSE,RANDOM 139 mg/dL (74-106); LACTIC ACID 6.1 mmol/L (0.4-2.0)
[2021-12-04 10:00] LABS: ALBUMIN 3.5 g/dl (3.4-5.0); ANION GAP 25 MMOL/L (8-16); BLOOD UREA NITROGEN 71.3 mg/dL (7-18); CO2 15 mmol/L (21-32); MAGNESIUM 2.4 mg/dL (1.8-2.4)
[2021-12-04 10:03] LABS: PHOSPHOROUS 5.7 mg/dL (2.5-4.9); SGPT/ALT 20 U/L (13-61)
[2021-12-04 10:05] LABS: BILIRUBIN,TOTAL 0.4 mg/dL (0.2-1); TOT PROT 8.2 g/dl (6.4-8.2)
[2021-12-04 10:06] LABS: ALK PHOS 101 U/L (45-117)
[2021-12-04 10:07] LABS: SGOT/AST 13 U/L (15-37)
[2021-12-04 10:08] LABS: CREATININE 15.6 mg/dL (0.55-1.3)
[2021-12-04] MEDS: [UNRECOGNIZED DRUG - OTHER] PO SCH (11:35)
[2021-12-04] MEDS: LINZESS 290 MCG PO SCH (11:35)
[2021-12-04] MEDS ORDERED: SIMETHICONE 40 MG/0.6 ML BOTTLE PO PRN (13:05)
[2021-12-04] MEDS ORDERED: ACETAMINOPHEN 325 MG TABLET (FP) PO PRN (13:28)
[2021-12-04] MEDS ORDERED: VANCOMYCIN/WATER FOR INJ (PEG) 1,000 MG/200 ML BAG IVPB ONE (16:36)
[2021-12-04] MEDS: CEFEPIME 1 GM in DEXTROSE 5%-WATER 100 ML IVPB SCH (16:49)
[2021-12-04] MEDS ORDERED: ACETAMINOPHEN 1000 MG/100 ML BAG IVPB ONE (19:15)
[2021-12-05] MEDS: PERITONEAL DIALYSIS 1.5% IP SCH ×4 (03:49→22:36)
[2021-12-05] MEDS: HEPARIN IP SCH ×4 (03:49→22:36)
[2021-12-05 04:01] LABS: LACTIC ACID 3.6 mmol/L (0.4-2.0)
[2021-12-05] MEDS: CEFEPIME 1 GM in DEXTROSE 5%-WATER 100 ML IVPB SCH (10:46)
[2021-12-05] MEDS: LINZESS 290 MCG PO SCH (10:48)
[2021-12-05] MEDS: [UNRECOGNIZED DRUG - OTHER] PO SCH (10:48)
[2021-12-05 12:41] LABS: BASO % 0.8 % (0-2.0); EOS % 0.1 % (0-4.5); HEMATOCRIT 34.5 % (32.4-45.2); HEMOGLOBIN 11.1 GM/dL (10.7-15.3); LYMPH % 10.1 % (8-40); MCHC 32.1 g/dl (32.0-36.0); MEAN CELL VOLUME 87.1 fl (80-96); MONO % 7.6 % (3.8-10.2); NEUT % 81.4 % (42.8-82.8); PLATELET COUNT 357 10^3/uL (134-434); RBC 3.96 M/mm3 (3.60-5.2); RDW 13.2 % (11.6-15.6); WHITE BLOOD COUNT 14.2 K/mm3 (4.0-10.0)
[2021-12-05 12:58] LABS: CHLORIDE 99 mmol/L (98-107); SODIUM 139 mmol/L (136-145)
[2021-12-05 12:59] LABS: CALCIUM 9.3 mg/dL (8.5-10.1)
[2021-12-05 13:00] LABS: ALBUMIN 2.9 g/dl (3.4-5.0); ANION GAP 19 MMOL/L (8-16); BLOOD UREA NITROGEN 86.4 mg/dL (7-18); CO2 21 mmol/L (21-32); GLUCOSE,RANDOM 97 mg/dL (74-106); MAGNESIUM 2.2 mg/dL (1.8-2.4)
[2021-12-05 13:02] LABS: LACTIC ACID 3.2 mmol/L (0.4-2.0)
[2021-12-05 13:03] LABS: PHOSPHOROUS 6.4 mg/dL (2.5-4.9); SGOT/AST 13 U/L (15-37); SGPT/ALT 18 U/L (13-61)
[2021-12-05 13:05] LABS: BILIRUBIN,TOTAL 0.3 mg/dL (0.2-1)
[2021-12-05 13:06] LABS: ALK PHOS 79 U/L (45-117)
[2021-12-05 13:25] LABS: CREATININE 16.4 mg/dL (0.55-1.3)
[2021-12-05 14:21] LABS: BF WBC & OTHER NUCLEATED CELLS 17 /mm3
[2021-12-05 14:45] LABS: BODY FLUID MONOCYTE 85 %
[2021-12-05] MEDS: SODIUM CHLORIDE 1,000 ML IV SCH (17:26)
[2021-12-06] MEDS: BENZOCAINE/MENTH/CETYLPYRD CL 1 EACH LOZENGE MM PRN (00:17)
[2021-12-06] MEDS: PERITONEAL DIALYSIS 1.5% IP SCH ×4 (04:30→22:14)
[2021-12-06] MEDS: HEPARIN IP SCH ×4 (04:30→22:14)
[2021-12-06] MEDS: SODIUM CHLORIDE 1,000 ML IV SCH ×2 (06:28→18:40)
[2021-12-06 08:58] LABS: BASO % 0.9 % (0-2.0); HEMATOCRIT 31.3 % (32.4-45.2); HEMOGLOBIN 10.5 GM/dL (10.7-15.3); LYMPH % 18.5 % (8-40); MCH 29.4 pg (25.7-33.7); MCHC 33.6 g/dl (32.0-36.0); MEAN CELL VOLUME 87.3 fl (80-96); MEAN PLT VOLUME 7.5 fl (7.5-11.1); MONO % 10.2 % (3.8-10.2); NEUT % 69.4 % (42.8-82.8); PLATELET COUNT 316 10^3/uL (134-434); RBC 3.58 M/mm3 (3.60-5.2); RDW 13.2 % (11.6-15.6); WHITE BLOOD COUNT 9.1 K/mm3 (4.0-10.0)
[2021-12-06 09:15] LABS: CHLORIDE 98 mmol/L (98-107); SODIUM 139 mmol/L (136-145)
[2021-12-06 09:21] LABS: ANION GAP 16 MMOL/L (8-16); BLOOD UREA NITROGEN 80.7 mg/dL (7-18); CALCIUM 9.3 mg/dL (8.5-10.1); CO2 24 mmol/L (21-32); GLUCOSE,RANDOM 95 mg/dL (74-106)
[2021-12-06 09:22] LABS: ALBUMIN 2.7 g/dl (3.4-5.0)
[2021-12-06 09:24] LABS: PHOSPHOROUS 6.4 mg/dL (2.5-4.9); SGOT/AST 13 U/L (15-37); SGPT/ALT 16 U/L (13-61)
[2021-12-06 09:26] LABS: BILIRUBIN,TOTAL 0.6 mg/dL (0.2-1); TOT PROT 6.5 g/dl (6.4-8.2)
[2021-12-06 09:27] LABS: ALK PHOS 70 U/L (45-117)
[2021-12-06 09:32] LABS: CREATININE 16.2 mg/dL (0.55-1.3)
[2021-12-06] MEDS: CEFEPIME 1 GM in DEXTROSE 5%-WATER 100 ML IVPB SCH (10:27)
[2021-12-06] MEDS: LINZESS 290 MCG PO SCH (10:28)
[2021-12-06] MEDS: [UNRECOGNIZED DRUG - OTHER] PO SCH (10:28)
[2021-12-07] MEDS: HEPARIN IP SCH ×5 (04:03→22:58)
[2021-12-07] MEDS: PERITONEAL DIALYSIS 1.5% IP SCH ×5 (04:03→22:58)
[2021-12-07] MEDS: BENZOCAINE/MENTH/CETYLPYRD CL 1 EACH LOZENGE MM PRN (05:56)
[2021-12-07 06:55] LABS: BASO % 0.9 % (0-2.0); EOS % 2.2 % (0-4.5); HEMATOCRIT 28.4 % (32.4-45.2); HEMOGLOBIN 9.4 GM/dL (10.7-15.3); LYMPH % 18.5 % (8-40); MCH 28.7 pg (25.7-33.7); MCHC 33.1 g/dl (32.0-36.0); MEAN CELL VOLUME 86.8 fl (80-96); MEAN PLT VOLUME 8.1 fl (7.5-11.1); MONO % 11.7 % (3.8-10.2); NEUT % 66.7 % (42.8-82.8); PLATELET COUNT 283 10^3/uL (134-434); RBC 3.27 M/mm3 (3.60-5.2); WHITE BLOOD COUNT 7.1 K/mm3 (4.0-10.0)
[2021-12-07 07:02] LABS: CHLORIDE 98 mmol/L (98-107); SODIUM 139 mmol/L (136-145)
[2021-12-07 07:05] LABS: CALCIUM 8.6 mg/dL (8.5-10.1)
[2021-12-07 07:06] LABS: ALBUMIN 2.5 g/dl (3.4-5.0); ANION GAP 14 MMOL/L (8-16); BLOOD UREA NITROGEN 72.8 mg/dL (7-18); CO2 27 mmol/L (21-32); GLUCOSE,RANDOM 98 mg/dL (74-106); MAGNESIUM 1.7 mg/dL (1.8-2.4)
[2021-12-07 07:08] LABS: PHOSPHOROUS 6.1 mg/dL (2.5-4.9)
[2021-12-07 07:09] LABS: SGOT/AST 14 U/L (15-37); SGPT/ALT 13 U/L (13-61)
[2021-12-07 07:10] LABS: BILIRUBIN,TOTAL 0.4 mg/dL (0.2-1); TOT PROT 5.8 g/dl (6.4-8.2)
[2021-12-07 07:11] LABS: ALK PHOS 60 U/L (45-117)
[2021-12-07 07:15] LABS: CREATININE 15.2 mg/dL (0.55-1.3)
[2021-12-07] MEDS: MAGNESIUM SULF 50% (8.12 MEQ/2 ML-1 GM VIAL) IVPB ONE ×2 (07:48→08:40)
[2021-12-07] MEDS: KCL 10 MEQ IVPB 10 MEQ/100 ML INFUS.BAG IVPB SCH ×3 (08:41→09:46)
[2021-12-07] MEDS: LINZESS 290 MCG PO SCH (10:27)
[2021-12-07] MEDS: [UNRECOGNIZED DRUG - OTHER] PO SCH (10:27)
[2021-12-07] MEDS ORDERED: POTASSIUM CHLORIDE ORAL LIQUID 20 MEQ/15 ML PO ONE (11:00)
[2021-12-07] MEDS ORDERED: MAGNESIUM OXIDE 400 MG TABLET (FP) PO ONE (11:00)
[2021-12-07] MEDS: CEFEPIME 1 GM in DEXTROSE 5%-WATER 100 ML IVPB SCH (11:30)
[2021-12-07] MEDS: SODIUM CHLORIDE 1,000 ML IV SCH (14:57)
[2021-12-08] MEDS: PERITONEAL DIALYSIS 1.5% IP SCH ×3 (05:07→16:47)
[2021-12-08] MEDS: HEPARIN IP SCH ×3 (05:07→16:47)
[2021-12-08 08:17] VITALS: RESP 18
[2021-12-08] MEDS: LINZESS 290 MCG PO SCH (09:28)
[2021-12-08] MEDS: [UNRECOGNIZED DRUG - OTHER] PO SCH (09:28)
[2021-12-08 09:54] LABS: CHLORIDE 98 mmol/L (98-107); SODIUM 135 mmol/L (136-145)
[2021-12-08 09:59] LABS: CALCIUM 8.3 mg/dL (8.5-10.1)
[2021-12-08 10:00] LABS: ALBUMIN 2.5 g/dl (3.4-5.0); ANION GAP 11 MMOL/L (8-16); CO2 26 mmol/L (21-32); GLUCOSE,RANDOM 96 mg/dL (74-106); MAGNESIUM 1.8 mg/dL (1.8-2.4)
[2021-12-08 10:02] LABS: PHOSPHOROUS 5.6 mg/dL (2.5-4.9)
[2021-12-08 10:03] LABS: SGOT/AST 16 U/L (15-37); SGPT/ALT 16 U/L (13-61)
[2021-12-08 10:04] LABS: BILIRUBIN,TOTAL 0.3 mg/dL (0.2-1); TOT PROT 5.8 g/dl (6.4-8.2)
[2021-12-08 10:05] LABS: ALK PHOS 64 U/L (45-117)
[2021-12-08] MEDS ORDERED: POTASSIUM CHLORIDE TABS 20 MEQ TABLET.ER (FP) PO ONE (10:07)
[2021-12-08 10:18] LABS: CREATININE 14.5 mg/dL (0.55-1.3)
[2021-12-08 11:42] LABS: BASO % 1.3 % (0-2.0); EOS % 2.8 % (0-4.5); HEMATOCRIT 28.8 % (32.4-45.2); HEMOGLOBIN 9.5 GM/dL (10.7-15.3); LYMPH % 22.7 % (8-40); MCH 28.6 pg (25.7-33.7); MCHC 32.8 g/dl (32.0-36.0); MEAN PLT VOLUME 7.7 fl (7.5-11.1); MONO % 8.8 % (3.8-10.2); NEUT % 64.4 % (42.8-82.8); PLATELET COUNT 292 10^3/uL (134-434); RBC 3.31 M/mm3 (3.60-5.2); RDW 12.7 % (11.6-15.6); WHITE BLOOD COUNT 6.9 K/mm3 (4.0-10.0)
[2021-12-08 18:45] VITALS: BP 128/73; PULSE 78; TEMP 99
== END 2021-12-08 19:07 | disposition home or self-care (01) | DRG 388 ==
LOC: JER 21:03 → JERBED 23:32 → J6S 12-04 04:54 → J4S 12-05 03:29
PROVIDERS: ADMIT Hospitalist; ATTEND Internal Medicine
PROC: 0D9670Z Drainage of Stomach with Drainage Device, Via Natural or Artificial Opening (ICD-10-PCS; principal; 2021-12-05)
DX: K56.699 Other intestinal obstruction unspecified as to partial versus complete obstruction (principal); N18.6 End stage renal disease; E87.2 Acidosis; I12.0 Hypertensive chronic kidney disease with stage 5 chronic kidney disease or end stage renal disease; J98.11 Atelectasis; E87.1 Hypo-osmolality and hyponatremia; Z99.2 Dependence on renal dialysis; E78.5 Hyperlipidemia, unspecified; K58.9 Irritable bowel syndrome, unspecified; R00.0 Tachycardia, unspecified; R50.9 Fever, unspecified; R11.2 Nausea with vomiting, unspecified; E86.1 Hypovolemia; D72.829 Elevated white blood cell count, unspecified; D64.9 Anemia, unspecified; I95.9 Hypotension, unspecified; E86.0 Dehydration
CPT/HCPCS: 0241U-QW; 36415; 71045-TC-FY; 74019-TC-FY; 74176-TC; 80053; 83605; 83690; 83735; 84100; 85025; 85610; 85730; 87040; 87070; 87075; 87205; 93005; 93010; J1644

== ENCOUNTER 2022-01-03 13:39 | Inpatient (IN) | payer BC ==
[2022-01-03] MEDS ORDERED: ONDANSETRON 4 MG/2 ML VIAL ONE ×2 (15:26→18:16)
[2022-01-03] MEDS ORDERED: ONDANSETRON 4 MG/2 ML VIAL IVPUSH ONE ×2 (15:37→18:15)
[2022-01-03] MEDS ORDERED: ACETAMINOPHEN 1000 MG/100 ML BAG IVPB ONE ×2 (15:56→22:30)
[2022-01-03] MEDS ORDERED: ACETAMINOPHEN INJECTION 100 ML IVPB ONE ×2 (16:00→22:56)
[2022-01-03 16:44] LABS: BASO % 0.4 % (0-2.0); EOS % 0.3 % (0-4.5); LYMPH % 6.7 % (8-40); MCH 28.1 pg (25.7-33.7); MCHC 32.5 g/dl (32.0-36.0); MEAN CELL VOLUME 86.5 fl (80-96); MEAN PLT VOLUME 8.9 fl (7.5-11.1); MONO % 2.4 % (3.8-10.2); NEUT % 90.2 % (42.8-82.8); PLATELET COUNT 409 10^3/uL (134-434); RBC 4.28 M/mm3 (3.60-5.2); RDW 13.3 % (11.6-15.6); WHITE BLOOD COUNT 12.9 K/mm3 (4.0-10.0)
[2022-01-03 16:53] LABS: INR 0.98 (0.83-1.09); PROTHROMBIN TIME (PATIENT) 11.3 SEC (9.7-13.0)
[2022-01-03 16:56] LABS: ACTIVATED PTT 35.7 SECONDS (25.2-36.5)
[2022-01-03 17:08] LABS: CHLORIDE 93 mmol/L (98-107); SODIUM 131 mmol/L (136-145)
[2022-01-03 17:10] LABS: CALCIUM 10.5 mg/dL (8.5-10.1); GLUCOSE,RANDOM 170 mg/dL (74-106)
[2022-01-03 17:11] LABS: ALBUMIN 3.8 g/dl (3.4-5.0); ANION GAP 15 MMOL/L (8-16); BLOOD UREA NITROGEN 63.8 mg/dL (7-18); CO2 23 mmol/L (21-32)
[2022-01-03 17:13] LABS: SGPT/ALT 25 U/L (13-61)
[2022-01-03 17:15] LABS: BILIRUBIN,TOTAL 0.5 mg/dL (0.2-1); SGOT/AST 43 U/L (15-37); TOT PROT 8.7 g/dl (6.4-8.2)
[2022-01-03 17:16] LABS: ALK PHOS 100 U/L (45-117)
[2022-01-03 17:19] LABS: LACTIC ACID 3.1 mmol/L (0.4-2.0)
[2022-01-03 17:31] LABS: CREATININE 12.9 mg/dL (0.55-1.3)
[2022-01-03 17:41] LABS: LIPASE 1498 U/L (73-393)
[2022-01-03] MEDS ORDERED: SODIUM CHLORIDE 0.9% 500 ML INFUS.BAG IV ONE (21:16)
[2022-01-04 00:35] LABS: CHLORIDE 91 mmol/L (98-107); SODIUM 133 mmol/L (136-145)
[2022-01-04 00:36] LABS: CALCIUM 9.7 mg/dL (8.5-10.1)
[2022-01-04 00:37] LABS: ANION GAP 15 MMOL/L (8-16); BLOOD UREA NITROGEN 66.6 mg/dL (7-18); CO2 28 mmol/L (21-32); GLUCOSE,RANDOM 113 mg/dL (74-106)
[2022-01-04 00:43] LABS: CREATININE 12.8 mg/dL (0.55-1.3)
[2022-01-04] MEDS ORDERED: AZITHROMYCIN IVPB 500 MG/250 ML BAG IVPB ONE ×2 (06:31→07:54)
[2022-01-04] MEDS ORDERED: CEFTRIAXONE 1 GM/50 ML BAG ONE ×2 (06:37→09:08)
[2022-01-04] MEDS: CEFTRIAXONE 1 GM in DEXTROSE 5%-WATER - 50 ML IVPB SCH ×2 (06:44→09:21)
[2022-01-04 07:26] LABS: HEMATOCRIT 32.5 % (32.4-45.2); HEMOGLOBIN 11.2 GM/dL (10.7-15.3); MCHC 34.4 g/dl (32.0-36.0); MEAN CELL VOLUME 84.4 fl (80-96); MEAN PLT VOLUME 7.5 fl (7.5-11.1); PLATELET COUNT 345 10^3/uL (134-434); RBC 3.85 M/mm3 (3.60-5.2); WHITE BLOOD COUNT 12.6 K/mm3 (4.0-10.0)
[2022-01-04 07:46] LABS: CHLORIDE 88 mmol/L (98-107); SODIUM 133 mmol/L (136-145)
[2022-01-04 07:49] LABS: ALBUMIN 3.2 g/dl (3.4-5.0); ANION GAP 14 MMOL/L (8-16); BLOOD UREA NITROGEN 74.3 mg/dL (7-18); CALCIUM 9.4 mg/dL (8.5-10.1); CO2 32 mmol/L (21-32); GLUCOSE,RANDOM 114 mg/dL (74-106)
[2022-01-04 07:52] LABS: PHOSPHOROUS 4.3 mg/dL (2.5-4.9); SGOT/AST 14 U/L (15-37); SGPT/ALT 19 U/L (13-61)
[2022-01-04 07:54] LABS: BILIRUBIN,TOTAL 0.3 mg/dL (0.2-1); TOT PROT 7.2 g/dl (6.4-8.2)
[2022-01-04 07:55] LABS: ALK PHOS 84 U/L (45-117)
[2022-01-04 07:58] LABS: CREATININE 13.8 mg/dL (0.55-1.3)
[2022-01-04] MEDS ORDERED: ACETAMINOPHEN 1000 MG/100 ML BAG IVPB ONE (11:17)
[2022-01-04] MEDS ORDERED: PHENOL 177 ML SPRAY BOTTLE MM PRN (23:19)
[2022-01-05] MEDS: PERITONEAL DIALYSIS 1.5% IVPB SCH ×5 (01:31→21:00)
[2022-01-05] MEDS: HEPARIN PEDIATRIC IVPB SCH ×5 (01:31→21:00)
[2022-01-05] MEDS ORDERED: AZITHROMYCIN IVPB 250 MG in DEXTROSE 5%-WATER - 250 ML IVPB SCH (06:32)
[2022-01-05] MEDS: INSULIN SLIDING SCALE (NOVOLOG) 1 VIAL SQ SCH ×5 (07:19→16:32)
[2022-01-05 09:37] LABS: BF WBC & OTHER NUCLEATED CELLS 14 /mm3
[2022-01-05 11:39] LABS: HEMATOCRIT 37.6 % (32.4-45.2); HEMOGLOBIN 12.3 GM/dL (10.7-15.3); MCH 28.1 pg (25.7-33.7); MCHC 32.7 g/dl (32.0-36.0); MEAN CELL VOLUME 85.8 fl (80-96); PLATELET COUNT 358 10^3/uL (134-434); RBC 4.39 M/mm3 (3.60-5.2); RDW 13.1 % (11.6-15.6); WHITE BLOOD COUNT 8.7 K/mm3 (4.0-10.0)
[2022-01-05 11:56] LABS: CHLORIDE 87 mmol/L (98-107); SODIUM 135 mmol/L (136-145)
[2022-01-05 11:59] LABS: BLOOD UREA NITROGEN 80.3 mg/dL (7-18); CALCIUM 9.4 mg/dL (8.5-10.1); GLUCOSE,RANDOM 110 mg/dL (74-106)
[2022-01-05 11:59] LABS: BODY FLUID BASOPHIL 1 %; BODY FLUID MACROPHAGES 90 %; BODYL FLD EOSINOPHIL 3 %
[2022-01-05 12:00] LABS: ALBUMIN 3.4 g/dl (3.4-5.0); ANION GAP 13 MMOL/L (8-16); CO2 35 mmol/L (21-32)
[2022-01-05 12:02] LABS: MAGNESIUM 2.1 mg/dL (1.8-2.4); PHOSPHOROUS 5.4 mg/dL (2.5-4.9); SGPT/ALT 18 U/L (13-61)
[2022-01-05 12:03] LABS: SGOT/AST 11 U/L (15-37)
[2022-01-05 12:04] LABS: BILIRUBIN,TOTAL 0.4 mg/dL (0.2-1); TOT PROT 7.3 g/dl (6.4-8.2)
[2022-01-05 12:05] LABS: ALK PHOS 84 U/L (45-117)
[2022-01-05] MEDS: DEXTROSE 5%-NORMAL SALINE 1,000 ML IV SCH (19:13)
[2022-01-05] MEDS ORDERED: ONDANSETRON 4 MG/2 ML VIAL IVPUSH ONE (22:02)
[2022-01-06] MEDS: HEPARIN PEDIATRIC IVPB SCH ×4 (03:34→22:30)
[2022-01-06] MEDS: PERITONEAL DIALYSIS 1.5% IVPB SCH ×4 (03:34→22:30)
[2022-01-06] MEDS: INSULIN SLIDING SCALE (NOVOLOG) 1 VIAL SQ SCH ×3 (07:07→16:52)
[2022-01-06 09:22] LABS: BASO % 0.9 % (0-2.0); EOS % 1.9 % (0-4.5); HEMOGLOBIN 11.9 GM/dL (10.7-15.3); LYMPH % 21.3 % (8-40); MCH 28.8 pg (25.7-33.7); MEAN CELL VOLUME 87.2 fl (80-96); MEAN PLT VOLUME 7.7 fl (7.5-11.1); MONO % 11.9 % (3.8-10.2); PLATELET COUNT 334 10^3/uL (134-434); RBC 4.13 M/mm3 (3.60-5.2); WHITE BLOOD COUNT 8.3 K/mm3 (4.0-10.0)
[2022-01-06 09:55] LABS: ALBUMIN 3.4 g/dl (3.4-5.0); CO2 39 mmol/L (21-32); GLUCOSE,RANDOM 117 mg/dL (74-106)
[2022-01-06 09:57] LABS: SGPT/ALT 16 U/L (13-61)
[2022-01-06 09:58] LABS: SGOT/AST 10 U/L (15-37)
[2022-01-06 09:59] LABS: BILIRUBIN,TOTAL 0.5 mg/dL (0.2-1); TOT PROT 7.2 g/dl (6.4-8.2)
[2022-01-06 10:00] LABS: ALK PHOS 79 U/L (45-117)
[2022-01-06 11:02] LABS: ANION GAP 13 MMOL/L (8-16); CHLORIDE 89 mmol/L (98-107); CREATININE 15.4 mg/dL (0.55-1.3); SODIUM 141 mmol/L (136-145)
[2022-01-06] MEDS ORDERED: PROCHLORPERAZINE INJECTION 10 MG/2 ML VIAL IVPB ONE (20:33)
[2022-01-06] MEDS: DEXTROSE 5%-NORMAL SALINE 1,000 ML IV SCH (21:25)
[2022-01-07] MEDS: PERITONEAL DIALYSIS 1.5% IVPB SCH ×4 (04:11→22:35)
[2022-01-07] MEDS: HEPARIN PEDIATRIC IVPB SCH ×4 (04:11→22:35)
[2022-01-07] MEDS: INSULIN SLIDING SCALE (NOVOLOG) 1 VIAL SQ SCH ×3 (06:05→16:47)
[2022-01-07 14:43] LABS: BASO % 0.8 % (0-2.0); EOS % 2.6 % (0-4.5); HEMOGLOBIN 10.5 GM/dL (10.7-15.3); LYMPH % 20.3 % (8-40); MCHC 31.8 g/dl (32.0-36.0); NEUT % 68.3 % (42.8-82.8); PLATELET COUNT 325 10^3/uL (134-434); RBC 3.75 M/mm3 (3.60-5.2); WHITE BLOOD COUNT 9.7 K/mm3 (4.0-10.0)
[2022-01-07 15:05] LABS: CHLORIDE 91 mmol/L (98-107); SODIUM 140 mmol/L (136-145)
[2022-01-07] MEDS ORDERED: POTASSIUM CHLORIDE ORAL LIQUID 20 MEQ/15 ML PO ONE (15:07)
[2022-01-07 15:10] LABS: ALBUMIN 3.4 g/dl (3.4-5.0); ANION GAP 11 MMOL/L (8-16); BLOOD UREA NITROGEN 53.8 mg/dL (7-18); CALCIUM 9.4 mg/dL (8.5-10.1); CO2 38 mmol/L (21-32); GLUCOSE,RANDOM 122 mg/dL (74-106)
[2022-01-07 15:13] LABS: SGOT/AST 17 U/L (15-37)
[2022-01-07 15:14] LABS: BILIRUBIN,TOTAL 0.3 mg/dL (0.2-1)
[2022-01-07 15:16] LABS: ALK PHOS 75 U/L (45-117)
[2022-01-07 15:21] LABS: SGPT/ALT 17 U/L (13-61)
[2022-01-07 15:27] LABS: CREATININE 14.3 mg/dL (0.55-1.3)
[2022-01-08] MEDS: PERITONEAL DIALYSIS 1.5% IVPB SCH ×4 (04:35→22:04)
[2022-01-08] MEDS: HEPARIN PEDIATRIC IVPB SCH ×4 (04:35→22:04)
[2022-01-08] MEDS: INSULIN SLIDING SCALE (NOVOLOG) 1 VIAL SQ SCH ×3 (06:20→16:33)
[2022-01-08 08:23] LABS: HEMOGLOBIN 10.1 GM/dL (10.7-15.3); MCH 28.3 pg (25.7-33.7); MCHC 32.6 g/dl (32.0-36.0); MEAN CELL VOLUME 86.8 fl (80-96); MEAN PLT VOLUME 8.2 fl (7.5-11.1); PLATELET COUNT 313 10^3/uL (134-434); RBC 3.57 M/mm3 (3.60-5.2); RDW 12.6 % (11.6-15.6); WHITE BLOOD COUNT 8.6 K/mm3 (4.0-10.0)
[2022-01-08 08:42] LABS: CHLORIDE 92 mmol/L (98-107); SODIUM 137 mmol/L (136-145)
[2022-01-08 08:46] LABS: ALBUMIN 3.1 g/dl (3.4-5.0); ANION GAP 10 MMOL/L (8-16); BLOOD UREA NITROGEN 44.5 mg/dL (7-18); CO2 34 mmol/L (21-32); GLUCOSE,RANDOM 97 mg/dL (74-106)
[2022-01-08 08:47] LABS: MAGNESIUM 1.5 mg/dL (1.8-2.4)
[2022-01-08 08:49] LABS: SGOT/AST 16 U/L (15-37); SGPT/ALT 19 U/L (13-61)
[2022-01-08 08:51] LABS: BILIRUBIN,TOTAL 0.8 mg/dL (0.2-1); TOT PROT 6.6 g/dl (6.4-8.2)
[2022-01-08 09:09] LABS: CREATININE 13.3 mg/dL (0.55-1.3)
[2022-01-08 09:23] LABS: ALK PHOS 72 U/L (45-117)
[2022-01-08] MEDS ORDERED: MAGNESIUM SULF 50% (8.12 MEQ/2 ML-1 GM VIAL) IVPB ONE (10:15)
[2022-01-08] MEDS ORDERED: MAGNESIUM OXIDE 400 MG TABLET (FP) PO ONE (12:21)
[2022-01-08 22:07] VITALS: RESP 18
[2022-01-09] MEDS: PERITONEAL DIALYSIS 1.5% IVPB SCH ×4 (05:12→18:20)
[2022-01-09] MEDS: HEPARIN PEDIATRIC IVPB SCH ×4 (05:12→18:20)
[2022-01-09] MEDS: INSULIN SLIDING SCALE (NOVOLOG) 1 VIAL SQ SCH ×2 (06:53→10:59)
[2022-01-09] MEDS ORDERED: HEPARIN PEDIATRIC IVPB SCH (20:05)
[2022-01-09] MEDS ORDERED: PERITONEAL DIALYSIS 2.5% IVPB SCH (20:05)
[2022-01-10] MEDS: PERITONEAL DIALYSIS 2.5% IVPB SCH ×4 (00:22→19:36)
[2022-01-10] MEDS: HEPARIN PEDIATRIC IVPB SCH ×4 (00:22→19:36)
[2022-01-10 08:07] LABS: BASO % 1.4 % (0-2.0); EOS % 5.1 % (0-4.5); HEMATOCRIT 25.1 % (32.4-45.2); HEMOGLOBIN 8.3 GM/dL (10.7-15.3); MCH 28.7 pg (25.7-33.7); MCHC 33.1 g/dl (32.0-36.0); MEAN CELL VOLUME 86.7 fl (80-96); MEAN PLT VOLUME 7.8 fl (7.5-11.1); MONO % 9.7 % (3.8-10.2); NEUT % 56.8 % (42.8-82.8); PLATELET COUNT 234 10^3/uL (134-434); RDW 12.7 % (11.6-15.6); WHITE BLOOD COUNT 4.3 K/mm3 (4.0-10.0)
[2022-01-10 09:44] LABS: CHLORIDE 92 mmol/L (98-107); SODIUM 135 mmol/L (136-145)
[2022-01-10 09:51] LABS: CALCIUM 8.7 mg/dL (8.5-10.1)
[2022-01-10 09:52] LABS: ALBUMIN 2.8 g/dl (3.4-5.0); ANION GAP 9 MMOL/L (8-16); BLOOD UREA NITROGEN 38.2 mg/dL (7-18); CO2 34 mmol/L (21-32); GLUCOSE,RANDOM 116 mg/dL (74-106)
[2022-01-10 09:55] LABS: SGOT/AST 15 U/L (15-37); SGPT/ALT 17 U/L (13-61)
[2022-01-10 09:56] LABS: BILIRUBIN,TOTAL 0.3 mg/dL (0.2-1); TOT PROT 5.6 g/dl (6.4-8.2)
[2022-01-10 09:58] LABS: ALK PHOS 60 U/L (45-117)
[2022-01-10 10:01] LABS: CREATININE 12.6 mg/dL (0.55-1.3)
[2022-01-10] MEDS ORDERED: POTASSIUM CHLORIDE ORAL LIQUID 20 MEQ/15 ML PO ONE ×2 (11:50→19:42)
[2022-01-10 13:39] VITALS: BMI 32.2
[2022-01-10] MEDS: KCL 10 MEQ IVPB 10 MEQ/100 ML INFUS.BAG IVPB SCH ×2 (14:30→17:30)
[2022-01-10] MEDS: POTASSIUM CHLORIDE 30 MEQ in SODIUM CHLORIDE 1,000 ML IV SCH (15:30)
[2022-01-10] MEDS ORDERED: POTASSIUM CHLORIDE TABS 20 MEQ TABLET.ER (FP) PO ONE (19:45)
[2022-01-11] MEDS: HEPARIN PEDIATRIC IVPB SCH ×3 (00:28→11:51)
[2022-01-11] MEDS: PERITONEAL DIALYSIS 2.5% IVPB SCH ×3 (00:28→11:51)
[2022-01-11] MEDS: POTASSIUM CHLORIDE 30 MEQ in SODIUM CHLORIDE 1,000 ML IV SCH (03:27)
[2022-01-11 06:40] LABS: HEMOGLOBIN 7.6 GM/dL (10.7-15.3); MCH 28.5 pg (25.7-33.7); MCHC 33.1 g/dl (32.0-36.0); MEAN CELL VOLUME 86.1 fl (80-96); MEAN PLT VOLUME 8.1 fl (7.5-11.1); PLATELET COUNT 219 10^3/uL (134-434); RBC 2.67 M/mm3 (3.60-5.2); RDW 12.2 % (11.6-15.6); WHITE BLOOD COUNT 5.2 K/mm3 (4.0-10.0)
[2022-01-11 06:58] LABS: CHLORIDE 93 mmol/L (98-107); SODIUM 133 mmol/L (136-145)
[2022-01-11 07:04] LABS: ANION GAP 26 MMOL/L (8-16); CO2 15 mmol/L (21-32)
[2022-01-11 07:05] LABS: BLOOD UREA NITROGEN 38.7 mg/dL (7-18)
[2022-01-11 07:07] LABS: PHOSPHOROUS 6.2 mg/dL (2.5-4.9); SGOT/AST 14 U/L (15-37); SGPT/ALT 15 U/L (13-61)
[2022-01-11 07:09] LABS: BILIRUBIN,TOTAL 0.3 mg/dL (0.2-1)
[2022-01-11 07:10] LABS: ALK PHOS 56 U/L (45-117)
[2022-01-11] MEDS ORDERED: POTASSIUM CHLORIDE ORAL LIQUID 20 MEQ/15 ML PO ONE (07:27)
[2022-01-11] MEDS ORDERED: MAGNESIUM 2GM/50ML STERILE WATER IVPB IVPB ONE (07:27)
[2022-01-11 07:58] LABS: ALBUMIN 2.4 g/dl (3.4-5.0); CALCIUM 8.1 mg/dL (8.5-10.1); CREATININE 13.8 mg/dL (0.55-1.3); GLUCOSE,RANDOM 92 mg/dL (74-106)
[2022-01-11 08:15] LABS: RETICULOCYTES 1.61 % (0.5-1.5)
[2022-01-11 08:23] LABS: MAGNESIUM 1.7 mg/dL (1.8-2.4)
[2022-01-11] MEDS ORDERED: MAGNESIUM SULF 50% (8.12 MEQ/2 ML-1 GM VIAL) IVPB SCH (08:45)
[2022-01-11] MEDS ORDERED: MAGNESIUM OXIDE 400 MG TABLET (FP) PO ONE (08:48)
[2022-01-11 08:56] VITALS: BP 154/85; PULSE 95; TEMP 98.9
[2022-01-11] MEDS ORDERED: MAGNESIUM 4GM/H20 - 4 GM/100 ML IVPB IVPB ONE (09:00)
[2022-01-11] MEDS ORDERED: POTASSIUM CHLORIDE TABS 20 MEQ TABLET.ER (FP) PO ONE (09:09)
[2022-01-11] MEDS ORDERED: IRON SUCROSE INJECTION 100 MG in SODIUM CHLORIDE 95 ML IVPB ONE (12:00)
[2022-01-11] MEDS ORDERED: EPOETIN ALFA-EPBX 10,000 UNIT/ML VIAL SQ ONE (12:00)
[2022-01-11 16:30] LABS: CHLORIDE 91 mmol/L (98-107); SODIUM 132 mmol/L (136-145)
[2022-01-11 16:33] LABS: CALCIUM 8.4 mg/dL (8.5-10.1)
[2022-01-11 16:34] LABS: ALBUMIN 2.8 g/dl (3.4-5.0); ANION GAP 12 MMOL/L (8-16); CO2 29 mmol/L (21-32); GLUCOSE,RANDOM 121 mg/dL (74-106); MAGNESIUM 1.8 mg/dL (1.8-2.4)
[2022-01-11 16:36] LABS: SGPT/ALT 19 U/L (13-61)
[2022-01-11 16:38] LABS: TOT PROT 5.9 g/dl (6.4-8.2)
[2022-01-11 16:39] LABS: BILIRUBIN,TOTAL 0.2 mg/dL (0.2-1)
[2022-01-11 16:40] LABS: ALK PHOS 74 U/L (45-117)
[2022-01-11 16:45] LABS: SGOT/AST 18 U/L (15-37)
[2022-01-11 18:39] LABS: CREATININE 14.3 mg/dL (0.55-1.3)
[2022-01-11 18:43] LABS: IRON SERUM 170 ug/dL (50-175)
[2022-01-11 18:45] LABS: TOTAL IRON BINDING CAPACITY 206 ug/dL (250-450)
[2022-01-11] MEDS ORDERED: CARVEDILOL 25 MG TABLET (FP) PO SCH (22:00)
== END 2022-01-11 18:39 | disposition home or self-care (01) | DRG 388 ==
LOC: JER 13:39 → JERBED 15:56 → J4S 01-04 23:08
PROVIDERS: ADMIT Internal Medicine
DX: K56.609 Unspecified intestinal obstruction, unspecified as to partial versus complete obstruction (principal); K85.90 Acute pancreatitis without necrosis or infection, unspecified; N18.6 End stage renal disease; E87.2 Acidosis; I12.0 Hypertensive chronic kidney disease with stage 5 chronic kidney disease or end stage renal disease; R11.2 Nausea with vomiting, unspecified; E78.5 Hyperlipidemia, unspecified; D64.9 Anemia, unspecified; D72.829 Elevated white blood cell count, unspecified; E11.65 Type 2 diabetes mellitus with hyperglycemia; E66.9 Obesity, unspecified; Z68.32 Body mass index [BMI] 32.0-32.9, adult; Z99.2 Dependence on renal dialysis; Z98.84 Bariatric surgery status
CPT/HCPCS: 36415; 71045-TC-FY; 74018-TC-FY; 74019-TC-FY; 74176-TC; 80048; 80053; 82272; 82728; 82962; 83540; 83550; 83605; 83690; 83735; 84100; 85025; 85027; 85045; 85610; 85730; 87040; 87070; 87075; 87205; 93005; 93010; 97116-GP; 97161-GP; 99285-25; C9803-CS; J1756; Q5106; Q9967; U0003; U0005

== ENCOUNTER 2022-01-17 00:45 | Inpatient (IN) | payer BC, OTHER ==
[2022-01-17] MEDS ORDERED: ACETAMINOPHEN 1000 MG/100 ML BAG IVPB ONE (00:50)
[2022-01-17] MEDS ORDERED: ONDANSETRON 4 MG/2 ML VIAL IVPUSH ONE (01:01)
[2022-01-17] MEDS ORDERED: morphine CARPU-JECT 4 MG/1 ML DISP.SYRIN IVPUSH ONE (01:03)
[2022-01-17] MEDS ORDERED: morphine SULFATE 4 MG/ML VIAL ONE (01:18)
[2022-01-17] MEDS ORDERED: ONDANSETRON 4 MG/2 ML VIAL ONE (01:53)
[2022-01-17 02:32] LABS: BASO % 0.8 % (0-2.0); EOS % 1.3 % (0-4.5); HEMATOCRIT 27.3 % (32.4-45.2); LYMPH % 12.1 % (8-40); MEAN CELL VOLUME 87.9 fl (80-96); MEAN PLT VOLUME 7.8 fl (7.5-11.1); MONO % 4.9 % (3.8-10.2); NEUT % 80.9 % (42.8-82.8); PLATELET COUNT 369 10^3/uL (134-434); RDW 13.2 % (11.6-15.6); WHITE BLOOD COUNT 9.5 K/mm3 (4.0-10.0)
[2022-01-17 02:38] LABS: INR 0.94 (0.83-1.09); PROTHROMBIN TIME (PATIENT) 10.8 SEC (9.7-13.0)
[2022-01-17] MEDS ORDERED: ACETAMINOPHEN INJECTION 100 ML IVPB ONE (02:43)
[2022-01-17 02:52] LABS: CHLORIDE 97 mmol/L (98-107); SODIUM 135 mmol/L (136-145)
[2022-01-17 02:55] LABS: ANION GAP 10 MMOL/L (8-16); BLOOD UREA NITROGEN 39.8 mg/dL (7-18); CO2 28 mmol/L (21-32); GLUCOSE,RANDOM 120 mg/dL (74-106); LIPASE 293 U/L (73-393); MAGNESIUM 2.1 mg/dL (1.8-2.4)
[2022-01-17 02:58] LABS: SGOT/AST 19 U/L (15-37); SGPT/ALT 23 U/L (13-61)
[2022-01-17 03:00] LABS: TOT PROT 6.2 g/dl (6.4-8.2)
[2022-01-17 03:01] LABS: ALK PHOS 64 U/L (45-117)
[2022-01-17] MEDS ORDERED: LIDOCAINE HCL 2% JELLY 10 ML CARTRIDGE UR ONE (03:03)
[2022-01-17 03:08] LABS: BILIRUBIN,TOTAL 0.2 mg/dL (0.2-1); CREATININE 12.5 mg/dL (0.55-1.3)
[2022-01-17] MEDS ORDERED: LIDOCAINE HCL 2% JELLY 11 ML TP ONE (03:10)
[2022-01-17 05:57] VITALS: BMI 34.3
[2022-01-17] MEDS ORDERED: ONDANSETRON 4 MG/2 ML VIAL IVPUSH PRN (06:38)
[2022-01-17] MEDS: ACETAMINOPHEN 1000 MG/100 ML BAG IVPB PRN (07:52)
[2022-01-17] MEDS ORDERED: PERITONEAL DIALYSIS 2.5% SOLN 2,500 ML IP SCH (09:00)
[2022-01-17 09:36] LABS: EPI CELLS 5 /uL (0-25.1); HYALINE CASTS 0 /uL (0-3.1); PH,URINE 8.5 (5.0-8.0); URINE APPEARANCE CLEAR; URINE BACTERIA 34 /uL (0-1359); URINE BILIRUBIN NEGATIVE (NEGATIVE); URINE COLOR YELLOW; URINE GLUCOSE (UA) TRACE (NEGATIVE); URINE KETONE NEGATIVE (NEGATIVE); URINE LEUK ESTERASE NEGATIVE (NEGATIVE); URINE NITRITE NEGATIVE (NEGATIVE); URINE PROTEIN 2+ (NEGATIVE); URINE RBC 6 /uL (0-23.9); URINE UROBILINOGEN 0.2 mg/dL (0.2-1.0); URINE WBC 1 /uL (0-25.8)
[2022-01-17] MEDS ORDERED: SODIUM CHLORIDE 1,000 ML IV SCH (11:30)
[2022-01-17] MEDS: PERITONEAL DIALYSIS 2.5% IP SCH ×3 (14:09→22:00)
[2022-01-17] MEDS: HEPARIN IP SCH ×3 (14:09→22:00)
[2022-01-17 22:52] VITALS: RESP 16
[2022-01-17 23:23] LABS: BF WBC & OTHER NUCLEATED CELLS 17 /mm3
[2022-01-17 23:56] LABS: BODY FLUID MACROPHAGES 28 %; BODY FLUID MESOTHELIAL 49 %; BODY FLUID MONOCYTE 5 %
[2022-01-18] MEDS: ACETAMINOPHEN 1000 MG/100 ML BAG IVPB PRN (00:05)
[2022-01-18] MEDS: PERITONEAL DIALYSIS 2.5% IP SCH (04:00)
[2022-01-18] MEDS: HEPARIN IP SCH (04:00)
[2022-01-18 06:17] VITALS: BP 156/90; PULSE 88; TEMP 98.4
[2022-01-18 07:20] LABS: BASO % 0.6 % (0-2.0); EOS % 4.9 % (0-4.5); HEMATOCRIT 25.6 % (32.4-45.2); HEMOGLOBIN 8.3 GM/dL (10.7-15.3); MCH 28.4 pg (25.7-33.7); MCHC 32.4 g/dl (32.0-36.0); MEAN CELL VOLUME 87.8 fl (80-96); MEAN PLT VOLUME 7.7 fl (7.5-11.1); MONO % 13.3 % (3.8-10.2); NEUT % 60.2 % (42.8-82.8); PLATELET COUNT 353 10^3/uL (134-434); RBC 2.91 M/mm3 (3.60-5.2); RDW 13.1 % (11.6-15.6); WHITE BLOOD COUNT 5.5 K/mm3 (4.0-10.0)
[2022-01-18 07:37] LABS: CALCIUM 8.7 mg/dL (8.5-10.1)
[2022-01-18 07:38] LABS: ALBUMIN 2.8 g/dl (3.4-5.0); ANION GAP 11 MMOL/L (8-16); BLOOD UREA NITROGEN 39.5 mg/dL (7-18); CHLORIDE 100 mmol/L (98-107); CO2 30 mmol/L (21-32); GLUCOSE,RANDOM 115 mg/dL (74-106); SODIUM 141 mmol/L (136-145)
[2022-01-18 07:41] LABS: BILIRUBIN,TOTAL 0.2 mg/dL (0.2-1); SGOT/AST 13 U/L (15-37); SGPT/ALT 18 U/L (13-61)
[2022-01-18 07:43] LABS: TOT PROT 5.7 g/dl (6.4-8.2)
[2022-01-18 07:44] LABS: ALK PHOS 65 U/L (45-117)
[2022-01-18 08:32] LABS: CREATININE 12.8 mg/dL (0.55-1.3)
[2022-01-18 11:39] LABS: IRON SERUM 46 ug/dL (50-175); PHOSPHOROUS 3.4 mg/dL (2.5-4.9)
[2022-01-18 11:41] LABS: TOTAL IRON BINDING CAPACITY 241 ug/dL (250-450)
== END 2022-01-18 11:43 | disposition short-term general hospital (02) | DRG 388 ==
LOC: JER 00:45 → JERBED 02:18 → J7W 05:20 → J4S 08:52
PROVIDERS: ADMIT Internal Medicine; ATTEND Internal Medicine
DX: K56.609 Unspecified intestinal obstruction, unspecified as to partial versus complete obstruction (principal); N18.6 End stage renal disease; I12.0 Hypertensive chronic kidney disease with stage 5 chronic kidney disease or end stage renal disease; E87.20 Acidosis, unspecified; Z99.2 Dependence on renal dialysis; E78.5 Hyperlipidemia, unspecified; Z09 Encounter for follow-up examination after completed treatment for conditions other than malignant neoplasm; Z86.16 Personal history of COVID-19; D63.1 Anemia in chronic kidney disease; D72.829 Elevated white blood cell count, unspecified
CPT/HCPCS: 36415; 71045-TC-FY; 74176-TC; 80053; 81003; 82550; 82728; 83540; 83550; 83605; 83690; 83735; 84100; 84484; 85025; 85610; 85730; 87070; 87075; 87086; 87205; 93005; 93010; 99285-25; C9803-CS; J1644; U0003; U0005